=== PATIENT | female | born 1995 | race Caucasian/White ===

== ENCOUNTER 2023-09-02 20:44 | Outpatient (REF) | payer OTHER, SELFPAY | END 2023-09-02 20:45 | disposition home or self-care (01) | LOC: LAB 20:44 | PROVIDERS: Visit Provider Obstetrics & Gynecology | DX: N64.52 Nipple discharge (principal) | CPT/HCPCS: 87070; 87075; 87150 ==

== ENCOUNTER 2023-09-06 08:50 | Outpatient (OUT) | payer OTHER, SELFPAY ==
--- NOTE | 2023-09-06 08:58 | US_ITS ---
The [address] [address] Patient Name: VALERIE LAKHANI MRN: [id number] date: 1995 Sex: F Assigned Patient Location: US Current Patient Location: Accession/Order Number: [id number] Exam Date: 09/06/2023 09:03 Report Date: 09/06/2023 10:12 At the request of: RIAN WONG Procedure: US pelvis transvaginal EXAM: US pelvis transvaginal HISTORY: . Pelvic Pain R10.2 . COMPARISON: None. TECHNIQUE: Transvaginal scanning was performed FINDINGS: Scanning of the pelvis demonstrates uterus measuring 8.4 x 4.2 x 5.2 cm. Endometrial complex measures 6.6 mm. There is a nabothian cysts within the cervix. Neither ovary was identified. No fluid is noted in the cul-de-sac. US/US pelvis transvaginal IMPRESSION: 1. Normal-appearing uterus and endometrial complex. 2. Small nabothian cysts within the cervix. 3. Neither ovary was identified. Electronically authenticated by: PRAMOD SHERMAN Date: 09/06/2023 10:12
[2023-09-06 10:20] LABS: Basophils Percent Auto 0.4 % (0.2-2.0); Eosinophils Absolute Auto 0.2 10^3/uL (0.0-0.7); Eosinophils Percent Auto 2.1 % (0.9-7.0); Hematocrit 39.3 % (36.0-48.0); Hemoglobin 12.8 g/dL (12.0-16.0); Immature Granulocytes Abs Auto 0.02 10^3/uL (0.00-0.03); Immature Granulocytes Pct Auto 0.2 % (0.0-0.5); Lymphocytes Absolute Auto 2.1 10^3/uL (1.2-3.8); Lymphocytes Percent Auto 25.1 % (20.5-60.0); Mean Corpuscular HGB Conc 32.6 g/dL (29.9-35.2); Mean Corpuscular Hemoglobin 27.5 pg (26.7-34.0); Mean Corpuscular Volume 84.3 fL (81.0-99.0); Mean Platelet Volume 11.1 fL (9.5-13.5); Monocytes Absolute Auto 0.4 10^3/uL (0.3-0.8); Monocytes Percent Auto 4.7 % (1.7-12.0); Neutrophils Absolute Auto 5.6 10^3/uL (1.4-6.5); Neutrophils Percent Auto 67.5 % (43.0-75.0); Platelet Count 291 10^3/uL (150-450); Red Blood Count 4.66 10^6/uL (4.20-5.40); Red Cell Distribution Width 13.7 % (11.0-15.0); White Blood Count 8.3 10^3/uL (4.0-11.0)
[2023-09-06 10:47] LABS: Estimated Average Glucose 97 mg/dL
[2023-09-06 10:56] LABS: HCG Quantitative <1 mIU/mL; Thyroid Stimulating Hormone 5.942 uIU/mL (0.358-3.740)
[2023-09-07 05:10] LABS: DHEA-Sulfate 62.3 ug/dL (84.8-378.0); FSH <0.3 mIU/mL (.); Luteinizing Hormone(LH) 0.4 mIU/mL (.)
[2023-09-12 06:09] LABS: DHEA, Serum 138 ng/dL (31-701)
== END 2023-09-06 08:51 | disposition home or self-care (01) ==
PROVIDERS: Visit Provider Obstetrics & Gynecology
DX: R10.2 Pelvic and perineal pain (principal); N64.52 Nipple discharge
CPT/HCPCS: 36415; 76830; 82626; 82627; 83001; 83002; 83036; 84439; 84443; 84702; 85025

== ENCOUNTER 2024-05-19 19:43 | Outpatient (REF) | payer OTHER, SELFPAY ==
[2024-05-23 11:10] LABS: Age Gdln ACOG Testing Note (.); IGP, rfx Aptima HPV ASCU Note (.)
== END 2024-05-19 19:44 | disposition home or self-care (01) ==
LOC: LAB 19:43
PROVIDERS: Visit Provider Obstetrics & Gynecology
DX: Z01.419 Encounter for gynecological examination (general) (routine) without abnormal findings (principal)
CPT/HCPCS: 88175

== ENCOUNTER 2024-09-18 07:27 | Outpatient (OUT) | payer OTHER, SELFPAY ==
--- OUTSIDE RECORDS SUMMARY | 2024-09-18 07:30 | XMS_ITS | CCD ---
Author Organization [facility] Care Team Providers Care Tour Consultant Name Role Phone Mee Marsh Primary Care Provider PHU MCGEE Admitting Unavailable PHU MCGEE Attending Unavailable MISC, DR PRADO Primary Care Unavailable PHU MCGEE Consulting Unavailable PHU MCGEE Admitting Unavailable PHU MCGEE Attending Unavailable PHU MCGEE Primary Care Unavailable PHU MCGEE Consulting Unavailable JUDITH, DR MODI Admitting Unavailable JUDITH, DR MODI Attending Unavailable JUDITH, DR MODI Consulting Unavailable REQUEST, NONE LISTED Primary Care Unavaila ble JUDITH, DR MODI Admitting Unavailable JUDITH, DR MODI Attending Unavailable REQUEST, NONE LISTED Primary Care Unavaila ble JUDITH, DR MODI Consulting Unavailable ZIEBER, DR MICKEY Zepeda Consulting Unavailable JUDITH, DR MODI Admitting Unavailable JUDITH, DR MODI Attending Unavailable REQUEST, NONE LISTED Primary Care Unavaila ble JUDITH, DR MODI Consulting Unavailable PHU MCGEE Admitting Unavailable PHU MCGEE Attending Unavailable PHU MCGEE Primary Care Unavailable PHU MCGEE Admitting Unavailable PHU MCGEE Attending Unavailable ARELY, PHU Primary Care Unavailable JUDITH, DR MODI Consulting Unavailable PHU MCGEE Procedure Practitioner Unavailab PHU Carrillo Consulting Unavailable EFRAIN TRIANA Consulting Unavailable PAOLAC, DR PRADO Primary Care Unavailable PAY, DR NGUYỄN Admitting Unavailable PAY, DR NGUYỄN Attending Unavailable ROLANDO RALPH Consulting Unavailable ANNE-MARIE RUIZ Consulting Unavailable Mee Morse APRN, CNP Primary Care Provider Aniyah Waite Primary Care Physician JUAN JOSE Mays Attending Un available MARIE RUVALCABA Referring Unavailable MIGHT, MEE W Primary Care Unavailable MIGHT, MEE W Referring Unavailable MIGHT, MEE W Primary Care Unavailable SAVITA GARCIA Referring Unavailable MIGHT, MEE W Primary Care Unavailable MIGHT, MEE W Referring Unavailable MIGHT, MEE W Primary Care Unavailable MIGHT, MEE W Primary Care Unavailable MIGHT, MEE W Referring Unavailable MIGHT, MEE W Primary Care Unavailable MIGHT, MEE W Referring Unavailable MIGHT, MEE W Referring Unavailable MIGHT, MEE W Primary Care Unavailable MIGHT, MEE W Referring Unavailable MIGHT, MEE W Primary Care Unavailable MIGHT, MEE W Referring Unavailable MIGHT, MEE W Primary Care Unavailable MIGHT, MEE W Referring Unavailable MIGHT, MEE W Primary Care Unavailable BARBARA CARLTON Attending Unavailable MIGHT, MEE W Primary Care Unavailable DAVID HOFFMAN Attending Unavailable MIGHT, MEE W Primary Care Unavailable JUAN DAVID LEVY Attending Unavailable SAVITA GARCIA Attending Unavailable SAVITA GARCIA Attending Unavailable SAVITA GARCIA Attending Unavailable JUAN DAVID LEVY Attending Unavailable SAVITA GARCIA Attending Unavailable Unavailable Primary Care Provider Unavailabl e Allergies Allergy Classification Reported Allergen(s) Allergy Type Date of Onset Reaction(s) Facility Penicillins (antibiotic) (1 source) Penicillins Drug Allergy 6 [facility] (8 sources) Penicillins; Translations: [PENICILLINS] Propensity to adverse reactions to drug 6 [place] (1 source) Penicillins Drug allergy (disorder) 3 [facility] (5 sources) Ampicillin; Translations: [ampicillin] Drug Allergy 1 [facility] (3 sources) Penicillins Propensity to adverse reactions to drug 6 [facility] (1 source) Penicillin G Drug Allergy 3 [facility] (1 source) Penicillins Drug Intolerance 6 [facility] Work Phone: Medications Current Medications Medication Drug Class(es) Dates Sig (Normalized) Sig (Original) amitriptyline hydrochloride 150 mg oral tablet (3 sources) Tricyclic Antidepressant Start: 05-30-2023 End: 02-26-2024 take 1 tablet by mouth once daily amitriptyline (ELAVIL) 150 MG tablet Indications: Nonintractable chronic migraine Take 1 tablet by mouth nightly 90 tablet 1 05/30/2023 Active 24 hr buPROPion hydrochloride 150 mg extended release oral tablet (1 source) Aminoketone Start: 03-10-2021 take 1 tablet by mouth once daily in the morning buPROPion (WELLBUTRIN XL) 150 MG extended release tablet Indications: Dysthymia , Fatigue due to depression Take 1 tablet by mouth every morning 30 tablet 0 03/10/2021 Active ciprofloxacin 500 mg oral tablet (1 source) Quinolone Antimicrobial Start: 08-09-2019 End: 2019 take 1 tablet by mouth twice daily ciprofloxacin (CIPRO) 500 MG tablet Take 1 tablet by mouth 2 times daily for 10 days 20 tablet 0 08/09/2019 2019 Active cyclobenzaprine hydrochloride 10 mg oral tablet (4 sources) Muscle Relaxant Start: 01-28-2024 cyclobenzaprine (Flexeril) 10 MG tablet 01/28/2024 Active End: 02-26-2024 take 1 tablet by mouth three times daily cyclobenzaprine 10 mg tablet 02/26/2024 take 1 tablet (10 mg) by oral route 3 times per day desogestrel 0.15 mg / ethinyl estradiol 0.03 mg oral tablet (5 sources) Progestin, Estrogen Start: 08-28-2024 End: 08-28-2025 desogestrel-ethinyl estradiol (Apri) 0.15-30 MG-MCG tablet Indications: control counseling Take 1 tablet by mouth Daily 28 tablet 12 08/28/2024 08/28/2025 Active Start: 10-11-2023 take 1 tablet by brandon th once daily in the morning ENSKYCE 0.15-30 MG-MCG per tablet Take 1 tablet by mouth every morning 0 10/11/2023 Active take 1 tablet by brandon th once daily Enskyce 0.15 mg-0.03 mg tablet take 1 tablet by oral route once daily FLUoxetine 10 mg oral capsule (1 source) Serotonin Reuptake Inhibitor Start: 12-23-2020 take 1 capsule by mouth once daily FLUoxetine (PROZAC) 10 MG capsule Indications: Dysthymia Take 1 capsule by mouth daily 90 capsule 1 12/23/2020 Active fluticasone propionate 0.05 mg/actuat metered dose nasal spray (3 sources) Corticosteroid Start: 06-09-2020 take 1 spray(s) nasal route once daily fluticasone (FLONASE) 50 MCG/ACT nasal spray Indications: Seasonal allergic rhinitis due to pollen 1 spray by Each Nostril route daily 1 Bottle 1 06/09/2020 Active hydrOXYzine hydrochloride 25 mg oral tablet (4 sources) Antihistamine Start: 11-29-2022 take 1 tablet by mouth once daily as needed for anxiety hydrOXYzine HCl (ATARAX) 25 MG tablet Indications: Primary insomnia Take 1 tablet by mouth nightly as needed for Anxiety 90 tablet 1 11/29/2022 Active End: 02-26-2024 take 1 tablet by mouth three times daily hydroxyzine HCl 25 mg tablet 02/26/2024 take 1 tablet (25 mg) by oral route 3 times per day ibuprofen 400 mg oral tablet (5 sources) Nonsteroidal Anti-inflammatory Drug Start: 12-13-2023 take 1 tablet by mouth every six hours as needed ibuprofen 400 MG tablet Take 1 tablet by mouth every 6 (six) hours if needed 12/13/2023 Active ketorolac tromethamine 10 mg oral tablet (2 sources) Nonsteroidal Anti-inflammatory Drug, Cyclooxygenase Inhibitor Start: 06-17-2024 take 1 tablet by mouth every eight hours as needed for pain ketorolac (TORADOL) 10 MG tablet Take 1 tablet by mouth every 8 hours as needed for Pain 15 tablet 0 06/17/2024 Active Start: 06-17-2024 ketorolac (TOR ADOL) injection 15 mg levocetirizine dihydrochloride 5 mg oral tablet (2 sources) Histamine-1 Receptor Antagonist Start: 06-09-2020 take 1 tablet by mouth once daily levocetirizine (XYZAL) 5 MG tablet Indications: Seasonal allergic rhinitis due to pollen Take 1 tablet by mouth nightly 30 tablet 0 06/09/2020 Active levothyroxine sodium 0.15 mg oral tablet (11 sources) l-Thyroxine Start: 04-10-2024 take 1 tablet by mouth once daily levothyroxine (SYNTHROID) 150 MCG tablet Indications: Congenital hypothyroidism without goiter Take 1 tablet by mouth daily 30 tablet 0 04/10/2024 Active Start: 11-01-2023 take 1 tablet by brandon th once daily in the morning levothyroxine (SYNTHROID) 150 MCG tablet Take 1 tablet by mouth every morning Take on an empty stomach. 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 Take 1 tablet by mouth Daily 90 tablet 1 06/29/2020 Active take 1 tablet by brandon th once daily levothyroxine (SYNTHROID) 75 MCG tablet Take 75 mcg by mouth Daily 0 Active lidocaine hydrochloride 20 mg/ml mucous membrane topical solution (2 sources) Antiarrhythmic, Amide Local Anesthetic Start: 12-16-2023 lidocaine viscous hcl (XYLOCAINE) 2 % SOLN solution Indications: Strep pharyngitis Take 15 mLs by mouth as needed for Irritation 100 mL 0 12/16/2023 Active magnesium oxide 400 mg oral tablet (1 source) take 1 tablet by mouth in the morning magnesium oxide (Mag-Ox) 400 MG tablet Take 400 mg by mouth in the morning. Active 24 hr metFORMIN hydrochloride 500 mg extended release oral tablet (1 source) Biguanide Start: 03-18-2024 take 1 tablet by mouth every twenty-four hours at mealtime metFORMIN XR (Glucophage-XR) 500 MG 24 hr tablet Indications: Weight gain Take 1 tablet (500 mg) by mouth in the evening. Take with meals Do not crush, chew, or split. 90 tablet 03/18/2024 Active metroNIDAZOLE 500 mg oral tablet (1 source) Nitroimidazole Antimicrobial Start: 08-09-2019 End: 2019 take 1 tablet by mouth three times daily metroNIDAZOLE (FLAGYL) 500 MG tablet Take 1 tablet by mouth 3 times daily for 10 days 30 tablet 0 08/09/2019 2019 Active phentermine hydrochloride 37.5 mg oral tablet (5 sources) Sympathomimetic Amine Anorectic Start: 03-18-2024 take 1 tablet by mouth before mealtime phentermine (Adipex-P) 37.5 MG tablet Indications: Encounter for weight management Take 1 tablet (37.5 mg) by mouth in the morning. Take before meals. 90 tablet 04/15/2024 Active Start: 01-16-2024 End: 02-15-2024 take 1 tablet by mouth before mealtime phentermine (Adipex-P) 37.5 MG tablet Indications: Encounter for weight management Take 1 tablet (37.5 mg) by mouth in the morning. Take before meals. 30 tablet 01/16/2024 Active take 0.5 tablet by m outh once daily before breakfast Adipex-P 37.5 mg tablet take one-half tablet (18.75 mg) by oral route once daily before breakfast propranolol hydrochloride 40 mg oral tablet (5 sources) beta-Adrenergic Edith Start: 02-27-2023 End: 02-26-2024 take 1 tablet by mouth twice daily propranolol (INDERAL) 40 MG tablet Indications: Nonintractable chronic migraine Take 1 tablet by mouth 2 times daily 180 tablet 1 02/27/2023 Active Start: 12-23-2020 take 1 tablet by brandon th twice daily propranolol (INDERAL) 20 MG tablet Indications: Chronic migraine Take 1 tablet by mouth 2 times daily 180 tablet 1 12/23/2020 Active thyroid (fpc) 90 mg oral tablet (1 source) Start: 05-13-2024 take 1 tablet by mouth once daily thyroid ([place]) 90 MG tablet Take 1 tablet by mouth Daily 05/13/2024 Active topiramate 100 mg oral tablet (2 sources) Start: 09-09-2020 take 1 tablet by mouth once daily topiramate (TOPAMAX) 100 MG tablet Indications: Chronic migraine Take 1 tablet by mouth daily 30 tablet 1 09/09/2020 Active Start: 06-29-2020 take 1 tablet by brandon th once daily topiramate (TOPAMAX) 25 MG tablet Indications: Chronic migraine Take 1 tablet by mouth nightly 30 tablet 0 06/29/2020 Active Completed/Discontinued Medications Medication Drug Class(es) Dates Sig (Normalized) Sig (Original) dicyclomine hydrochloride 20 mg oral tablet (2 sources) Anticholinergic Start: 08-09-2019 End: 03-14-2020 take 1 tablet by mouth every four hours as needed for pain dicyclomine (BENTYL) 20 MG tablet Take 1 tablet by mouth every 4 hours as needed (Abdominal pain/cramping) 30 tablet 0 08/09/2019 03/14/2020 Discontinued (Therapy completed) 2 ml famotidine 10 mg/ml injection (1 source) Histamine-2 Receptor Antagonist Start: 08-09-2019 End: 08-09-2019 famotidine (PEPCID) injection 20 mg 2 ml fentaNYL 0.05 mg/ml injection (1 source) Opioid Agonist Start: 08-09-2019 End: 08-09-2019 fentaNYL (SUBLIMAZE) injection 50 mcg Iopamidol (1 source) Radiographic Contrast Agent Start: 08-09-2019 End: 08-09-2019 iopamidol (ISOVUE-370) 76 % injection 75 mL iopamidol (ISOVUE-370) 76 % injection 75 mL (1 source) Start: 06-17-2024 End: 06-17-2024 iopamidol (ISOVUE-370) 76 % injection 75 mL naproxen 500 mg oral tablet (5 sources) Nonsteroidal Anti-inflammatory Drug Start: 06-20-2019 End: 03-14-2020 take 1 tablet by mouth twice daily naproxen (NAPROSYN) 500 MG tablet Take 1 tablet by mouth 2 times daily 14 tablet 0 06/20/2019 03/14/2020 Discontinued (Therapy completed) take 1 tablet by brandon every four hours as needed for pain Naproxen Sodium (ALEVE) 220 MG CAPS Take 1 tablet by mouth every 4 hours as needed for Pain 0 Active 24 hr nicotine 0.875 mg/hr transdermal system (2 sources) Cholinergic Nicotinic Agonist Start: 06-01-2019 End: 03-14-2020 apply 1 dose transdermal route every twenty-four hours nicotine (NICODERM CQ) 21 MG/24HR Indications: Tobacco abuse Place 1 patch onto the skin every 24 hours 30 patch 2 06/01/2019 03/14/2020 Discontinued (Therapy completed) 2 ml ondansetron 2 mg/ml injection (1 source) Serotonin-3 Receptor Antagonist Start: 08-09-2019 End: 08-09-2019 ondansetron (ZOFRAN) injection 4 mg 50 ml sodium chloride 9 mg/ml injection (2 sources) Start: 06-17-2024 End: 06-17-2024 sodium chloride 0.9 % bolus 1,000 mL Start: 08-09-2019 End: 08-09-2019 0.9 % sodium chloride bolus Problems Active Problems Problem Classification Problem Date Documented Da te Episodic/Chronic Anxiety disorders (1 source) Anxiety disorder, unspecified Chronic Esophageal disorders (4 sources) Gastroesophageal reflux disease; Translations: [Gastro-esophageal reflux disease without esophagitis] 03-08-2023 Chronic Gastrointestinal hemorrhage (1 source) Hemorrhage of anus and rectum; Translations: [Hemorrhage of anus and rectum] Onset: 4 Episodic Headache; including migraine (3 sources) Migraine variants, not intractable; Translations: [Migraine, unspecified, not intractable, without status migrainosus] Onset: 2 05-31-2022 Chronic Immunizations and screening for infectious disease (1 source) Encounter for screening for human papillomavirus (HPV); Translations: [ENC SCREENING HUMAN PAPILLOMAVIRUS] Onset: 2 Episodic Mood disorders (13 sources) Fatigue; Translations: [Major depressive disorder, single episode, unspecified] Onset: 1 Chronic Nonspecific chest pain (2 sources) Chest wall pain; Translations: [Other chest pain] Onset: 4 06-17-2024 Episodic Open wounds of extremities (1 source) Laceration of lower limb; Translations: [Laceration of left lower extremity, initial encounter] Episodic Other complications of ; puerperium affecting management of mother (1 source) Obesity complicating childbirth; Translations: [OBESITY COMPLICATING CHILDBIRTH] Onset: 1 Chronic Other connective tissue disease (1 source) Pain in right arm Onset: 4 Episodic Other connective tissue disease (1 source) Pain in left arm Onset: 4 Episodic Other female genital disorders (4 sources) Abnormal uterine and vaginal bleeding, unspecified; Translations: [ABNORMAL UTERINE VAGINAL BLEED UNS] Onset: 2 Chronic Other female genital disorders (1 source) Vaginal bleeding; Translations: [Vaginal bleeding] Episodic Other gastrointestinal disorders (1 source) Mixed irritable bowel syndrome; Translations: [Mixed irritable bowel syndrome] Onset: 4 Chronic Other gastrointestinal disorders (1 source) Abdominal distension (gaseous); Translations: [Abdominal distension (gaseous)] Onset: 4 Episodic Other nervous system disorders (3 sources) Ulnar neuropathy of right arm; Translations: [Lesion of ulnar nerve, right upper limb] Onset: 3 03-01-2023 Chronic Other nervous system disorders (1 source) Other disturbances of skin sensation Onset: 4 Episodic Other nutritional; endocrine; and metabolic disorders (2 sources) Obesity, unspecified; Translations: [OBESITY UNSPECIFIED] Onset: 1 Chronic Other nutritional; endocrine; and metabolic disorders (3 sources) Morbid obesity; Translations: [Morbid (severe) obesity due to excess calories] Onset: 2 05-31-2022 Chronic Other screening for suspected conditions (not mental disorders or infectious disease) (1 source) Abnormal findings on diagnostic imaging of other specified body structures; Translations: [ABNORML FIND DX IMG OTH BODY STRUC] Onset: 2 Chronic Other screening for suspected conditions (not mental disorders or infectious disease) (4 sources) Encounter for screening for malignant neoplasm of cervix; Translations: [ENC SCREENING MALIG NEOPLASM CERV] Onset: 2 Episodic Residual codes; unclassified (3 sources) Unrefreshed by sleep; Translations: [Other sleep disorders] 02-06-2023 Chronic Residual codes; unclassified (3 sources) Daytime somnolence; Translations: [Other hypersomnia] 02-06-2023 Chronic Thyroid disorders (11 sources) 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; Translations: [Other specified hypothyroidism] Onset: 1 Chronic Unclassified (1 source) Patient encounter status; Translations: [Screen for STD (sexually transmitted disease)] Unclassified (1 source) CONTACT W/AND (SUSP) EXPOS COVID-19; Translations: [CONTACT W/AND (SUSP) EXPOS COVID-19] Onset: 1 Unclassified (1 source) PERSONAL HISTORY OF COVID-19; Translations: [PERSONAL HISTORY OF COVID-19] Onset: 1 Unclassified (1 source) Thyroid Problem Onset: 4 Unclassified (1 source) Ultrasound Onset: 4 Past or Other Problems Problem Classification Problem Date Documented Date Episodic/Chronic Abdominal pain (11 sources) Right lower quadrant pain; Translations: [Right lower quadrant pain] Onset: 08-09-2019 Resolved: 02-06-2023 08-09-2019 Episodic Acute bronchitis (1 source) Acute bronchitis; Translations: [Acute bronchitis, unspecified] Onset: 04-10-2024 Resolved: 04-10-2024 04-10-2024 Episodic Fluid and electrolyte disorders (1 source) Dehydration; Translations: [Dehydration] Onset: 12-13-2023 Episodic Lymphadenitis (11 sources) Mesenteric lymphadenitis; Translations: [Nonspecific mesenteric lymphadenitis] Onset: 08-09-2019 Resolved: 02-06-2023 08-09-2019 Episodic Nausea and vomiting (1 source) Nausea with vomiting, unspecified; Translations: [NAUSEA WITH VOMITING UNSPECIFIED] Onset: 10-05-2021 Episodic Other complications of ; puerperium affecting management of mother (1 source) Endocrine, nutritional and metabolic diseases complicating childbirth; Translations: [ENDOCRN NUTR MET DZ COMP CHILDBIRTH] Onset: 11-14-2021 Episodic Other complications of (4 sources) Other specified related conditions, third trimester; Translations: [OTH SPEC PREG RELATED COND 3RD TRI] Onset: 10-03-2021 Episodic Other lower respiratory disease (1 source) Shortness of breath; Translations: [SHORTNESS OF BREATH] Onset: 10-05-2021 Episodic Other nervous system disorders (3 sources) Anesthesia of skin; Translations: [Anesthesia of skin] Onset: 02-07-2024 Episodic Other and delivery including normal (5 sources) Single live ; Translations: [Encounter for supervision of normal , unspecified, third trimester] Onset: 10-24-2021 Episodic Other upper respiratory infections (1 source) Streptococcal pharyngitis; Translations: [Streptococcal pharyngitis] Onset: 12-13-2023 Episodic Previous (3 sources) Maternal care for low transverse scar from previous delivery; Translations: [MAT CARE LW TRANS SCAR PREV C/S DEL] Onset: 11-08-2021 Episodic Residual codes; unclassified (1 source) 39 weeks gestation of ; Translations: [39 WEEKS GESTATION OF ] Onset: 11-14-2021 Episodic Residual codes; unclassified (1 source) 37 weeks gestation of ; Translations: [37 WEEKS GESTATION OF ] Onset: 11-02-2021 Episodic Residual codes; unclassified (1 source) 34 weeks gestation of ; Translations: [34 WEEKS GESTATION OF ] Onset: 10-05-2021 Episodic Screening and history of mental health and substance abuse codes (1 source) Personal history of nicotine dependence; Translations: [PERSONAL HISTORY OF NICOTINE DEPEND] Onset: 11-04-2021 Episodic Spondylosis; intervertebral disc disorders; other back problems (3 sources) Radiculopathy, cervical region; Translations: [Radiculopathy, cervical region] Onset: 02-07-2024 Episodic Spontaneous (1 source) Miscarriage; Translations: [SAB (spontaneous )] Episodic Results Test Name Value Interpretation Reference Range [facility] Anion gap [Moles/Vol] 12 mmol/L 9 - 17 mmol/L [facility] Calcium [Mass/Vol] 8.9 mg/dL 8.6 - 10. 4 mg/dL [facility] Chloride [Moles/Vol] 106 mmol/L 98 - 10 7 mmol/L [facility] CO2 [Moles/Vol] 21 mmol/L 20 - 31 mmol/L [facility] Creatinine [Mass/Vol] 0.7 mg/dL 0.5 - 0.9 mg/dL [facility] Est, Glom Filt Rate - [facility] Comment on above: These results are not intended for use in patients <18 years of age. eGFR results are calculated without a race factor using the 2020 CKD-EPI equation. Careful clinical correlation is recommended, particularly when comparing to results calculated using previous equations. The CKD-EPI equation is less accurate in patients with extremes of muscle mass, extra-renal metabolism of creatine, excessive creatine ingestion, or following therapy that affects renal tubular secretion. Glucose [Mass/Vol] 96 mg/dL 70 - 99 mg/dL [facility] Potassium [Moles/Vol] 3.8 mmol/L 3.7 - 5.3 mmol/L [facility] Sodium [Moles/Vol] 139 mmol/L 135 - 144 mmol/L [facility] Urea nitrogen [Mass/Vol] 11 mg/dL 6 - 20 mg/dL [facility] Urea nitrogen/Creatinine [Mass ratio] 16 mg/mg 9 - 20 [facility] Basic Metabolic Profon 06-17 Anion gap [Moles/Vol] 12 mmol/L Normal -17 [facility] Comment on above: Performed By: #### T SIMON, PIEDAD, ADAM, KATHERINE ####[facility] [address] , [place] [id number] Lab Director: Matthew May MD BUN/CRE Ratio 16 Normal 9-20 [facility] Comment on above: Performed By: #### T PIEDAD MONTES, DIME, CDP ####[address] , [place] [id number] lab Director: Matthew May MD Calcium [Mass/Vol] 8.9 mg/dL Normal 8.6-10.[address] [facility] Comment on above: Performed By: #### T PIEDAD MONTES, DIME, CDP ####[address] , [place] [id number] lab Director: Matthew May MD Chloride [Moles/Vol] 106 mmol/L Normal 98-107 [facility] Comment on above: Performed By: #### T PIEDAD MONTES, DIME, CDP ####[address] , [place] [id number] Lab Director: Matthew May MD CO2 [Moles/Vol] 21 mmol/L Normal 20-31 [facility] Comment on above: Performed By: #### T PIEDAD MONTES, DIME, CDP ####[address] , [place] [id number] Lab Director: Matthew May MD Creatinine [Mass/Vol] 0.7 mg/dL Normal 0.5-0.9 [facility] Comment on above: Performed By: #### T PIEDAD MONTES, DIME, CDP ####[address] , [place] [id number] Lab Director: Matthew May MD GFR/1.73 sq M.predicted among non-blacks MDRD (S/P/Bld) [Vol rate/Area] mL/min/{1.73_m2} Normal >[address] [facility] Comment on above: Result Comment: These results are not intended for use in patients <18 years of age. eGFR results are calculated without a race factor using the 2020 CKD-EPI equation. Careful clinical correlation is recommended, particularly when comparing to results calculated using previous equations. The CKD-EPI equation is less accurate in patients with extremes of muscle mass, extra-renal metabolism of creatine, excessive creatine ingestion, or following therapy that affects renal tubular secretion. Performed By: #### T PIEDAD MONTES DIME, CDP ####[address] , [place] [phone] Director: Matthew May MD Glucose [Mass/Vol] 96 mg/dL Normal 70-[address] [facility] Comment on above: Performed By: #### T PIEDAD MONTES DIME, CDP ####[address] [place] [address] Lab Director: Matthew May MD Potassium [Moles/Vol] 3.8 mmol/L Normal 3.7-5.3 [facility] Comment on above: Performed By: #### PIEDAD SARAVIA DIME, CDP ####[address] [place] [address] Lab Director: Matthew May MD Sodium [Moles/Vol] 139 mmol/L Normal 135-[address] [facility] Comment on above: Performed By: #### T PIEDAD MONTES DIME, CDP ####[address] [place] [address] Lab Director: Matthew May MD Urea nitrogen [Mass/Vol] 11 mg/dL Normal 6-[address] [facility] Comment on above: Performed By: #### T PIEDAD MONTES DIME, CDP ####[address] , [place] [id number] Lab Director: Matthew May MD CBC with Auto Differentialon 06-17-2024 Basophils (Bld) [#/Vol] 0.07 10*3/uL [facility] Basophils/100 WBC (Bld) 1 % 0 - 2 % [facility] Eosinophils (Bld) [#/Vol] 0.18 10*3/uL [facility] Eosinophils/100 WBC (Bld) 1 % 1 - 4 % [facility] Erythrocyte distribution width (RBC) [Ratio] 13.2 % 11.8 - 14.4 % [facility] Hematocrit (Bld) [Volume fraction] 37.6 % 36.3 - 47.1 % [facility] Hemoglobin (Bld) [Mass/Vol] 12.5 g/dL 11.9 - 15.1 g/dL [facility] Immature granulocytes (Bld) [#/Vol] 0.03 10*3/uL [facility] Immature granulocytes/100 WBC (Bld) 0 % 0 [facility] Interpretation and review of laboratory results Abnormal [facility] Lymphocytes/100 WBC (Bld) 29 % 24 - 43 % [facility] Lymphocytes/100 WBC (Bld) 3.79 % High [facility] MCH (RBC) [Entitic mass] 27.9 pg 25. 2 - 33.5 pg [facility] MCHC (RBC) [Mass/Vol] 33.2 g/dL 28.4 - 34.8 g/dL [facility] MCV (RBC) [Entitic vol] 83.9 fL 82.6 - 102.9 fL [facility] Monocytes/100 WBC (Bld) 5 % 3 - 12 % [facility] Monocytes/100 WBC (Bld) 0.69 % [facility] Neutrophils/100 WBC (Bld) 64 % 36 - 65 % [facility] Nucleated RBC/100 WBC (Bld) [Ratio] 0.0 % 0.0 per 100 WBC [facility] Platelet mean volume (Bld) [Entitic vol] 11.0 fL 8.1 - 13.5 fL [facility] Platelets (Bld) [#/Vol] 298 10*3/uL [facility] RBC (Bld) [#/Vol] 4.48 10*6/uL 3.95 - 5.1 1 m/uL [facility] Segmented neutrophils/100 WBC (Bld) 8.24 % High [facility] WBC other (Bld) [#/Vol] 13.0 High [facility] CBC with Diffon 06-17-2024 Abs. Basophil 0.07 k/uL Normal 0.00-0.20 [facility] Comment on above: Performed By: #### T PIEDAD MONTES, DIME, CDP ####[address] , [place] [address] [facility] Director: Matthew May MD Abs.Imm.Granulocyte 0.03 k/uL Normal 0.00-0.[address] [facility] Comment on above: Performed By: #### T PIEDAD MONTES, DIME, CDP ####[address] [place] [address] Lab Director: Matthew May MD Abs.Neutrophil (Seg) 8.24 k/uL High 1.50-8.10 [facility] Comment on above: Performed By: #### T PIEDAD MONTES, DIME, CDP ####[address] [place] [address] Lab Director: Matthew May MD Basophils/100 WBC (Bld) 1 % Normal 0-2 [facility] Comment on above: Performed By: #### T PIEDAD MONTES, DIME, CDP ####[address] [place] [address] Lab Director: Matthew May MD Eosinophils (Bld) [#/Vol] 0.18 10*3/uL Normal 0.00-0.[address] [facility] Comment on above: Performed By: #### T PIEDAD MONTES, DIME, CDP ####[address] , [place] [id number] Lab Director: Matthew May MD Eosinophils/100 WBC (Bld) 1 % Normal 1-[address] [facility] Comment on above: Performed By: #### T ROPI, BMP, DIME, CDP ####[address] [place] [address] Lab Director: Matthew May MD Erythrocyte distribution width (RBC) [Ratio] 13.2 % Normal 11.8-14.[address] [facility] Comment on above: Performed By: #### T SIMON, BMP, DIME, CDP ####[address] [place] [address] Lab Director: Matthew May MD Hematocrit (Bld) [Volume fraction] 37.6 % Normal 36.3-47.[address] [facility] Comment on above: Performed By: #### T SIMON, BMP, DIME, CDP ####[address] , [facility] Lab Director: Matthew May MD Hemoglobin (Bld) [Mass/Vol] 12.5 g/dL Normal 11.9-15.[address] [facility] Comment on above: Performed By: #### T SIMON, BMP, DIME, CDP ####[address] , [facility] Lab Director: Matthew May MD Immature granulocytes/100 WBC (Bld) 0 % Normal [address] [facility] Comment on above: Performed By: #### T SIMON, BMP, DIME, CDP ####[address] , [facility] Lab Director: Matthew May MD Lymphocytes (Bld) [#/Vol] 3.79 10*3/uL High 1.10-3.[address] [facility] Comment on above: Performed By: #### T ROPI, BMP, DIME, CDP ####[address] [place] [address] Lab Director: Matthew May MD Lymphocytes/100 WBC (Bld) 29 % Normal 24-[address] [facility] Comment on above: Performed By: #### T ROPSharif, BMP, DIME, CDP ####[address] , [place] [address])[phone] Director: Matthew May MD MCH (RBC) [Entitic mass] 27.9 pg Normal 25.2-33.[address] [facility] Comment on above: Performed By: #### T SIMON, BMP, DIME, CDP ####[address] , [facility]83[facility])[phone] Director: Matthew May MD MCHC (RBC) [Mass/Vol] 33.2 g/dL Normal 28.4-34.8 [facility] Comment on above: Performed By: #### T ROPSharif, BMP, DIME, CDP ####[address] , [facility]83[facility])[phone] Director: Matthew May MD MCV (RBC) [Entitic vol] 83.9 fL Normal 82.6-102.9 [facility] Comment on above: Performed By: #### T SIMON, PIEDAD, DIME, CDP ####[address] , [facility]83[facility])[phone] Director: Matthew May MD Monocytes (Bld) [#/Vol] 0.69 10*3/uL Normal 0.10-1.[address] [facility] Comment on above: Performed By: #### T ROPSharif, BMP, DIME, CDP ####[address] , [place] [phone] Director: Matthew May MD Monocytes/100 WBC (Bld) 5 % Normal 3-12 M [facility] Comment on above: Performed By: #### T ROPSharif, BMP, DIME, CDP ####[address] , [place] [id number] Lab Director: Matthew May MD Neutrophil (Seg) 64 % Normal 36-65 [facility] Comment on above: Performed By: #### T ROPSharif, BMP, DIME, CDP ####[address] , [facility] Lab Director: Matthew May MD NRBC Automated 0.0 per [address] WBC Normal [address] [facility] Comment on above: Performed By: #### T ROPSharif, BMP, DIME, CDP ####[address] , [place] [address])[phone] Director: Matthew May MD Platelet mean volume (Bld) [Entitic vol] 11.0 fL Normal 8.1-13.[address] [facility] Comment on above: Performed By: #### T SIMON, BMP, DIME, CDP ####[address] , [place] [address])[phone] Director: Matthew May MD Platelets (Bld) [#/Vol] 298 10*3/uL Normal 138-[address] [facility] Comment on above: Performed By: #### T SIMON, PIEDAD, DIME, CDP ####[address] , [place] [address])[phone] Director: Matthew May MD RBC (Bld) [#/Vol] 4.48 10*6/uL Normal 3.95-5.[address] [facility] Comment on above: Performed By: #### T ROPI, BMP, DIME, CDP ####[address] , [place] [address])[phone] Director: Matthew May MD WBC (Bld) [#/Vol] 13.0 10*3/uL High 3.5-11.[address] [facility] Comment on above: Performed By: #### T ROPSharif, BMP, DIME, CDP ####[address] , [facility]83[facility])[phone] Director: Matthew May MD CT CHEST PULMONARY EMBOLISM W CONTRASTon 06-17-2024 CT CHEST PULMONARY EMBOLISM W CONTRAST EXAMINATION: CTA OF THE CHEST 06/17/2024 2:22 am TECHNIQUE: CTA of the chest was performed after the administration of intravenous contrast. Multiplanar reformatted images are provided for review. MIP images are provided for review. Automated exposure control, iterative reconstruction, and/or weight based adjustment of the mA/kV was utilized to reduce the radiation dose to as low as reasonably achievable. COMPARISON: None. HISTORY: ORDERING SYSTEM PROVIDED HISTORY: Pleuritic pain and elevated D-dimer rule out PE TECHNOLOGIST PROVIDED HISTORY: Pleuritic pain and elevated D-dimer rule out PE FINDINGS: Pulmonary Arteries: No pulmonary emboli are identified. No significant pulmonary arterial enlargement. Mediastinum: No thoracic aortic aneurysm. No aortic dissection is seen. Lungs/pleura: Minimal gravity dependent atelectasis. No consolidation. No lung mass. No pulmonary edema or bronchial thickening. Upper Abdomen: No acute inflammatory process or mass is seen in the upper abdomen. Soft Tissues/Bones: No axillary or supraclavicular lymphadenopathy is identified. No acute osseous abnormality is seen in the spine. No acute subcutaneous soft tissue abnormality is seen. IMPRESSION: 1. No pulmonary emboli. 2. Minimal gravity dependent atelectasis. Interpreted by: Matthew Gonzales MD Signed by: Matthew Gonzales MD 06/17/[address] [facility] 1. No pulmonary emboli. 2. Minimal gravity dependent atelectasis. [facility]IS CONSOLIDATED EXAMINATION: CTA OF THE CHEST 06/17/2024 2:22 am TECHNIQUE: CTA of the chest was performed after the administration of intravenous contrast. Multiplanar reformatted images are provided for review. MIP images are provided for review. Automated exposure control, iterative reconstruction, and/or weight based adjustment of the mA/kV was utilized to reduce the radiation dose to as low as reasonably achievable. COMPARISON: None. HISTORY: ORDERING SYSTEM PROVIDED HISTORY: Pleuritic pain and elevated D-dimer rule out PE TECHNOLOGIST PROVIDED HISTORY: Pleuritic pain and elevated D-dimer rule out PE FINDINGS: Pulmonary Arteries: No pulmonary emboli are identified. No significant pulmonary arterial enlargement. Mediastinum: No thoracic aortic aneurysm. No aortic dissection is seen. Lungs/pleura: Minimal gravity dependent atelectasis. No consolidation. No lung mass. No pulmonary edema or bronchial thickening. Upper Abdomen: No acute inflammatory process or mass is seen in the upper abdomen. Soft Tissues/Bones: No axillary or supraclavicular lymphadenopathy is identified. No acute osseous abnormality is seen in the spine. No acute subcutaneous soft tissue abnormality is seen. [facility] RIS CONSOLIDATED Matthew Gonzales MD - 06/17/2024 EXAMINATION: CTA OF THE CHEST 06/17/2024 2:22 am TECHNIQUE: CTA of the chest was performed after the administration of intravenous contrast. Multiplanar reformatted images are provided for review. MIP images are provided for review. Automated exposure control, iterative reconstruction, and/or weight based adjustment of the mA/kV was utilized to reduce the radiation dose to as low as reasonably achievable. COMPARISON: None. HISTORY: ORDERING SYSTEM PROVIDED HISTORY: Pleuritic pain and elevated D-dimer rule out PE TECHNOLOGIST PROVIDED HISTORY: Pleuritic pain and elevated D-dimer rule out PE FINDINGS: Pulmonary Arteries: No pulmonary emboli are identified. No significant pulmonary arterial enlargement. Mediastinum: No thoracic aortic aneurysm. No aortic dissection is seen. Lungs/pleura: Minimal gravity dependent atelectasis. No consolidation. No lung mass. No pulmonary edema or bronchial thickening. Upper Abdomen: No acute inflammatory process or mass is seen in the upper abdomen. Soft Tissues/Bones: No axillary or supraclavicular lymphadenopathy is identified. No acute osseous abnormality is seen in the spine. No acute subcutaneous soft tissue abnormality is seen. IMPRESSION: 1. No pulmonary emboli. 2. Minimal gravity dependent atelectasis. [facility] Radiology Study observation (narrative) [facility] D-Dimer Teston 06-17-2024 D-Dimer Test 0.76 ug/mL FEU High 0.00-0.59 [facility] Comment on above: Result Comment: When combined with a low clinical probability, a D dimer value of <0.50 ug/mL FEU is considered negative for DVT and PE (negative predictive value of 98%, sensitivity of 97%). If this test is not being used to help rule out DVT and PE, then the following reference range should be utilized: 0.00 - 0.59 ug/mL FEU. The D-Dimer assay is intended for use as an aid in the diagnosis of venous thromboembolism (DVT and PE) and the results should be interpreted in conjunction with the patient's medical history, clinical presentation, and other findings. Elevated levels of D-dimer activity can be seen in any state of coagulation activation and is not recommended in patients with therapeutic dose anticoagulant therapy for >24 hours, fibrinolytic therapy within the previous 7 days, trauma or surgery within the previous 4 weeks, disseminated malignancies, aortic aneurysm, sepsis, severe infections, pneumonia, severe skin infections, liver cirrhosis, advanced age, coronary disease, diabetes, and . A very low percentage of patients with DVT may yield D-dimer results below the cutoff of 0.5 ug/mL FEU. This is known to be more prevalent in patients with distal DVT. Performed By: #### T SIMON, PIEDAD, ADAM, CDP ####[facility] [place] [address] lab Director: Matthew May MD D-Dimer, Quantitativeon 06-01 Fibrin D-dimer FEU (PPP) [Mass/Vol] 0.76 [facility] Comment on above: When combined with a low clinical probability, a D dimer value of <0.50 ug/mL FEU is considered negative for DVT and PE (negative predictive value of 98%, sensitivity of 97%). If this test is not being used to help rule out DVT and PE, then the following reference range should be utilized: 0.00 - 0.59 ug/mL FEU. The D-Dimer assay is intended for use as an aid in the diagnosis of venous thromboembolism (DVT and PE) and the results should be interpreted in conjunction with the patient's medical history, clinical presentation, and other findings. Elevated levels of D-dimer activity can be seen in any state of coagulation activation and is not recommended in patients with therapeutic dose anticoagulant therapy for >24 hours, fibrinolytic therapy within the previous 7 days, trauma or surgery within the previous 4 weeks, disseminated malignancies, aortic aneurysm, sepsis, severe infections, pneumonia, severe skin infections, liver cirrhosis, advanced age, coronary disease, diabetes, and . A very low percentage of patients with DVT may yield D-dimer results below the cutoff of 0.5 ug/mL FEU. This is known to be more prevalent in patients with distal DVT. Interpretation and review of laboratory results Abnormal [facility] Portable XR Chest AP single viewon 06-17-2024 Clear chest without acute cardiopulmonary process. [facility] CONSOLIDATED EXAMINATION: ONE XRAY VIEW OF THE CHEST 06/17/2024 12:48 am COMPARISON: 12/16/2018 HISTORY: ORDERING SYSTEM PROVIDED HISTORY: sob TECHNOLOGIST PROVIDED HISTORY: sob FINDINGS: Cardiac and mediastinal silhouettes appear within normal limits for size. Pulmonary vascularity is normal. No consolidation or pleural effusion. No pneumothorax. No acute osseous abnormality is identified. [facility] CONSOLIDATED Matthew Gonzales MD - 06/17/2024 EXAMINATION: ONE XRAY VIEW OF THE CHEST 06/17/2024 12:48 am COMPARISON: 12/16/2018 HISTORY: ORDERING SYSTEM PROVIDED HISTORY: sob TECHNOLOGIST PROVIDED HISTORY: sob FINDINGS: Cardiac and mediastinal silhouettes appear within normal limits for size. Pulmonary vascularity is normal. No consolidation or pleural effusion. No pneumothorax. No acute osseous abnormality is identified. IMPRESSION: Clear chest without acute cardiopulmonary process. [facility] Radiology Study observation (narrative) [facility] Portable XR Chest AP single viewOrdered By: Matthew Gonzales on 06-17-2024 [facility] Work Phone: Troponinon 06-17-2024 Troponin I.cardiac High sensitivity method [Mass/Vol] ng/L 0 - 14 ng/L [facility] Comment on above: High Sensitivity Tro ponin values cannot be compared with other Troponin methodologies. [facility] Troponin, High Sens <6 Normal 0-[address] [facility] Comment on above: Result Comment: High Sensitivity Troponin values cannot be compared with other Troponin methodologies. Performed By: #### T PIEDAD MONTES, ADAM, CDP ####[facility] [place] [address] lab Director: Matthew May MD XR CHEST PORTABLEon 06-17-20 24 XR CHEST PORTABLE EXAMINATION: ONE XRAY VIEW OF THE CHEST 06/17/2024 12:48 am COMPARISON: 12/16/2018 HISTORY: ORDERING SYSTEM PROVIDED HISTORY: sob TECHNOLOGIST PROVIDED HISTORY: sob FINDINGS: Cardiac and mediastinal silhouettes appear within normal limits for size. Pulmonary vascularity is normal. No consolidation or pleural effusion. No pneumothorax. No acute osseous abnormality is identified. IMPRESSION: Clear chest without acute cardiopulmonary process. Interpreted by: Matthew Gonzales MD Signed by: Matthew Gonzales MD 06/17/[address] [facility] Food,Common Adult Pron 04-07 Clam IgE <0.10 Normal 0.00-0.[address] [facility] Comment on above: Performed By: #### L IP, CP, SAVITA, CDP ####[address] [place] [id number] Lab Director: Matthew May MD#### CELP, ICADL ####[address] [id number] Lab Director: David Arzate MD Codfish IgE <0.10 Normal 0.00-0.[address] [facility] Comment on above: Performed By: #### L IP, CP, SAVITA, CDP ####[address] [place] [phone] Lab Director: Matthew May MD#### CELP, ICADL ####[address] [id number] Lab Director: David Arzate MD Bronx IgE <0.10 Normal 0.00-0.[address] [facility] Comment on above: Performed By: #### L IP, CP, SAVITA, CDP ####[address] [place] [phone] Lab Director: Matthew May MD#### CELP, ICADL ####[facility] [id number] [place], [place] [id number] Lab Director: David Arzate MD Egg, Whole IgE <0.10 Normal 0.00-0.34 [facility] Comment on above: Performed By: #### L IP, CP, SAVITA, CDP ####[address] , [place] 715[address]83 Lab Director: Matthew May MD#### CELP, ICADL ####[address] [phone] Lab Director: David Arzate MD Milk (Cow) IgE <0.10 Normal 0.00-0.34 [facility] Comment on above: Performed By: #### L IP, CP, SAVITA, CDP ####[address] [place], [place] [address]83 Lab Director: Matthew May MD#### CELP, ICADL ####[address] [phone] Lab Director: David Arzate MD Peanut IgE <0.10 Normal 0.00-0.[address] [facility] Comment on above: Performed By: #### L IP, CP, SAVITA, CDP ####[address] [place], [place] [id number] Lab Director: Matthew May MD#### CELP, ICADL ####[address] [id number] Lab Director: David Arzate MD Scallop IgE <0.10 Normal 0.00-0.[address] [facility] Comment on above: Performed By: #### L IP, CP, SAVITA, CDP ####[address] [place], [place] 8[address]83 Lab Director: Matthew May MD#### CELP, ICADL ####[address] [phone] Lab Director: David Arzate MD Shrimp IgE <0.10 Normal 0.00-0.[address] [facility] Comment on above: Performed By: #### L IP, CP, SAVITA, CDP ####[address] [place], [place] 3763783 Lab Director: Matthew May MD#### CELP, ICADL ####[place] [address] [place], [place] [id number] Lab Director: David Arzate MD Soybean IgE <0.10 Normal 0.00-0.[address] [facility] Comment on above: Performed By: #### L IP, CP, SAVITA, CDP ####[address] [place], [place] [address] Lab Director: Matthew May MD#### CELP, ICADL ####[place] [address] [place], [place] [id number] Lab Director: David Arzate MD Orlinda/Bl.Orlinda IgE <0.10 Normal 0.00-0.34 [facility] Comment on above: Result Comment: ALLERGEN, INTERP, IMMUNOCAP SCORE IGE <0.10 Class 0 No significant level detected 0.10-0.34 Class 0/1 Clinical relevance undertermined 0.35 to 0.70 Class 1 Low 0.71 to 3.50 Class 2 Moderate 3.51 to 17.50 Class 3 High 17.51 to 50.00 Class 4 Very High 50.01 to 100.00 Class 5 Very High >100.00 Class 6 Very High units: kU/L Increasing ranges are reflective of increasing concentrations of allergen specific IgE. These concentrations may not correlate with the degree of clinical response or skin testing results when challenged with a specific allergen. The correlation of allergy laboratory results with the clinical history and in vivo reactivity to specific allergens is essential. A negative test may not rule out clinical allergy or even anaphylaxis. Performed By: #### L IP, CP, SAVITA, CDP ####[address] [place], [place] [address] Lab Director: Matthew May MD#### CELP, ICADL ####[place] [address] [place], [place] [id number] Lab Director: David Arzate MD Wheat IgE <0.10 Normal 0.00-0.[address] [facility] Comment on above: Performed By: #### L IP, CP, SAVITA, CDP ####[address] [place] [address] [facility] Director: Matthew May MD#### CELP, ICADL ####[address] [id number] [facility] Director: David Arzate MD Celiac Disease Panelon 04-06 Gliadin Deam Pep IgA 1.2 U/mL Normal <7.0 [facility] Comment on above: Result Comment: CELIAC INTERPRETATION <7.0 Negative 7.0-10.0 Equivocal >10.0 Positive units: U/mL Performed By: #### L IP, CP, SAVITA, CDP #### [address] [place] [phone] Box Maker: Matthew May MD #### CELP, ICADL #### [facility] [address] [place], [place] [phone] Box Maker: David Arzate MD Gliadin Deam Pep IgG <0.4 Normal <7.0 [facility] Comment on above: Result Comment: CELIAC INTERPRETATION <7.0 Negative 7.0-10.0 Equivocal >10.0 Positive units: U/mL Performed By: #### L IP, CP, SAVITA, CDP #### [address] [place] [address] Box Maker: Matthew May MD #### CELP, ICADL #### [place] [address] [place], [place] [phone] Box Maker: David Arzate MD Tiss Transglutam IgA 0.4 U/mL Normal <7.0 [facility] Comment on above: Result Comment: CELIAC INTERPRETATION <7.0 Negative 7.0-10.0 Equivocal >10.0 Positive units: U/mL Performed By: #### L IP, CP, SAVITA, CDP #### [address] [place], [place] [phone] Box Maker: Matthew May MD #### CELP, ICADL #### [place] [address] [place], [place] [phone] Box Maker: David Arzate MD Celiac Disease Panelon 04-04 IgA [Mass/Vol] 160 mg/dL Normal 70-400 [facility] Comment on above: Performed By: #### L IP, CP, SAVITA, CDP #### [address] [place], [place] [phone] Box Maker: Matthew May MD #### CELP, ICADL #### [address] [phone] Box Maker: David Arzate MD Food,Common Adult Pron 04-04 Immunoglobulin E 40 IU/mL Normal 0-100 [facility] Comment on above: Performed By: #### L IP, CP, SAVITA, CDP ####[address] , [place] 868[address] Lab Director: Matthew May MD#### CELP, ICADL ####[address] [id number] Lab Director: David Arzate MD Lipid Profileon 04-04-2024 Cholesterol [Mass/Vol] 245 mg/dL High 0-199 [facility] Comment on above: Result Comment: Cholesterol Guidelines: <200 Desirable 200-240 Borderline >240 Undesirable Performed By: #### T SH ####[address] , [place] [id number] Lab Director: Matthew May MD#### GLYHGB, LIPR ####[place] [address] [place], [place] [id number] Lab Director: David Arzate MD Cholesterol in HDL [Mass/Vol] 47 mg/dL Normal >[address] [facility] Comment on above: Result Comment: HDL Guidelines: <40 Undesirable 40-59 Borderline >59 Desirable Performed By: #### T SH ####[address] [place] [address] Lab Director: Matthew May MD#### GLYHGB, LIPR ####[place] [address] [place] [address] Lab Director: David Arzate MD Cholesterol in LDL [Mass/Vol] 157 mg/dL High 0-[address] [facility] Comment on above: Result Comment: LDL Guidelines: <100 Desirable 100-129 Near to/above Desirable 130-159 Borderline >159 Undesirable Direct (measured) LDL and calculated LDL are not interchangeable tests. Performed By: #### T SH ####[address] [place] [address] Lab Director: Matthew May MD#### GLYHGB, LIPR ####[place] [address] [place] [address] Lab Director: David Arzate MD Cholesterol in VLDL [Mass/Vol] 41 mg/dL Normal [facility] Comment on above: Performed By: #### T SH ####[address] [place] [address] Lab Director: Matthew May MD#### GLYHGB, LIPR ####[place] [address] [place] [address] Lab Director: David Arzate MD Cholesterol.total/Cholest deni in HDL [Mass ratio] 5.0 {ratio} Normal [facility] Comment on above: Performed By: #### T SH ####[address] [place] [address] Lab Director: Matthew May MD#### GLYHGB, LIPR ####[id number] [place] [address] Lab Director: David Arzate MD Triglyceride [Mass/Vol] 204 mg/dL High <150 M [facility] Comment on above: Result Comment: Triglyceride Guidelines: <150 Desirable 150-199 Borderline 200-499 High >499 Very high Based on AHA Guidelines for fasting triglyceride, September 2012. Performed By: #### T SH ####[address] [place], [place] [id number] Lab Director: Matthew May MD#### GLYHGB, LIPR ####[address] [address] Lab Director: David Arzate MD Thyroxine, Freeon 04-04-2024 Thyroxine, Free 0.7 ng/dL Low 0.92-1.68 [facility] Comment on above: Performed By: #### F T4 ####[address] [address])[phone] Director: David Arzate MD Amylaseon 04-03-2024 Amylase [Catalytic activity/Vol] 28 U/L Normal 28-[address] [facility] Comment on above: Performed By: #### L IP, CP, SAVITA, CDP #### [address] [place], [place] [phone] Box Maker: Matthew May MD #### CELP, ICADL #### [address] [address] Box Maker: David Arzate MD CBC with Diffon 04-03-2024 Abs. Basophil 0.04 k/uL Normal 0.00-0.20 [facility] Comment on above: Performed By: #### L IP, CP, SAVITA, CDP #### [facility] [address] [place] [address] Dr. [place], [place] [phone] Box Maker: Matthew May MD #### CELP, ICADL #### [address] [phone] Box Maker: David Arzate MD Abs.Imm.Granulocyte 0.03 k/uL Normal 0.00-0.[address] [facility] Comment on above: Performed By: #### L IP, CP, SAVITA, CDP #### [address] [place] [phone] Box Maker: Matthew May MD #### CELP, ICADL #### [id number] Box Maker: David Arzate MD Abs.Neutrophil (Seg) 5.98 k/uL Normal 1.50-8.10 [facility] Comment on above: Performed By: #### L IP, CP, SAVITA, CDP #### [address] [place] [address] Box Maker: Matthew May MD #### CELP, ICADL #### [place] [address] Box Maker: David Arzate MD Basophils/100 WBC (Bld) 1 % Normal 0-2 [facility] Comment on above: Performed By: #### L IP, CP, SAVITA, CDP #### [address] [place] [phone] Box Maker: Matthew May MD #### CELP, ICADL #### [place] [address] Box Maker: David Arzate MD Eosinophils (Bld) [#/Vol] 0.16 10*3/uL Normal 0.00-0.[address] [facility] Comment on above: Performed By: #### L IP, CP, SAVITA, CDP #### [address] [place] [phone] Box Maker: Matthew May MD #### CELP, ICADL #### [address] [phone] Box Maker: David Arzate MD Eosinophils/100 WBC (Bld) 2 % Normal 1-[address] [facility] Comment on above: Performed By: #### L IP, CP, SAVITA, CDP #### [address] [place] [phone] Box Maker: Matthew May MD #### CELP, ICADL #### [address] [phone] Box Maker: David Arzate MD Erythrocyte distribution width (RBC) [Ratio] 14.1 % Normal 11.8-14.[address] [facility] Comment on above: Performed By: #### L IP, CP, SAVITA, CDP #### [address] [place] [phone] Box Maker: Matthew May MD #### CELP, ICADL #### [address] [phone] Box Maker: David Arzate MD Hematocrit (Bld) [Volume fraction] 40.4 % Normal 36.3-47.[address] [facility] Comment on above: Performed By: #### L IP, CP, SAVITA, CDP #### [address] [place] [phone] Box Maker: Matthew May MD #### CELP, ICADL #### [address] [phone] Box Maker: David Arzate MD Hemoglobin (Bld) [Mass/Vol] 13.4 g/dL Normal 11.9-15.[address] [facility] Comment on above: Performed By: #### L IP, CP, SAVITA, CDP #### [address] [place] [phone] Box Maker: Matthew May MD #### CELP, ICADL #### [place] [phone] Box Maker: David Arzate MD Immature granulocytes/100 WBC (Bld) 0 % Normal [address] [facility] Comment on above: Performed By: #### L IP, CP, SAVITA, CDP #### [address] [place] [phone] ( Box Maker: Matthew May MD #### CELP, ICADL #### [place] [address] Box Maker: David Arzate MD Lymphocytes (Bld) [#/Vol] 2.24 10*3/uL Normal 1.10-3.[address] [facility] Comment on above: Performed By: #### L IP, CP, SAVITA, CDP #### [address] [place] [phone] ( Box Maker: Matthew May MD #### CELP, ICADL #### [place] [address] Box Maker: David Arzate MD Lymphocytes/100 WBC (Bld) 25 % Normal 24-[address] [facility] Comment on above: Performed By: #### L IP, CP, SAVITA, CDP #### [address] [place] [phone] Box Maker: Matthew May MD #### CELP, ICADL #### [place] [address] Box Maker: David Arzate MD MCH (RBC) [Entitic mass] 27.6 pg Normal 25.2-33.[address] [facility] Comment on above: Performed By: #### L IP, CP, SAVITA, CDP #### [address] [place] [phone] Box Maker: Matthew May MD #### CELP, ICADL #### [place] [address] Box Maker: David Arzate MD MCHC (RBC) [Mass/Vol] 33.2 g/dL Normal 28.4-34.8 [facility] Comment on above: Performed By: #### L IP CP, SAVITA, CDP #### [address] [place] [phone] Box Maker: Matthew May MD #### CELP, ICADL #### [place] [address] Box Maker: David Arzate MD MCV (RBC) [Entitic vol] 83.3 fL Normal 82.6-102.9 [facility] Comment on above: Performed By: #### L XENA LEE, SAVITA, CDP #### [address] [place] [phone] Box Maker: Matthew May MD #### CELJeff, ICADL #### [place] [address] Box Maker: David Arzate MD Monocytes (Bld) [#/Vol] 0.40 10*3/uL Normal 0.10-1.[address] [facility] Comment on above: Performed By: #### L JESUS CP, SAVITA, CDP #### [address] [place] [phone] Box Maker: Matthew May MD #### CELP, ICADL #### [place] [address] Box Maker: David Arzate MD Monocytes/100 WBC (Bld) 5 % Normal 3-12 M [facility] Comment on above: Performed By: #### L IP CP, SAVITA, CDP #### [address] [place], [place] [phone] Box Maker: Matthew May MD #### CELP, ICADL #### [address] [phone] Box Maker: David Arzate MD Neutrophil (Seg) 67 % High 36-65 [facility] Comment on above: Performed By: #### L IP, CP, SAVITA, CDP #### [address] [place] [address] Box Maker: Matthew May MD #### CELP, ICADL #### [address] [phone] Box Maker: David Arzate MD NRBC Automated 0.0 per 100 WBC Normal 0.[address] [facility] Comment on above: Performed By: #### L IPXENA, SAVITA, CDP #### [address] [place] [phone] Box Maker: Matthew May MD #### CELP, ICADL #### [address] [phone] Box Maker: David Arzate MD Platelet mean volume (Bld) [Entitic vol] 10.8 fL Normal 8.1-13.[address] [facility] Comment on above: Performed By: #### L IP CP, SAVITA, CDP #### [address] [place] [address] Box Maker: Matthew May MD #### CELP, ICADL #### [address] [phone] Box Maker: David Arzate MD Platelets (Bld) [#/Vol] 271 10*3/uL Normal 138-[address] [facility] Comment on above: Performed By: #### L IP, CP, SAVITA, CDP #### [facility] [address] [place], [place] [phone] Box Maker: Matthew May MD #### CELP, ICADL #### [address] [place] [address] Box Maker: David Arzate MD RBC (Bld) [#/Vol] 4.85 10*6/uL Normal 3.95-5.[address] [facility] Comment on above: Performed By: #### L IP, CP, SAVITA, CDP #### [address] [place], [place] [phone] Box Maker: Matthew May MD #### CELP, ICADL #### [address] [address] Box Maker: David Arzate MD WBC (Bld) [#/Vol] 8.9 10*3/uL Normal 3.5-11.[address] [facility] Comment on above: Performed By: #### L IP, CP, SAVITA, CDP #### [address] [place], [place] [phone] Box Maker: Matthew May MD #### CELP, ICADL #### [address] [address] Box Maker: David Arzate MD Comp Metabolic Profon 2023 Albumin [Mass/Vol] 4.0 g/dL Normal 3.5-5.[address] [facility] Comment on above: Performed By: #### L IP, CP, SAVITA, CDP #### [address] [place] [address] Box Maker: Matthew May MD #### CELP, ICADL #### [address] [address] [place] [address] Box Maker: David Arzate MD Albumin/Glob Ratio 1.2 Normal 1.0-2.[address] [facility] Comment on above: Performed By: #### L IP, CP, SAVITA, CDP #### [facility] [address] [place] [phone] Box Maker: Matthew May MD #### CELP, ICADL #### [address] [phone] Box Maker: David Arzate MD Alkaline Phos 98 U/L Normal 35-104 [facility] Comment on above: Performed By: #### L IP, CP, SAVITA, CDP #### [facility] [address] [place] [phone] Box Maker: Mathtew May MD #### CELP, ICADL #### [address] [phone] Box Maker: David Arzate MD ALT [Catalytic activity/Vol] 11 U/L Normal 5-[address] [facility] Comment on above: Performed By: #### L IP, CP, SAVITA, CDP #### [facility] [address] [place] [address] Dr. [place] [phone] Box Maker: Matthew May MD #### CELP, ICADL #### [address] [address] Box Maker: David Arzate MD Anion gap [Moles/Vol] 11 mmol/L Normal 9-17 [facility] Comment on above: Performed By: #### L IP, CP, SAVITA, CDP #### [address] [place], [place] 3384483 Box Maker: Matthew May MD #### CELP, ICADL #### [address] [address] Box Maker: David Arzate MD AST [Catalytic activity/Vol] 14 U/L Normal <[address] [facility] Comment on above: Performed By: #### L IP, CP, SAVITA, CDP #### [facility] [address] [place] [address] Box Maker: Matthew May MD #### CELP, ICADL #### [address] [phone] Box Maker: David Arzate MD Bilirubin [Mass/Vol] 0.2 mg/dL Low 0.3-1.2 [facility] Comment on above: Performed By: #### L IP, CP, SAVITA, CDP #### [facility] [address] [place] [address] Box Maker: Matthew May MD #### CELP, ICADL #### [address] [phone] Box Maker: David Arzate MD BUN/CRE Ratio 10 Normal 9-20 [facility] Comment on above: Performed By: #### L IP, CP, SAVITA, CDP #### [facility] [address] [place] [address] Box Maker: Matthew May MD #### CELP, ICADL #### [address] [phone] Box Maker: David Arzate MD Calcium [Mass/Vol] 9.4 mg/dL Normal 8.6-10.[address] [facility] Comment on above: Performed By: #### L IP, CP, SAVITA, CDP #### [facility] [address] [place] [address] Box Maker: Matthew May MD #### CELP, ICADL #### [address] [phone] Box Maker: David Arzate MD Chloride [Moles/Vol] 103 mmol/L Normal 98-107 [facility] Comment on above: Performed By: #### L IP, CP, SAVITA, CDP #### [facility] [address] [place] [address] Box Maker: Matthew May MD #### CELP, ICADL #### [address] [phone] Box Maker: David Arzate MD CO2 [Moles/Vol] 23 mmol/L Normal 20-31 [facility] Comment on above: Performed By: #### L IP, CP, SAVITA, CDP #### [facility] [address] [place] [address] Box Maker: Matthew May MD #### CELJeff, ICADL #### [address] [place], [place] [phone] Box Maker: David Arzate MD Creatinine [Mass/Vol] 0.9 mg/dL Normal 0.5-0.9 [facility] Comment on above: Performed By: #### L IP, CP, SAVITA, CDP #### [facility] [address] [place], [place] [phone] Box Maker: Matthew May MD #### CELP, ICADL #### [address] [phone] Box Maker: David Arzate MD GFR/1.73 sq M.predicted among non-blacks MDRD (S/P/Bld) [Vol rate/Area] 89 mL/min/{1.73_m2} Normal >60 [facility] Comment on above: Result Comment: These results are not intended for use in patients <18 years of age. eGFR results are calculated without a race factor using the 2020 CKD-EPI equation. Careful clinical correlation is recommended, particularly when comparing to results calculated using previous equations. The CKD-EPI equation is less accurate in patients with extremes of muscle mass, extra-renal metabolism of creatine, excessive creatine ingestion, or following therapy that affects renal tubular secretion. Performed By: #### L IP, CP, SAVITA, CDP #### [address] [place], [place] [phone] Box Maker: Matthew May MD #### CELP, ICADL #### [address] [place], [place] 0175908 Box Maker: David Arzate MD Glucose [Mass/Vol] 88 mg/dL Normal 70-[address] [facility] Comment on above: Performed By: #### L IP, CP, SAVITA, CDP #### [facility] [address] [place] [address] [place], [place] [phone] Box Maker: Matthew May MD #### CELP, ICADL #### [address] [phone] Box Maker: David Arzate MD Potassium [Moles/Vol] 4.2 mmol/L Normal 3.7-5.3 [facility] Comment on above: Performed By: #### L IP, CP, ASVITA, CDP #### [address] [place], [place] [phone] Box Maker: Matthew May MD #### CELP, ICADL #### [address] [phone] Box Maker: David Arzate MD Protein [Mass/Vol] 7.3 g/dL Normal 6.4-8.[address] [facility] Comment on above: Performed By: #### L IP, CP, SAVITA, CDP #### [facility] [address] [place] [address] [place], [place] [phone] Box Maker: Matthew May MD #### CELP, ICADL #### [address] [phone] Box Maker: David Arzate MD Sodium [Moles/Vol] 137 mmol/L Normal 135-[address] [facility] Comment on above: Performed By: #### L IP, CP, SAVITA, CDP #### [facility] [address] [place] [address] Box Maker: Matthew May MD #### CELP, ICADL #### [facility] [address] [place] [address] Box Maker: David Arzate MD Urea nitrogen [Mass/Vol] 9 mg/dL Normal 6-[address] [facility] Comment on above: Performed By: #### L IP, CP, SAVITA, CDP #### [facility] [address] [place] [address] Box Maker: Matthew May MD #### CELP, ICADL #### [facility] [address] [place] [address] Box Maker: David Arzate MD Hemoglobin A1Con 04-03-2024 Glucose [Mass/Vol] 103 mg/dL Normal [facility] Comment on above: Result Comment: The ADA and AACC recommend providing the estimated average glucose result to permit better patient understanding of their HBA1c result. Performed By: #### T SH ####[facility] , [place] 5591983 Lab Director: Matthew May MD#### GLYHGB, LIPR ####[facility] [place], [place] [phone] Director: David Arzate MD HbA1c (Bld) [Mass fraction] 5.2 % Normal 4.0-6.[address] [facility] Comment on above: Performed By: #### T SH ####[facility] , [place] 9112883 Lab Director: Matthew May MD#### GLYHGB, LIPR ####[facility] [place], [place] [phone] Director: David Arzate MD Lipaseon 04-03-2024 Lipase [Catalytic activity/Vol] 37 U/L Normal 13-[address] [facility] Comment on above: Performed By: #### L IP, CP, SAVITA, CDP #### [facility] [address] [place] [address] Box Maker: Matthew May MD #### CELP, ICADL #### [address] [address] [place], [place] [phone] Box Maker: David Arzate MD Thyroid Stim. Horm.on 2023 Thyroid Stim. Horm. 32.92 uIU/mL High 0.30-5.00 [facility] Comment on above: Performed By: #### T SH ####[facility] [place] [address] Lab Director: Matthew May MD#### GLYHGB, LIPR ####[address] [place], [place] [id number] Lab Director: David Arzate MD No Panel Informationon 02-17 Tobacco smoking status Former Tobacco User Inval id Interpretation Code [id number] XR CERVICAL SPINE (2-3 VIEWS )on 02-08-2024 XR CERVICAL SPINE (2-3 VIEWS) EXAMINATION: 4 XRAY VIEWS OF THE CERVICAL SPINE 02/07/2024 10:34 am COMPARISON: None. HISTORY: ORDERING SYSTEM PROVIDED HISTORY: Bilateral hand numbness TECHNOLOGIST PROVIDED HISTORY: neck pain, numbness FINDINGS: There is reversal of the normal cervical lordosis.. There is no fracture or bone erosion. There is no significant prevertebral soft tissue swelling. Disc spaces are preserved. IMPRESSION: Reversal of the cervical lordosis which may be from muscular spasm but otherwise unremarkable study. Interpreted by: Aj Mullins MD Signed by: Aj Mullins MD 02/08/[address] Final result Normal [facility] Acetaminophenon 12-13-2023 Acetaminophen [Mass/Vol] 9 ug/mL Low 10-[address] [facility] Comment on above: Performed By: #### F T4 #### [address] [address] Box Maker: David Arzate MD #### TSH #### [facility] [address] [place] [address] [place] [address] ( Box Maker: Matthew May MD CBC with Diffon 12-13-2023 Abs. Basophil 0.06 k/uL Normal 0.00-0.20 [facility] Comment on above: Performed By: #### F T4 #### [address] [address] Box Maker: David Arzate MD #### TSH #### [address] [place] [phone] ( Box Maker: Matthew May MD Abs.Imm.Granulocyte 0.06 k/uL Normal 0.00-0.[address] [facility] Comment on above: Performed By: #### F T4 #### [address] [address] Box Maker: David Arzate MD #### TSH #### [address] [place] [phone] ( Box Maker: Matthew May MD Abs.Neutrophil (Seg) 12.10 k/uL High 1.50-8.10 [facility] Comment on above: Performed By: #### F T4 #### [address] [address] Box Maker: David Arzate MD #### TSH #### [facility] [address] [place] [address] Dr. [place] [phone] Box Maker: Matthew May MD Basophils/100 WBC (Bld) 0 % Normal 0-2 M [facility] Comment on above: Performed By: #### F T4 #### [address] [address] Box Maker: David Arzate MD #### TSH #### [address] [place], [place] 6233483 Box Maker: Matthew May MD Eosinophils (Bld) [#/Vol] 0.20 10*3/uL Normal 0.00-0.[address] [facility] Comment on above: Performed By: #### F T4 #### [address] [address] Box Maker: David Arzate MD #### TSH #### [address] [place], [place] 4991583 Box Maker: Matthew May MD Eosinophils/100 WBC (Bld) 1 % Normal 1-[address] [facility] Comment on above: Performed By: #### F T4 #### [address] [address] Box Maker: David Arzate MD #### TSH #### [address] [place] [phone] Box Maker: Matthew May MD Erythrocyte distribution width (RBC) [Ratio] 14.5 % High 11.8-14.[address] [facility] Comment on above: Performed By: #### F T4 #### [address] [address] Box Maker: David Arzate MD #### TSH #### [address] [place] [phone] Box Maker: Matthew May MD Hematocrit (Bld) [Volume fraction] 40.4 % Normal 36.3-47.[address] [facility] Comment on above: Performed By: #### F T4 #### [address] [address] Box Maker: David Arzate MD #### TSH #### [address] [place] [phone] Box Maker: Matthew May MD Hemoglobin (Bld) [Mass/Vol] 13.2 g/dL Normal 11.9-15.[address] [facility] Comment on above: Performed By: #### F T4 #### [address] [place] [address] Box Maker: David Arzate MD #### TSH #### [address] [place] [phone] Box Maker: Matthew May MD Immature granulocytes/100 WBC (Bld) 0 % Normal [address] [facility] Comment on above: Performed By: #### F T4 #### [address] [address] Box Maker: David Arzate MD #### TSH #### [address] [place] [address] Box Maker: Matthew May MD Lymphocytes (Bld) [#/Vol] 2.93 10*3/uL Normal 1.10-3.[address] [facility] Comment on above: Performed By: #### F T4 #### [address] [address] Box Maker: David Arzate MD #### TSH #### [address] [place] [address] Box Maker: Matthew May MD Lymphocytes/100 WBC (Bld) 18 % Low 24-[address] [facility] Comment on above: Performed By: #### F T4 #### [address] [address] Box Maker: David Arzate MD #### TSH #### [address] [place] [phone] Box Maker: Matthew May MD MCH (RBC) [Entitic mass] 27.2 pg Normal 25.2-33.[address] [facility] Comment on above: Performed By: #### F T4 #### [address] [address] Box Maker: David Arzate MD #### TSH #### [facility] [address] [place] [address] Dr. [place], [place] [phone] Box Maker: Matthew May MD MCHC (RBC) [Mass/Vol] 32.7 g/dL Normal 28.4-34.8 [facility] Comment on above: Performed By: #### F T4 #### [address] [address] Box Maker: David Arzate MD #### TSH #### [facility] [address] [place] [address] Dr. [place] [phone] Box Maker: Matthew May MD MCV (RBC) [Entitic vol] 83.1 fL Normal 82.6-102.9 [facility] Comment on above: Performed By: #### F T4 #### [address] [address] Box Maker: David Arzate MD #### TSH #### [facility] [address] [place] [address] Dr. [place] [phone] Box Maker: Matthew May MD Monocytes (Bld) [#/Vol] 1.00 10*3/uL Normal 0.10-1.[address] [facility] Comment on above: Performed By: #### F T4 #### [address] [address] Box Maker: David Arzate MD #### TSH #### [facility] [address] [place] [address] Dr. [place], [place] [phone] Box Maker: Matthew May MD Monocytes/100 WBC (Bld) 6 % Normal 3-12 M [facility] Comment on above: Performed By: #### F T4 #### [address] [address] Box Maker: David Arzate MD #### TSH #### [facility] [address] [place] [address] Dr. [place], [place] 1834183 Box Maker: Matthew May MD Neutrophil (Seg) 75 % High 36-65 [facility] Comment on above: Performed By: #### F T4 #### [address] [address] Box Maker: David Arzate MD #### TSH #### [address] [place] [phone] Box Maker: Matthew May MD NRBC Automated 0.0 per 100 WBC Normal 0.[address] [facility] Comment on above: Performed By: #### F T4 #### [address] [address] Box Maker: David Arzate MD #### TSH #### [facility] [address] [place] [address] Dr. [place] [facility]83 Box Maker: Matthew May MD Platelet mean volume (Bld) [Entitic vol] 10.8 fL Normal 8.1-13.[address] [facility] Comment on above: Performed By: #### F T4 #### [address] [address] Box Maker: David Arzate MD #### TSH #### [facility] [address] [place] [address] Dr. [place] [facility]83 Box Maker: Matthew May MD Platelets (Bld) [#/Vol] 295 10*3/uL Normal 138-[address] [facility] Comment on above: Performed By: #### F T4 #### [address] [address] Box Maker: David Arzate MD #### TSH #### [facility] [address] [place], [place] 4928583 Box Maker: Matthew May MD RBC (Bld) [#/Vol] 4.86 10*6/uL Normal 3.95-5.[address] [facility] Comment on above: Performed By: #### F T4 #### [address] [address] Box Maker: David Arzate MD #### TSH #### [facility] [address] [place], [place] 2998583 Box Maker: Matthew May MD WBC (Bld) [#/Vol] 16.4 10*3/uL High 3.5-11.[address] [facility] Comment on above: Performed By: #### F T4 #### [address] [address] Box Maker: David Arzate MD #### TSH #### [facility] [address] [place], [place] [phone] Box Maker: Matthew May MD Comp Metabolic Profon 2023 Albumin [Mass/Vol] 3.8 g/dL Normal 3.5-5.[address] [facility] Comment on above: Performed By: #### F T4 #### [address] [address] Box Maker: David Arzate MD #### TSH #### [facility] [address] [place], [place] 1464783 Box Maker: Matthew May MD Albumin/Glob Ratio 1.0 Normal 1.0-2.[address] [facility] Comment on above: Performed By: #### F T4 #### [address] [address] Box Maker: David Arzate MD #### TSH #### [facility] [address] [place] [address] Box Maker: Matthew May MD Alkaline Phos 101 U/L Normal 35-104 [facility] Comment on above: Performed By: #### F T4 #### [facility] [address] [place] [address] Box Maker: David Arzate MD #### TSH #### [address] [place], [place] 6561483 Box Maker: Matthew May MD ALT [Catalytic activity/Vol] 7 U/L Normal 5-[address] [facility] Comment on above: Performed By: #### F T4 #### [id number] [place] [address] Box Maker: David Arzate MD #### TSH #### [address] [place], [place] [id number] Box Maker: Matthew May MD Anion gap [Moles/Vol] 13 mmol/L Normal 9-17 [facility] Comment on above: Performed By: #### F T4 #### [address] [address] Box Maker: David Arzate MD #### TSH #### [address] [place], [place] [id number] Box Maker: Matthew May MD AST [Catalytic activity/Vol] 13 U/L Normal <[address] [facility] Comment on above: Performed By: #### F T4 #### [address] [address] Box Maker: David Arzate MD #### TSH #### [address] [place] [address] Box Maker: Matthew May MD Bilirubin [Mass/Vol] 0.2 mg/dL Low 0.3-1.2 [facility] Comment on above: Performed By: #### F T4 #### [address] [place] [address] Box Maker: David Arzate MD #### TSH #### [facility] [address] [place], [place] [id number] Box Maker: Matthew May MD BUN/CRE Ratio 10 Normal 9-20 [facility] Comment on above: Performed By: #### F T4 #### [address] [address] Box Maker: David Arzate MD #### TSH #### [facility] [address] [place], [place] [id number] Box Maker: Matthew May MD Calcium [Mass/Vol] 9.3 mg/dL Normal 8.6-10.[address] [facility] Comment on above: Performed By: #### F T4 #### [address] [address] Box Maker: David Arzate MD #### TSH #### [facility] [address] [place], [place] [phone] Box Maker: Matthew May MD Chloride [Moles/Vol] 100 mmol/L Normal 98-107 [facility] Comment on above: Performed By: #### F T4 #### [address] [address] Box Maker: David Arzate MD #### TSH #### [facility] [address] [place], [place] [phone] Box Maker: Matthew May MD CO2 [Moles/Vol] 21 mmol/L Normal 20-31 [facility] Comment on above: Performed By: #### F T4 #### [address] [address] Box Maker: David Arzate MD #### TSH #### [facility] [address] [place] [address] [place] [address] Box Maker: Matthew May MD Creatinine [Mass/Vol] 0.9 mg/dL Normal 0.5-0.9 [facility] Comment on above: Performed By: #### F T4 #### [address] [address] Box Maker: David Arzate MD #### TSH #### [facility] [address] [place] [address] [place] [address] Box Maker: Matthew May MD GFR/1.73 sq M.predicted among non-blacks MDRD (S/P/Bld) [Vol rate/Area] mL/min/{1.73_m2} Normal >[address] [facility] Comment on above: Result Comment: These results are not intended for use in patients <18 years of age. eGFR results are calculated without a race factor using the 2020 CKD-EPI equation. Careful clinical correlation is recommended, particularly when comparing to results calculated using previous equations. The CKD-EPI equation is less accurate in patients with extremes of muscle mass, extra-renal metabolism of creatine, excessive creatine ingestion, or following therapy that affects renal tubular secretion. Performed By: #### F T4 #### [address] [address] Box Maker: David Arzate MD #### TSH #### [facility] [address] [place] [address] [place] [address] Box Maker: Matthew May MD Glucose [Mass/Vol] 88 mg/dL Normal 70-[address] [facility] Comment on above: Performed By: #### F T4 #### [address] [address] Box Maker: David Arzate MD #### TSH #### [facility] [address] [place] [address] [place] [address] Box Maker: Matthew May MD Potassium [Moles/Vol] 3.5 mmol/L Low 3.7-5.3 [facility] Comment on above: Performed By: #### F T4 #### [facility] [address] [place] [address] Box Maker: David Arzate MD #### TSH #### [facility] [address] [place] [address] Dr. [place], [place] [phone] Box Maker: Matthew May MD Protein [Mass/Vol] 7.6 g/dL Normal 6.4-8.[address] [facility] Comment on above: Performed By: #### F T4 #### [address] [address] Box Maker: David Arzate MD #### TSH #### [facility] [address] [place] [address] Dr. [place], [place] [phone] Box Maker: Matthew May MD Sodium [Moles/Vol] 134 mmol/L Low 135-[address] [facility] Comment on above: Performed By: #### F T4 #### [address] [address] Box Maker: David Arzate MD #### TSH #### [address] [place] [phone] Box Maker: Matthew May MD Urea nitrogen [Mass/Vol] 9 mg/dL Normal 6-[address] [facility] Comment on above: Performed By: #### F T4 #### [address] [address] Box Maker: David Arzate MD #### TSH #### [facility] [address] [place] [address] [place] [address] Box Maker: Matthew May MD Basic Metabolic Profon 07-12 Anion gap [Moles/Vol] 13 mmol/L Normal 9-17 [facility] Comment on above: Performed By: #### B MP #### [facility] [address] [place], [place] [phone] Box Maker: Matthew May MD BUN/CRE Ratio 16 Normal 9-20 [facility] Comment on above: Performed By: #### B MP #### [facility] [address] [place], [place] [phone] Box Maker: Matthew May MD Calcium [Mass/Vol] 9.7 mg/dL Normal 8.6-10.[address] [facility] Comment on above: Performed By: #### B MP #### [facility] [address] [place], [place] [phone] Box Maker: Matthew May MD Chloride [Moles/Vol] 103 mmol/L Normal 98-107 [facility] Comment on above: Performed By: #### B MP #### [facility] [address] [place], [place] [phone] Box Maker: Matthew May MD CO2 [Moles/Vol] 23 mmol/L Normal 20-31 [facility] Comment on above: Performed By: #### B MP #### [facility] [address] [place], [place] [phone] Box Maker: Matthew May MD Creatinine [Mass/Vol] 1.0 mg/dL High 0.5-0.9 [facility] Comment on above: Performed By: #### B MP #### [facility] [address] [place], [place] [phone] Box Maker: Matthew May MD GFR/1.73 sq M.predicted among non-blacks MDRD (S/P/Bld) [Vol rate/Area] mL/min/{1.73_m2} Normal >[address] [facility] Comment on above: Result Comment: These results are not intended for use in patients <18 years of age. eGFR results are calculated without a race factor using the 2020 CKD-EPI equation. Careful clinical correlation is recommended, particularly when comparing to results calculated using previous equations. The CKD-EPI equation is less accurate in patients with extremes of muscle mass, extra-renal metabolism of creatine, excessive creatine ingestion, or following therapy that affects renal tubular secretion. Performed By: #### B MP #### [facility] [address] [place] [address] Dr. [place], [place] [phone] Box Maker: Matthew May MD Glucose [Mass/Vol] 96 mg/dL Normal 70-[address] [facility] Comment on above: Performed By: #### B MP #### [address] [place] [phone] Box Maker: Matthew May MD Potassium [Moles/Vol] 3.8 mmol/L Normal 3.7-5.3 [facility] Comment on above: Performed By: #### B MP #### [address] [place], [place] [phone] Box Maker: Matthew May MD Sodium [Moles/Vol] 139 mmol/L Normal 135-[address] [facility] Comment on above: Performed By: #### B MP #### [address] [place], [place] [phone] Box Maker: Matthew May MD Urea nitrogen [Mass/Vol] 16 mg/dL Normal 6-[address] [facility] Comment on above: Performed By: #### B MP #### [address] [place], [place] [phone] Box Maker: Matthew May MD Lipid Profileon 07-12-2023 Cholesterol [Mass/Vol] 206 mg/dL High <200 [facility] Comment on above: Result Comment: Cholesterol Guidelines: <200 Desirable 200-240 Borderline >240 Undesirable Performed By: #### L IPR ####[address] [id number] Lab Director: David Arzate MD Cholesterol in HDL [Mass/Vol] 44 mg/dL Normal >[address] [facility] Comment on above: Result Comment: HDL Guidelines: <40 Undesirable 40-59 Borderline >59 Desirable Performed By: #### L IPR ####[address] [address])[phone] Director: David Arzate MD Cholesterol in LDL [Mass/Vol] 119 mg/dL Normal 0-[address] [facility] Comment on above: Result Comment: LDL Guidelines: <100 Desirable 100-129 Near to/above Desirable 130-159 Borderline >159 Undesirable Direct (measured) LDL and calculated LDL are not interchangeable tests. Performed By: #### L IPR ####[place], [place] [address])[phone] Director: David Arzate MD Cholesterol.total/Cholest deni in HDL [Mass ratio] 4.7 {ratio} Normal <5 [facility] Comment on above: Performed By: #### L IPR ####[place], [place] [address])[phone] Director: David Arzate MD Triglyceride [Mass/Vol] 215 mg/dL High <150 M [facility] Comment on above: Result Comment: Triglyceride Guidelines: <150 Desirable 150-199 Borderline 200-499 High >499 Very high Based on AHA Guidelines for fasting triglyceride, September 2012. Performed By: #### L IPR ####[place], [place] [address])[phone] Director: David Arzate MD Thyroid Stim. Horm.on 2022 Thyroid Stim. Horm. 24.04 uIU/mL High 0.30-5.00 [facility] Comment on above: Performed By: #### F T4 #### [address] [place] [address] Box Maker: David Arzate MD #### TSH #### [facility] [address] [place] [address] Box Maker: Matthew May MD Thyroxine, Freeon 07-12-2023 Thyroxine, Free 1.0 ng/dL Normal 0.9-1.7 [facility] Comment on above: Performed By: #### F T4 #### [facility] [address] [place] [address] Box Maker: David Arzate MD #### TSH #### [facility] [address] [place], [place] [phone] Box Maker: Matthew May MD PAP ACOG PANEL 2: 21 to 29on 09-11-2022 . . [facility] Comment on above: Performed By: #### E RUR #### [facility] [address] [place] [address] Dr. Berenice Collins Age Gdln ACOG Testing - [facility] Comment on above: Performed By: #### E RUR #### [facility] [address] [place] [address] Dr. Berenice Collins DIAGNOSIS: Comment [facility] Comment on above: Result Comment: NEGA TIVE FOR INTRAEPITHELIAL LESION OR MALIGNANCY. Performed By: #### E RUR #### [facility] [address] [place] [address] Dr. Berenice Collins Methodology: Comment [facility] Comment on above: Result Comment: This liquid based ThinPrep(R) pap test was screened with the use of an image guided system. Performed By: #### E RUR #### [facility] [address] [place] [address] Dr. Berenice Collins Note: Comment [facility] Comment on above: Result Comment: The Pap smear is a screening test designed to aid in the detection of premalignant and malignant conditions of the uterine cervix. It is not a diagnostic procedure and should not be used as the sole means of detecting cervical cancer. Both false-positive and false-negative reports do occur. . Performed By: #### E RUR #### [facility] [address] [place] [address] Dr. Berenice Collins Performed by: Comment [facility] Comment on above: Result Comment: Janell Whipple, Machine Fitter (ASCP) Performed By: #### E RUR #### [facility] [address] [place] [address] [address] [address] Berenice Collins Reflex Criteria: Comment Normal [facility] Comment on above: Result Comment: The HPV DNA reflex criteria were not met with this specimen result therefore, no HPV testing was performed. . Performed By: #### E RUR #### [facility] [address] [place], [place] [phone] Dr. Berenice Collins Specimen adequacy: Comment Normal [facility] Comment on above: Result Comment: Sati sfactory for evaluation. No endocervical component is identified. Performed By: #### E RUR #### [facility] [address] [place], [place] [id number] Dr. Berenice Collins DHEA SERUMon 06-06-2022 Dehydroepiandrosterone (DHEA) 267 ng/dL Normal 31-701 [facility] Comment on above: Result Comment: Age 1 - 5 years 0 - 67 6 - 7 years 0 - 110 8 - 10 years 0 - 185 11 - 12 years 0 - 201 13 - 14 years 0 - 318 15 - 16 years 39 - 481 17 - 19 years 40 - 491 >19 years 31 - 701 Performed By: #### [facility] #### [facility] [address] [place] [address] Dr. Berenice Collins US PELVIS AND TRANSVAGon US PELVIS AND TRANSVAG EXAMINATION: US PELVIS AND TRANSVAG HISTORY: Abnormal uterine bleeding unrelated to menstrual cycle COMPARISON: Ultrasound pelvis 04/17/2017 TECHNIQUE: Transabdominal and transvaginal sonographic examination. FINDINGS: UTERUS: Normal size and appearance. Uterus size: 9.5 x 4.9 x 6.5 cm ENDOMETRIUM: Abnormal thickened, but homogeneous echotexture. Endometrial thickness: 17 mm RIGHT OVARY: Normal size and appearance. Duplex Doppler demonstrates normal waveform and flow; resistive index 0.6. Ovary size: 4.4 x 2.2 x 3.3 cm LEFT OVARY: Normal size and appearance. Duplex Doppler demonstrates normal waveform and flow; resistive index 0.7. Ovary size: 2.8 x 2.0 x 2.1 cm CUL-DE-SAC: Unremarkable. No significant free fluid. BLADDER: Unremarkable. OTHER: None. IMPRESSION: 1. Thickened endometrium of uncertain etiology; endometrial hyperplasia? Electronically authenticated by: MICKEY LARA Date: 2022-06-05 17:26 Normal [facility] DHEA-SULFATEon 06-01-2022 DHEA-Sulfate 74.2 ug/dL Critically low 84.8-378.0 [facility] Comment on above: Performed By: #### D ABBY #### [facility] [address] [place] [address] Dr. Berenice Collins FSHon 06-01-2022 FSH 6.1 mIU/mL Normal [facility] Comment on above: Result Comment: Adul t Female: Follicular phase 3.5 - 12.5 Ovulation phase 4.7 - 21.5 Luteal phase 1.7 - 7.7 Postmenopausal 25.8 - 134.8 Performed By: #### C VDTBH #### [facility] [address] [place] [address] Dr. Berenice Collins LUTEINIZING HORMONE (LH)on 0 06-01-2022 LH 58.6 mIU/mL Normal [facility] Comment on above: Result Comment: Adul t Female: Follicular phase 2.4 - 12.6 Ovulation phase 14.0 - 95.6 Luteal phase 1.0 - 11.4 Postmenopausal 7.7 - 58.5 Performed By: #### L BCLAlmaz #### [facility] [address] [place] [address] Dr. Berenice Collins CBC AUTO DIFFon 05-31-2022 BASO # 0.0 103/ul Normal 0.0-0.1 [facility] Comment on above: Performed By: #### C VDTBAlmaz #### [facility] [address] [place] [address] Dr. Berenice Collins Basophils/100 WBC (Bld) 0.4 % Normal 0.2-2.0 [facility] Comment on above: Performed By: #### C VDTBH #### [facility] [address] [place] [address] Dr. Berenice Colilns EO # 0.1 103/ul Normal 0.0-0.7 [facility] Comment on above: Performed By: #### C VDTBH #### [facility] [address] [place] [address] Dr. Berenice Collins Eosinophils/100 WBC (Bld) 1.0 % Normal 0.9-7.0 [facility] Comment on above: Performed By: #### C VDTBH #### [facility] [address] [place] [address] Dr. Berenice Collins Erythrocyte distribution width (RBC) [Ratio] 14.6 % Normal 11.0-15.0 [facility] Comment on above: Performed By: #### C VDTBH #### [facility] [address] [place] [address] Dr. Berenice Collins Hematocrit (Bld) [Volume fraction] 37.2 % Normal 36.0-48.0 [facility] Comment on above: Performed By: #### C VDTBH #### [facility] [address] [place] [address] Dr. Berenice Collins Hemoglobin (Bld) [Mass/Vol] 12.2 g/dL Normal 12.0-16.0 [facility] Comment on above: Performed By: #### C VDTBH #### [facility] [address] [place] [address] Dr. Berenice Collins IG # 0.03 10e3/ul Normal 0.00-0.03 [facility] Comment on above: Performed By: #### C VDTBH #### [facility] [address] [place] [address] Dr. Berenice Collins IG % 0.3 % Normal 0.0-0.5 [facility] Comment on above: Performed By: #### C VDTBH #### [facility] [address] [place] [address] Dr. Berenice Collins LYMPH # 1.6 103/ul Normal 1.2-3.8 [facility] Comment on above: Performed By: #### C VDTBH #### [facility] [address] [place] [address] Dr. Berenice Collins Lymphocytes/100 WBC (Bld) 15.5 % Critically low 20.5-6 0.0 [facility] Comment on above: Performed By: #### C VDTBH #### [facility] [address] [place] [address] Dr. Berencie Collins MANUAL DIFF REQ NO Normal [facility] Comment on above: Performed By: #### C VDTBH #### [facility] [address] [place] [address] Dr. Berenice Collins MCH (RBC) [Entitic mass] 27.2 pg Normal 26.7-34.0 [facility] Comment on above: Performed By: #### C VDTBH #### [facility] [address] [place] [address] Dr. Berenice Collins MCHC (RBC) [Mass/Vol] 32.8 g/dL Normal 29.9-35.2 [facility] Comment on above: Performed By: #### C VDTBH #### [facility] [address] [place] [address] Dr. Berenice Collins MCV (RBC) [Entitic vol] 83.0 fL Normal 81.0-99.0 [facility] Comment on above: Performed By: #### C VDTBH #### [facility] [address] [place] [address] Dr. Berenice Collins MONO # 0.6 103/ul Normal 0.3-0.8 [facility] Comment on above: Performed By: #### C VDTBH #### [facility] [address] [place] [address] Dr. Berenice Collins Monocytes/100 WBC (Bld) 6.2 % Normal 1.7-12.0 [facility] Comment on above: Performed By: #### C VDTBH #### [facility] [address] [place] [address] Dr. Berenice Collins NEUT # 7.9 103/ul Critically high 1.4-6.5 [facility] Comment on above: Performed By: #### C VDTBH #### [facility] [address] [place] [address] Dr. Berenice Collins Neutrophils/100 WBC (Bld) 76.6 % Critically high 43.0- 75.0 [facility] Comment on above: Performed By: #### C VDTBH #### [facility] [address] [place] [address] Dr. Berenice Collins Platelet mean volume (Bld) [Entitic vol] 11.2 fL Normal 9.5-13.5 [facility] Comment on above: Performed By: #### C VDTBH #### [facility] [address] [place] [address] Dr. Berenice Collins PLT 288 103/ul Normal 150-450 [facility] Comment on above: Performed By: #### C VDTBH #### [facility] [address] [place] [address] Dr. Berenice Collins RBC 4.48 106/ul Normal 4.20-5.40 [facility] Comment on above: Performed By: #### C VDTBH #### [facility] [address] [place] [address] Dr. Berenice Collins WBC 10.4 103/ul Normal 4.0-11.0 [facility] Comment on above: Performed By: #### C VDTBH #### [facility] [address] [place] [address] Dr. Berenice Collins FREE T4on 05-31-2022 Free T4 [Mass/Vol] 0.81 ng/dL Normal 0.76-1.46 [facility] Comment on above: Performed By: #### F T4 #### [facility] [address] [place] [address] Dr. Berenice Collins GLYCOHEMOGLOBIN A1Con 2021 ADA RECOMMENDATION SEE BELOW Normal [facility] Comment on above: Result Comment: ADA RECOMMENDED LIMIT 4.0 - 6.0 ADA THERAPEUTIC TARGET < 7.0 ACTION SUGGESTED > 7.0 Performed By: #### A 1C #### [facility] [address] [place] [address] Dr. Berenice Collins Glucose [Mass/Vol] 114 mg/dL Normal [facility] Comment on above: Performed By: #### A 1C #### [facility] [address] [place] [address] Dr. Berenice Collins HbA1c (Bld) [Mass fraction] 5.6 % Normal 4.5-6.2 [facility] Comment on above: Performed By: #### A 1C #### [facility] [address] [place] [address] Dr. Berenice Collins TSHon 05-31-2022 TSH 39.549 uIU/mL Critically high 0.358-3.740 [facility] Comment on above: Performed By: #### E RUR #### [facility] [address] [place] [address] Dr. Berenice Collins CBC AUTO DIFFon 11-09-2021 BASO # 0.0 103/ul Normal 0.0-0.1 [facility] Comment on above: Performed By: #### E RUR #### [facility] [address] [place] [address] Dr. Berenice Collins Basophils/100 WBC (Bld) 0.3 % Normal 0.2-2.0 [facility] Comment on above: Performed By: #### E RUR #### [facility] [address] [place] [address] Dr. Berenice Collins EO # 0.3 103/ul Normal 0.0-0.7 [facility] Comment on above: Performed By: #### E RUR #### [facility] [address] [place] [address] Dr. Berenice Collins Eosinophils/100 WBC (Bld) 2.7 % Normal 0.9-7.0 [facility] Comment on above: Performed By: #### E RUR #### [facility] [address] [place] [address] Dr. Berenice Collins Erythrocyte distribution width (RBC) [Ratio] 13.6 % Normal 11.0-15.0 [facility] Comment on above: Performed By: #### E RUR #### [facility] [address] [place] [address] Dr. Berenice Collins Hematocrit (Bld) [Volume fraction] 30.0 % Critically low 36.0-48.0 [facility] Comment on above: Performed By: #### E RUR #### [facility] [address] [place] [address] Dr. Berenice Collins Hemoglobin (Bld) [Mass/Vol] 9.8 g/dL Critically low 12.0-16.0 [facility] Comment on above: Performed By: #### E RUR #### [facility] [address] [place] [address] Dr. Berenice Collins IG # 0.03 10e3/ul Normal 0.00-0.03 [facility] Comment on above: Performed By: #### E RUR #### [facility] [address] [place] [address] Dr. Berenice Collins IG % 0.3 % Normal 0.0-0.5 [facility] Comment on above: Performed By: #### E RUR #### [facility] [address] [place] [address] Dr. Berenice Collins LYMPH # 2.1 103/ul Normal 1.2-3.8 [facility] Comment on above: Performed By: #### E RUR #### [facility] [address] [place] [address] Dr. Berenice Collins Lymphocytes/100 WBC (Bld) 21.2 % Normal 20.5-60.0 [facility] Comment on above: Performed By: #### E RUR #### [facility] [address] [place] [address] Dr. Berenice Collins MANUAL DIFF REQ NO Normal [facility] Comment on above: Performed By: #### E RUR #### [facility] [address] [place] [address] Dr. Berenice Collins MCH (RBC) [Entitic mass] 29.5 pg Normal 26.7-34.0 [facility] Comment on above: Performed By: #### E RUR #### [facility] [address] [place] [address] Dr. Berenice Collins MCHC (RBC) [Mass/Vol] 32.7 g/dL Normal 29.9-35.2 [facility] Comment on above: Performed By: #### E RUR #### [facility] [address] [place] [address] Dr. Berenice Collins MCV (RBC) [Entitic vol] 90.4 fL Normal 81.0-99.0 [facility] Comment on above: Performed By: #### E RUR #### [facility] [address] [place] [address] Dr. Berenice Collins MONO # 0.7 103/ul Normal 0.3-0.8 [facility] Comment on above: Performed By: #### E RUR #### [facility] [address] [place] [address] Dr. Berenice Collins Monocytes/100 WBC (Bld) 6.6 % Normal 1.7-12.0 [facility] Comment on above: Performed By: #### E RUR #### [facility] [address] [place] [address] Dr. Berenice Collins NEUT # 6.8 103/ul Critically high 1.4-6.5 [facility] Comment on above: Performed By: #### E RUR #### [facility] [address] [place] [address] Dr. Berenice Collins Neutrophils/100 WBC (Bld) 68.9 % Normal 43.0-75.0 [facility] Comment on above: Performed By: #### E RUR #### [facility] [address] [place] [address] Dr. Berenice Collins Platelet mean volume (Bld) [Entitic vol] 11.4 fL Normal 9.5-13.5 [facility] Comment on above: Performed By: #### E RUR #### [facility] [address] [place] [address] Dr. Berenice Collins PLT 203 103/ul Normal 150-450 [facility] Comment on above: Performed By: #### E RUR #### [facility] [address] [place] [address] Dr. Berenice Collins RBC 3.32 106/ul Critically low 4.20-5.40 [facility] Comment on above: Performed By: #### E RUR #### [facility] [address] [place] [address] Dr. Berenice Collins WBC 9.9 103/ul Normal 4.0-11.0 [facility] Comment on above: Performed By: #### E RUR #### [facility] [address] [place] [address] Dr. Berenice Collins CBC AUTO DIFFon 11-08-2021 BASO # 0.0 103/ul Normal 0.0-0.1 [facility] Comment on above: Performed By: #### C VDTBH #### [facility] [address] [place] [address] Dr. Berenice Collins Basophils/100 WBC (Bld) 0.4 % Normal 0.2-2.0 [facility] Comment on above: Performed By: #### C VDTBH #### [facility] [address] [place] [address] Dr. Berenice Collins EO # 0.1 103/ul Normal 0.0-0.7 [facility] Comment on above: Performed By: #### C VDTBH #### [facility] [address] [place] [address] Dr. Berenice Collins Eosinophils/100 WBC (Bld) 1.3 % Normal 0.9-7.0 [facility] Comment on above: Performed By: #### C VDTBH #### [facility] [address] [place] [address] Dr. Berenice Collins Erythrocyte distribution width (RBC) [Ratio] 13.3 % Normal 11.0-15.0 [facility] Comment on above: Performed By: #### C VDTBH #### [facility] [address] [place] [address] Dr. Berenice Collins Hematocrit (Bld) [Volume fraction] 32.6 % Critically low 36.0-48.0 [facility] Comment on above: Performed By: #### C VDTBH #### [facility] [address] [place] [address] Dr. Berenice Collins Hemoglobin (Bld) [Mass/Vol] 10.8 g/dL Critically low 12.0-16.0 [facility] Comment on above: Performed By: #### C VDTBH #### [facility] [address] [place] [address] Dr. Berenice Collins IG # 0.05 10e3/ul Critically high 0.00-0.03 [facility] Comment on above: Performed By: #### C VDTBH #### [facility] [address] [place] [address] Dr. Berenice Collins IG % 0.5 % Normal 0.0-0.5 [facility] Comment on above: Performed By: #### C VDTBH #### [facility] [address] [place] [address] Dr. Berenice Collins LYMPH # 2.0 103/ul Normal 1.2-3.8 [facility] Comment on above: Performed By: #### C VDTBH #### [facility] [address] [place] [address] Dr. Berenice Collins Lymphocytes/100 WBC (Bld) 19.5 % Critically low 20.5-6 0.0 [facility] Comment on above: Performed By: #### C VDTBH #### [facility] [address] [place] [address] Dr. Berenice Collins MANUAL DIFF REQ NO Normal [facility] Comment on above: Performed By: #### C VDTBH #### [facility] [address] [place] [address] Dr. Berenice Collins MCH (RBC) [Entitic mass] 29.3 pg Normal 26.7-34.0 [facility] Comment on above: Performed By: #### C VDTBH #### [facility] [address] [place] [address] Dr. Berenice Collins MCHC (RBC) [Mass/Vol] 33.1 g/dL Normal 29.9-35.2 [facility] Comment on above: Performed By: #### C VDTBH #### [facility] [address] [place] [address] Dr. Berenice Collins MCV (RBC) [Entitic vol] 88.6 fL Normal 81.0-99.0 [facility] Comment on above: Performed By: #### C VDTBH #### [facility] [address] [place] [address] Dr. Berenice Collins MONO # 0.7 103/ul Normal 0.3-0.8 [facility] Comment on above: Performed By: #### C VDTBH #### [facility] [address] [place] [address] Dr. Berenice Collins Monocytes/100 WBC (Bld) 6.9 % Normal 1.7-12.0 [facility] Comment on above: Performed By: #### C VDTBH #### [facility] [address] [place] [address] Dr. Berenice Collins NEUT # 7.3 103/ul Critically high 1.4-6.5 [facility] Comment on above: Performed By: #### C VDTBH #### [facility] [address] [place] [address] Dr. Berenice Collins Neutrophils/100 WBC (Bld) 71.4 % Normal 43.0-75.0 [facility] Comment on above: Performed By: #### C VDTBH #### [facility] [address] [place] [address] Dr. Berenice Collins Platelet mean volume (Bld) [Entitic vol] 12.2 fL Normal 9.5-13.5 [facility] Comment on above: Performed By: #### C VDTBH #### [facility] [address] [place] [address] Dr. Berenice Collins PLT 247 103/ul Normal 150-450 [facility] Comment on above: Performed By: #### C VDTBH #### [facility] [address] [place] [address] Dr. Berenice Collins RBC 3.68 106/ul Critically low 4.20-5.40 [facility] Comment on above: Performed By: #### C VDTBH #### [facility] [address] [place] [address] Dr. Berenice Collins WBC 10.3 103/ul Normal 4.0-11.0 [facility] Comment on above: Performed By: #### C VDTBH #### [facility] [address] [place] [address] Dr. Berenice Collins CULTURE URINEon 11-08-2021 CULTURE URINE Culture Observations: VERY LIGHT GROWTH OF MIXED GENITAL LEVON. NO POTENTIAL PATHOGENS SEEN. Normal [facility] Comment on above: Performed By: #### E RUR #### [facility] [address] [place] [address] Dr. Berenice Collins DRUG SCREEN RAPID (URINE)on 11-08-2021 AMP Negative Normal NEGATIVE [facility] Comment on above: Performed By: #### D RUGRPD #### [facility] [address] [place] [address] Dr. Berenice Collins BAR Negative Normal NEGATIVE [facility] Comment on above: Performed By: #### D RUGRPD #### [facility] [address] [place] [address] Dr. Berenice Collins BUP Negative Normal NEGATIVE [facility] Comment on above: Performed By: #### D RUGRPD #### [facility] [address] [place] [address] Dr. Berenice Collins BZO Negative Normal NEGATIVE [facility] Comment on above: Performed By: #### D RUGRPD #### [facility] [address] [place] [address] Dr. Berenice Collins JYOTI Negative Normal NEGATIVE [facility] Comment on above: Performed By: #### D RUGRPD #### [facility] [address] [place] [address] Dr. Berenice Collins CUT-OFFS SEE BELOW Normal [facility] Comment on above: Result Comment: AMP (Amphetamine): 500ng/mL, BAR (Barbituates): 200 ng/mL, BZO (Benzodiazepines): 150 ng/mL, BUP (Buprenorphine): 10 ng/mL, JYOTI (Cocaine): 150 ng/mL, mAMP (Methamphetamine): 500 ng/mL, MTD (Methadone): 200 ng/mL, OPI (Opiates): 100 ng/mL, OXY (Oxycodone): 100 ng/mL, PCP (Phencyclidine): 25 ng/mL, PPX (Propoxyphene): 300 ng/mL, THC (Cannabinoids): 50 ng/mL, TCA (Trycyclic Antidepressants): 300 ng/mL Performed By: #### D RUGRPD #### [facility] [address] [place] [address] Dr. Berenice Collins DRUG CUT HEADER DRUG CLASS TEST SYSTEM CUT-OFF CONCENTRATIONS ARE FOLLOWS: Normal [facility] Comment on above: Performed By: #### D RUGRPD #### [facility] [address] [place] [address] Dr. Berenice Collins mAMP Negative Normal NEGATIVE [facility] Comment on above: Performed By: #### D RUGRPD #### [facility] [address] [place] [address] Dr. Berenice Collins MTD Negative Normal NEGATIVE [facility] Comment on above: Performed By: #### D RUGRPD #### [facility] [address] [place] [address] Dr. Berenice Collins OPI Negative Normal NEGATIVE [facility] Comment on above: Performed By: #### D RUGRPD #### [facility] [address] [place] [address] Dr. Berenice Collins OXY Negative Normal NEGATIVE [facility] Comment on above: Performed By: #### D RUGRPD #### [facility] [address] [place] [address] Dr. Berenice Collins PCP Negative Normal NEGATIVE [facility] Comment on above: Performed By: #### D RUGRPD #### [facility] [address] [place] [address] Dr. Berenice Collins PPX Negative Normal NEGATIVE [facility] Comment on above: Performed By: #### D RUGRPD #### [facility] [address] [place] [address] Dr. Berenice Collins TCA Negative Normal NEGATIVE [facility] Comment on above: Performed By: #### D RUGRPD #### [facility] [address] [place] [address] Dr. Berenice Collins THC Negative Normal NEGATIVE [facility] Comment on above: Performed By: #### D RUGRPD #### [facility] [address] [place] [address] Dr. Berenice Collins TYPE AND SCREENon 11-08-2021 TYPE AND SCREEN Negative Normal [facility] Comment on above: Performed By: #### E RUR #### [facility] [address] [place] [address] Dr. Berenice Collins UA (CLEAN/CATCH) GLUE MILL OPERATOR/MICRO I F IND.on 11-08-2021 Bilirubin Ql (U) Negative Normal NEGATIVE [facility] Comment on above: Performed By: #### U ACSIND, UMICRO #### [facility] [address] [place] [address] Dr. Berenice Collins Clarity (U) SL CLOUDY Abnormal CLEAR [facility] Comment on above: Performed By: #### U ACSIND, UMICRO #### [facility] [address] [place] [address] Dr. Berenice Collins Color (U) YELLOW Normal YELLOW [facility] Comment on above: Performed By: #### U ACSIND, UMICRO #### [facility] [address] [place] [address] Dr. Berenice Collins Glucose Ql (U) Negative Normal NEGATIVE [facility] Comment on above: Performed By: #### U ACSIND, UMICRO #### [facility] [address] [place] [address] Dr. Berenice Collins Hemoglobin Ql (U) Negative Normal NEGATIVE [facility] Comment on above: Performed By: #### U ACSIND, UMICRO #### [facility] [address] [place] [address] Dr. Berenice Collins Ketones Ql (U) Negative Normal NEGATIVE [facility] Comment on above: Performed By: #### U ACSIND, UMICRO #### [facility] [address] [place] [address] Dr. Berenice Collins LEUKOCYTES TRACE Abnormal NEGATIVE [facility] Comment on above: Performed By: #### U ACSIND, UMICRO #### [facility] [address] [place] [address] Dr. Berenice Collins Nitrite Ql (U) Negative Normal NEGATIVE [facility] Comment on above: Performed By: #### U ACSIND, UMICRO #### [facility] [address] [place] [address] Dr. Berenice Collins pH (U) 5.0 [pH] Normal 5-9 [facility] Comment on above: Performed By: #### U ACSIND, UMICRO #### [facility] [address] [place] [address] Dr. Berenice Collins SPEC GRAVITY >=1.030 Abnormal 1.005-<=1.0 25 [facility] Comment on above: Performed By: #### U ACSLORENZO, UMICRO #### [facility] [address] [place] [address] Dr. Berenice Collins UA PROTEIN Negative Normal NEGATIVE/ TRACE [facility] Comment on above: Performed By: #### U ACSLORENZO, UMICRO #### [facility] [address] [place] [address] Dr. Berenice Collins UR MICRO IND INDICATED Normal [facility] Comment on above: Performed By: #### U ACSLORENZO, UMICRO #### [facility] [address] [place] [address] Dr. Berenice Collins Urobilinogen Qn (U) 0.2 {Ana'U}/dL Normal 0.2 - 1. 0 [facility] Comment on above: Performed By: #### U ACSLORENZO, UMICRO #### [facility] [address] [place] [address] Dr. Berenice Collins URINE MICROSCOPIC ONLYon BACTERIA MODERATE Abnormal NONE SEEN [facility] Comment on above: Performed By: #### U ACSIND, UMICRO #### [facility] [address] [place] [address] Dr. Berenice Collins Bacteria identified Cx Nom (U) INDICATED Normal [facility] Comment on above: Performed By: #### U ACSLORENZO, UMICRO #### [facility] [address] [place] [address] Dr. Berenice Collins CAST NONE SEEN Normal NONE SEEN [facility] Comment on above: Performed By: #### U ACSLORENZO, UMICRO #### [facility] [address] [place] [address] Dr. Berenice Collins Crystals LM Nom (Urine sed) NONE SEEN Normal NONE SEEN [facility] Comment on above: Performed By: #### U ACSLORENZO, UMICRO #### [facility] [address] [place] [address] Dr. Berenice Collins Epithelial cells LM Ql (Urine sed) MANY Abnormal NONE SEEN /RARE [facility] Comment on above: Performed By: #### U ACSLORENZO, UMICRO #### [facility] [address] [place] [address] Dr. Berenice Collins MUCOUS TRACE Abnormal NONE SEEN [facility] Comment on above: Performed By: #### U SOY, UMICRO #### [facility] [address] [place] [address] Dr. Berenice Collins RBC 0-2 Normal 0-2 [facility] Comment on above: Performed By: #### U SOY UMICRO #### [facility] [address] [place] [address] Dr. Berenice Collins WBC 10-20 Abnormal NONE SEEN [facility] Comment on above: Performed By: #### U SOY UMICRO #### [facility] [address] [place] [address] Dr. Berenice Collins Covid-19 PCR (CVDTB)on SARS-CoV-2 (COVID-19) RNA AGUSTIN+probe Ql (Unsp spec) Not detected Normal NOT DETECTED [facility] Comment on above: Result Comment: This test is not yet approved or cleared by the [place] FDA. When there are no FDA-approved or cleared tests available, and other criteria are met, FDA can make tests available under an emergency access mechanism called an Emergency Use Authorization (EUA). The EUA for this test is supported by the Office Clinician of Health and Human Service's (HHS's) declaration that circumstances exist to justify the emergency use of in vitro diagnostics for the detection and/or diagnosis of the virus that causes COVID-19. This EUA will remain in effect (meaning this test can be used) for the duration of the COVID-19 declaration justifying emergency of IVDs, unless it is terminated or revoked by FDA (after which the test may no longer be used). When diagnostic testing is negative, the possibility of a false negative should be considered in the context of a patient's recent exposures and the presence of clinical signs and symptoms consistent with SARS-CoV-2. Performed By: #### C VDTBH #### [facility] [address] [place] [address] Dr. Berenice Collins CHLAMYDIA/GONOCOCCUS AGUSTIN ( AB/URINE/PAPon 10-28-2021 Chlamydia trachomatis, AGUSTIN Negative Normal Negative [facility] Comment on above: Performed By: #### E RUR #### [facility] [address] [place] [address] Dr. Berenice Collins Neisseria gonorrhoeae, AGUSTIN Negative Normal Negative [facility] Comment on above: Performed By: #### E RUR #### [facility] [address] [place] [address] Dr. Berenice Collins DRUG SCREEN RAPID (URINE)on 10-24-2021 AMP Negative Normal NEGATIVE [facility] Comment on above: Performed By: #### C VDTBH #### [facility] [address] [place] [address] Dr. Berenice Collins BAR Negative Normal NEGATIVE [facility] Comment on above: Performed By: #### C VDTBH #### [facility] [address] [place] [address] Dr. Berenice Collins BUP Negative Normal NEGATIVE [facility] Comment on above: Performed By: #### C VDTBH #### [facility] [address] [place] [address] Dr. Berenice Collins BZO Negative Normal NEGATIVE [facility] Comment on above: Performed By: #### C VDTBH #### [facility] [address] [place] [address] Dr. Berenice Collins JYOTI Negative Normal NEGATIVE [facility] Comment on above: Performed By: #### C VDTBH #### [facility] [address] [place] [address] Dr. Berenice Collins CUT-OFFS SEE BELOW Normal [facility] Comment on above: Result Comment: AMP (Amphetamine): 500ng/mL, BAR (Barbituates): 200 ng/mL, BZO (Benzodiazepines): 150 ng/mL, BUP (Buprenorphine): 10 ng/mL, JYOTI (Cocaine): 150 ng/mL, mAMP (Methamphetamine): 500 ng/mL, MTD (Methadone): 200 ng/mL, OPI (Opiates): 100 ng/mL, OXY (Oxycodone): 100 ng/mL, PCP (Phencyclidine): 25 ng/mL, PPX (Propoxyphene): 300 ng/mL, THC (Cannabinoids): 50 ng/mL, TCA (Trycyclic Antidepressants): 300 ng/mL Performed By: #### C VDTBH #### [facility] [address] [place] [address] Dr. Berenice Collins DRUG CUT HEADER DRUG CLASS TEST SYSTEM CUT-OFF CONCENTRATIONS ARE FOLLOWS: Normal [facility] Comment on above: Performed By: #### C VDTBH #### [facility] [address] [place] [address] Dr. Berenice Collins mAMP Negative Normal NEGATIVE [facility] Comment on above: Performed By: #### C VDTBH #### [facility] [address] [place] [address] Dr. Berenice Collins MTD Negative Normal NEGATIVE [facility] Comment on above: Performed By: #### C VDTBH #### [facility] [address] [place] [address] Dr. Berenice Collins OPI Negative Normal NEGATIVE [facility] Comment on above: Performed By: #### C VDTBH #### [facility] [address] [place] [address] Dr. Berenice Collins OXY Negative Normal NEGATIVE [facility] Comment on above: Performed By: #### C VDTBH #### [facility] [address] [place] [address] Dr. Berenice Collins PCP Negative Normal NEGATIVE [facility] Comment on above: Performed By: #### C VDTBH #### [facility] [address] [place] [address] Dr. Berenice Collins PPX Negative Normal NEGATIVE [facility] Comment on above: Performed By: #### C VDTBH #### [facility] [address] [place] [address] Dr. Berenice Collins TCA Negative Normal NEGATIVE [facility] Comment on above: Performed By: #### C VDTBH #### [facility] [address] [place] [address] Dr. Berenice Collins THC Negative Normal NEGATIVE [facility] Comment on above: Performed By: #### C VDTBH #### [facility] [address] [place] [address] Dr. Berenice Collins GROUP B STREP CULTUREon 10-03 S. agalactiae Ag Ql (Unsp spec) Culture Observations: NEGATIVE FOR GROUP B STREPTOCOCCUS. Normal [facility] Comment on above: Performed By: #### E RUR #### [facility] [address] [place] [address] Dr. Berenice Collins CBC AUTO DIFFon 10-03-2021 BASO # 0.0 103/ul Normal 0.0-0.1 [facility] Comment on above: Performed By: #### C VDTBH #### [facility] [address] [place] [address] Dr. Berenice Collins Basophils/100 WBC (Bld) 0.0 % Critically low 0.2-2.0 [facility] Comment on above: Performed By: #### C VDTBH #### [facility] [address] [place] [address] Dr. Berenice Collins EO # 0.0 103/ul Normal 0.0-0.7 [facility] Comment on above: Performed By: #### C VDTBH #### [facility] [address] [place] [address] Dr. Berenice Collins Eosinophils/100 WBC (Bld) 0.2 % Critically low 0.9-7. 0 [facility] Comment on above: Performed By: #### C VDTBH #### [facility] [address] [place] [address] Dr. Berenice Collins Erythrocyte distribution width (RBC) [Ratio] 13.2 % Normal 11.0-15.0 [facility] Comment on above: Performed By: #### C VDTBH #### [facility] [address] [place] [address] Dr. Berenice Collins Hematocrit (Bld) [Volume fraction] 34.1 % Critically low 36.0-48.0 [facility] Comment on above: Performed By: #### C VDTBH #### [facility] [address] [place] [address] Dr. Berenice Collins Hemoglobin (Bld) [Mass/Vol] 11.5 g/dL Critically low 12.0-16.0 [facility] Comment on above: Performed By: #### C VDTBH #### [facility] [address] [place] [address] Dr. Berenice Collins IG # 0.02 10e3/ul Normal 0.00-0.03 [facility] Comment on above: Performed By: #### C VDTBH #### [facility] [address] [place] [address] Dr. Berenice Collins IG % 0.4 % Normal 0.0-0.5 [facility] Comment on above: Performed By: #### C VDTBH #### [facility] [address] [place] [address] Dr. Berenice Collins LYMPH # 1.1 103/ul Critically low 1.2-3.8 [facility] Comment on above: Performed By: #### C VDTBH #### [facility] [address] [place] [address] Dr. Berenice Collins Lymphocytes/100 WBC (Bld) 20.1 % Critically low 20.5-6 0.0 [facility] Comment on above: Performed By: #### C VDTBH #### [facility] [address] [place] [address] Dr. Berenice Collins MANUAL DIFF REQ NO Normal [facility] Comment on above: Performed By: #### C VDTBH #### [facility] [address] [place] [address] Dr. Berenice Collins MCH (RBC) [Entitic mass] 29.5 pg Normal 26.7-34.0 [facility] Comment on above: Performed By: #### C VDTBH #### [facility] [address] [place] [address] Dr. Berenice Collins MCHC (RBC) [Mass/Vol] 33.7 g/dL Normal 29.9-35.2 [facility] Comment on above: Performed By: #### C VDTBH #### [facility] [address] [place] [address] Dr. Berenice Collins MCV (RBC) [Entitic vol] 87.4 fL Normal 81.0-99.0 [facility] Comment on above: Performed By: #### C VDTBH #### [facility] [address] [place] [address] Dr. Berenice Collins MONO # 0.3 103/ul Normal 0.3-0.8 [facility] Comment on above: Performed By: #### C VDTBH #### [facility] [address] [place] [address] Dr. Berenice Collins Monocytes/100 WBC (Bld) 6.0 % Normal 1.7-12.0 [facility] Comment on above: Performed By: #### C VDTBH #### [facility] [address] [place] [address] Dr. Berenice Collins NEUT # 4.1 103/ul Normal 1.4-6.5 [facility] Comment on above: Performed By: #### C VDTBH #### [facility] [address] [place] [address] Dr. Berenice Collins Neutrophils/100 WBC (Bld) 73.3 % Normal 43.0-75.0 [facility] Comment on above: Performed By: #### C VDTBH #### [facility] [address] [place] [address] Dr. Berenice Collins Platelet mean volume (Bld) [Entitic vol] 11.8 fL Normal 9.5-13.5 [facility] Comment on above: Performed By: #### C VDTBH #### [facility] [address] [address] [address] Berenice Collins PLT 169 103/ul Normal 150-450 [facility] Comment on above: Performed By: #### C VDTBH #### [facility] [address] [address] [address] Berenice Collins RBC 3.90 106/ul Critically low 4.20-5.40 [facility] Comment on above: Performed By: #### C VDTBH #### [facility] [address] [address] [address] Berenice Collins WBC 5.5 103/ul Normal 4.0-11.0 [facility] Comment on above: Performed By: #### C VDTBH #### [facility] [address] [place] [address] Dr. Berenice Collins CTA CHEST WO W CONon 021 CTA CHEST WO W CON EXAMINATION: CTA CHEST WO W CON HISTORY: Shortness of breath . History of Covid infection. . COMPARISON: None. TECHNIQUE: CT angiography of the pulmonary arteries following the administration of intravenous contrast. Coronal and sagittal MIP (maximum intensity projection) images were performed. Dose reduction techniques were achieved by using automated exposure control and/or adjustment of mA and/or kV according to patient size and/or use of iterative reconstruction technique. FINDINGS: Overall suboptimal enhancement of the pulmonary arteries secondary to timing issues. Due to the patient's status, reinjection was not performed. No central pulmonary arterial emboli are present. There is suboptimal assessment of the segmental and subsegmental branches bilaterally secondary to a combination of suboptimal enhancement and respiratory motion artifact. Trace layering bilateral pleural effusions are present. There are extensive bilateral multilobar, multifocal pulmonary ground glass opacities consistent with Covid pneumonia. IMPRESSION: 1. Suboptimal assessment of the segmental and subsegmental pulmonary arteries secondary to a combination of motion artifact and suboptimal enhancement of the pulmonary arteries. No central pulmonary arterial emboli. 2. Bilateral multilobar, multifocal groundglass pulmonary opacities are present consistent with Covid infection. 3. Trace bilateral pleural effusions. Electronically authenticated by: ANNE-MARIE JOSEPH Date: 2021-10-03 20:02 Normal [facility] URINE PROFILEon 1 Bilirubin Ql (U) Negative Normal NEGATIVE [facility] Comment on above: Performed By: #### E RUR #### [facility] [address] [place] [address] Dr. Berenice Collins Clarity (U) CLEAR Normal CLEAR [facility] Comment on above: Performed By: #### E RUR #### [facility] [address] [place] [address] Dr. Berenice Collins Color (U) DK. YELLOW Normal YELLOW [facility] Comment on above: Performed By: #### E RUR #### [facility] [address] [place] [address] Dr. Berenice BERRIOS A micrscopic examination will be performed if indicated. Normal [facility] Comment on above: Performed By: #### E RUR #### [facility] [address] [place] [address] Dr. Berenice Collins Glucose Ql (U) Negative Normal NEGATIVE [facility] Comment on above: Performed By: #### E RUR #### [facility] [address] [place] [address] Dr. Berenice Collins Hemoglobin Ql (U) Negative Normal NEGATIVE [facility] Comment on above: Performed By: #### E RUR #### [facility] [address] [place] [address] Dr. Berenice Collins Ketones Ql (U) 15 mg/dl Abnormal NEGATIVE [facility] Comment on above: Performed By: #### E RUR #### [facility] [address] [place] [address] Dr. Berenice Collins LEUKOCYTES Negative Normal NEGATIVE [facility] Comment on above: Performed By: #### E RUR #### [facility] [address] [place] [address] Dr. Berenice Collins Nitrite Ql (U) Negative Normal NEGATIVE [facility] Comment on above: Performed By: #### E RUR #### [facility] [address] [place] [address] Dr. Berenice Collins pH (U) 6.0 [pH] Normal 5-9 [facility] Comment on above: Performed By: #### E RUR #### [facility] [address] [place] [address] Dr. Berenice Collins SPEC GRAVITY >=1.030 Abnormal 1.005-<=1.0 25 [facility] Comment on above: Performed By: #### E RUR #### [facility] [address] [place] [address] Dr. Berenice Collins UA PROTEIN Negative Normal NEGATIVE/ TRACE [facility] Comment on above: Performed By: #### E RUR #### [facility] [address] [place] [address] Dr. Berenice Collins UR MICRO IND NOT INDICATED Normal [facility] Comment on above: Performed By: #### E RUR #### [facility] [address] [place] [address] Dr. Berenice Collins Urobilinogen Qn (U) 0.2 {Ana'U}/dL Normal 0.2 - 1. 0 [facility] Comment on above: Performed By: #### E RUR #### [facility] [address] [place] [address] Dr. Berenice Collins PROF 14(COMP METB)on 021 Albumin [Mass/Vol] 2.3 g/dL Critically low 3.5-5.0 [facility] Comment on above: Performed By: #### E RUR #### [facility] [address] [place] [address] Dr. Berenice Collins Albumin/Globulin [Mass ratio] 0.5 {ratio} Normal [facility] Comment on above: Performed By: #### E RUR #### [facility] [address] [place] [address] Dr. Berenice Collins ALP [Catalytic activity/Vol] 133 U/L Critically high 38-126 [facility] Comment on above: Performed By: #### E RUR #### [facility] [address] [address] [address] Berenice Collins ALT [Catalytic activity/Vol] 24 U/L Normal 9-52 [facility] Comment on above: Performed By: #### E RUR #### [facility] [address] [place] [address] Dr. Berenice Collins Anion gap [Moles/Vol] 18.1 mmol/L Normal [facility] Comment on above: Performed By: #### E RUR #### [facility] [address] [address] [address] Berenice Collins AST [Catalytic activity/Vol] 39 U/L Critically high 14-36 [facility] Comment on above: Performed By: #### E RUR #### [facility] [address] [place] [address] Dr. Berenice Collins Bilirubin [Mass/Vol] 0.4 mg/dL Normal 0.2-1.3 [facility] Comment on above: Performed By: #### E RUR #### [facility] [address] [place] [address] Dr. Berenice Collins Calcium [Mass/Vol] 8.4 mg/dL Normal 8.4-10.2 [facility] Comment on above: Performed By: #### E RUR #### [facility] [address] [place] [address] Dr. Berenice Collins Chloride [Moles/Vol] 104 mmol/L Normal 98-107 [facility] Comment on above: Performed By: #### E RUR #### [facility] [address] [place] [address] Dr. Berenice Collins CO2 [Moles/Vol] 20.5 mmol/L Critically low 22.0-30.0 [facility] Comment on above: Performed By: #### E RUR #### [facility] [address] [place] [address] Dr. Berenice Collins Creatinine [Mass/Vol] 0.76 mg/dL Normal 0.52-1.04 [facility] Comment on above: Performed By: #### E RUR #### [facility] [address] [place] [address] Dr. Berenice Collins EGFR-AF GIBRALTARIAN >60 Normal >=60 [facility] Comment on above: Performed By: #### E RUR #### [facility] [address] [place] [address] Dr. Berenice Collins EGFR-NON AF GIBRALTARIAN >60 Normal >=60 [facility] Comment on above: Performed By: #### E RUR #### [facility] [address] [place] [address] Dr. Berenice Collins Globulin (S) [Mass/Vol] 4.2 g/dL Normal [facility] Comment on above: Performed By: #### E RUR #### [facility] [address] [place] [address] Dr. Berenice Collins Glucose [Mass/Vol] 94 mg/dL Normal 74-106 [facility] Comment on above: Performed By: #### E RUR #### [facility] [address] [place] [address] Dr. Berenice Collins Potassium [Moles/Vol] 3.6 mmol/L Normal 3.4-5.0 [facility] Comment on above: Performed By: #### E RUR #### [facility] [address] [place] [address] Dr. Berenice Collins Protein [Mass/Vol] 6.5 g/dL Normal 6.1-8.2 [facility] Comment on above: Performed By: #### E RUR #### [facility] [address] [place] [address] Dr. Berenice Collins Sodium [Moles/Vol] 139 mmol/L Normal 137-145 [facility] Comment on above: Performed By: #### E RUR #### [facility] [address] [place] [address] Dr. Berenice Collins Urea nitrogen [Mass/Vol] 7.0 mg/dL Normal 7.0-17.0 [facility] Comment on above: Performed By: #### E RUR #### [facility] [address] [place] [address] Dr. Berenice Collins Urea nitrogen/Creatinine [Mass ratio] 9.2 mg/mg Normal [facility] Comment on above: Performed By: #### E RUR #### [facility] [address] [id number] Berenice Collins TROPONIN, HIGH SENSITIVITYon 10-03-2021 HSTROP 5.1 pg/mL Normal 4.0-35.5 [facility] Comment on above: Result Comment: CUT- OFF POINTS HAVE BEEN ESTABLISHED BASED ON THE FOURTH UNIVERSAL DEFINITIONS OF MYOCARDIAL INFARCTION. THE UPPER REFERENCE LIMIT (URL) OF TROPONIN, DEFINED THE 99TH PERCENTILE OF cTnI DISTRIBUTION IN A REFERENCE POPULATION, HAS BEEN CONFIRMED THE DECISION THRESHOLD FOR MT DIAGNOSIS. Performed By: #### H STROPN #### [facility] [address] [address] [address] Berenice Collins T4, FreeOrdered By: Mee Tan ght on 03-24-2021 Thyroxine, Free 0.97 ng/dL 0.93 - 1.70 ng/dL [facility] TSH without ReflexOrdered By : Mee Marsh on 03-24-2021 TSH Qn 3.25 m[IU]/L [employer] Phone: T4, Freeon 10-24-2020 Thyroxine, Free 1.12 ng/dL 0.93 - 1.7 ng/dL [place] TSH without Reflexon 020 TSH Qn 3.72 m[IU]/L [place] Gerard 07-12-2020 ALT [Catalytic activity/Vol] 12 U/L 5 - 33 U/L [place] Jonatan 07-12-2020 AST [Catalytic activity/Vol] 13 U/L <32 [place] Basic Metabolic Panelon 07-02 Anion gap [Moles/Vol] 10 mmol/L 9 - 17 mmol/L [place] Bun/Cre Ratio 13 [place] Calcium [Mass/Vol] 9.6 mg/dL 8.6 - 10. 4 mg/dL [place] Chloride [Moles/Vol] 103 mmol/L 98 - 10 7 mmol/L [place] CO2 [Moles/Vol] 24 mmol/L 20 - 31 mmol/L [place] Creatinine [Mass/Vol] 0.76 mg/dL 0.5 - 0.9 mg/dL [place] GFR >60 >60 mL/min [place] GFR Non- >60 >60 mL/min [place] Glucose [Mass/Vol] 80 mg/dL 70 - 99 mg/dL [place] Potassium [Moles/Vol] 4.3 mmol/L 3.7 - 5.3 mmol/L [place] Sodium [Moles/Vol] 137 mmol/L 135 - 144 mmol/L [place] Urea nitrogen [Mass/Vol] 10 mg/dL 6 - 20 mg/dL [place] CBC Auto Differentialon 07-02 Basophils (Bld) [#/Vol] 0.04 10*3/uL [place] Basophils/100 WBC (Bld) 0 % 0 - 2 % [place] Differential Type NOT REPORTED [place] Eosinophils (Bld) [#/Vol] 0.14 10*3/uL [place] Eosinophils/100 WBC (Bld) 1 % 1 - 4 % [place] Erythrocyte distribution width (RBC) [Ratio] 13.4 % 11.8 - 14.4 % [place] Hematocrit (Bld) [Volume fraction] 40.4 % 36.3 - 47.1 % [place] Hemoglobin (Bld) [Mass/Vol] 13.1 g/dL 11.9 - 15.1 g/dL [place] Immature granulocytes (Bld) [#/Vol] 1 % High 0 [place] Immature granulocytes (Bld) [#/Vol] 0.05 10*3/uL [place] Interpretation and review of laboratory results Abnormal [place] Lymphocytes (Bld) [#/Vol] 2.59 10*3/uL [place] Lymphocytes/100 WBC (Bld) 24 % 24 - 43 % [place] MCH (RBC) [Entitic mass] 29.4 pg 25. 2 - 33.5 pg [place] MCHC (RBC) [Mass/Vol] 32.4 g/dL 28.4 - 34.8 g/dL [place] MCV (RBC) [Entitic vol] 90.6 fL 82.6 - 102.9 fL [place] Monocytes (Bld) [#/Vol] 0.74 10*3/uL [place] Monocytes/100 WBC (Bld) 7 % 3 - 12 % [place] Platelet mean volume (Bld) [Entitic vol] 11.0 fL 8.1 - 13.5 fL [place] Platelets (Bld) [#/Vol] 187 10*3/uL [place] Platelets (Bld) [#/Vol] NOT REPORTED [place] RBC (Bld) [#/Vol] 4.46 10*6/uL 3.95 - 5.1 1 m/uL [place] RBC morphology finding Nom (Bld) NOT REPORTED [place] Segmented neutrophils/100 WBC (Bld) 67 % High 36 - 65 % [place] Segs Absolute 7.37 [place] WBC (Bld) [#/Vol] 10.9 10*3/uL [place] WBC (Bld) [#/Vol] 0.0 10*3/uL 0.0 per 10 0 WBC [place] WBC Morphology NOT REPORTED [place] Lipid Panelon 07-12-2020 Cholesterol [Mass/Vol] 172 mg/dL <200 [place] Comment on above: Cholesterol Guidelines: <200 Desirable 200-240 Borderline >240 Undesirable Cholesterol in HDL [Mass/Vol] 39 mg/dL Low >40 [place] Comment on above: HDL Guidelines: <40 Undesirable 40-59 Borderline >59 Desirable Cholesterol in LDL [Mass/Vol] 110 mg/dL 0 - 130 mg/dL [place] Comment on above: LDL Guidelines: <100 Desirable 100-129 Near to/above Desirable 130-159 Borderline >159 Undesirable Direct (measured) LDL and calculated LDL are not interchangeable tests. Cholesterol in VLDL [Mass/Vol] NOT REPORTED 1 - 30 mg/dL [place] Cholesterol.total/Cholest deni in HDL [Mass ratio] 4.4 {ratio} <5 [place] Interpretation and review of laboratory results Abnormal [place] Triglyceride [Mass/Vol] 114 mg/dL <150 [place] Comment on above: Triglyceride Guidelines: <150 Desirable 150-199 Borderline 200-499 High >499 Very high Based on AHA Guidelines for fasting triglyceride, September 2012. Metabolic Panelon 07-12-2020 GFR/1.73 sq M predicted among non-blacks MDRD (S/P/Bld) [Vol rate/Area] [place] Comment on above: Stage 1: Some kidney damage normal GFR Stage 2: Mild kidney damage GFR 60-89 Stage 3: Moderate kidney damage GFR 30-59 Stage 4: Severe kidney damage GFR 15-29 Stage 5: Severe kidney damage GFR <15 ESRD - chronic treatment by dialysis or transplant Average GFR for 20-2 9 years old: 116 mL/min/1.73sq m Chronic Kidney Disease: <60 mL/min/1.73sq m Kidney failure: <15 mL/min/1.73sq m eGFR calculated using average adult body mass. Additional eGFR calculator available at: http://www.[employer]/multiple_crcl_2012.htm T4, Freeon 07-12-2020 Thyroxine, Free 1.07 ng/dL 0.93 - 1.7 ng/dL [place] TSH without Reflexon 020 TSH Qn 4.00 m[IU]/L [place] Estradiolon 03-22-2020 Estradiol 80 pg/mL 27 - 314 pg/mL [place] Comment on above: FEMALES: Normally menstruating Luteal phase 33-298 Follicular phase 27-156 Midcycle phase 48-314 Postmenopausal (untreated) 5-50 Fulvestrant treatment will show an increased estradiol concentration with this methodology. Alternate methodologies are available upon request. Follicle Stimulating Hormone on 03-22-2020 FSH 2.4 U/L 1.7 - 21.5 U/L [place] Comment on above: Reference Range: Male: 1.5-12.4 Ovulating Female: Follicular Phase 3.5-12.5 Ovulation Phase 4.7-21.5 Luteal Phase 1.7-7.7 Postmenopausal Female: 25.8-134.8 HCG, Quantitative, on 03-22-2020 hCG Quant <1 <5 IU/L [place] Comment on above: Non-preg premeno <=5 Postmeno <=8 Male <=3 If HCG results do not concur with clinical observations, additional testing to confirm results is recommended. Elevated results not associated with may be found in patients with other diseases such as tumors of the germ cells (testis, ovaries, etc.), bladder, pancreas, stomach, lungs, and liver. Luteinizing Hormoneon 2019 LH 6.0 U/L 1 - 95.6 U/L [place] Comment on above: Reference Range: Male: 1.7-8.6 Ovulating Female: Follicular Phase 2.4-12.6 Ovulation Phase 14.0-95.6 Luteal Phase 1.0-11.4 Postmenopausal Female: 7.7-58.5 Progesteroneon 03-22-2020 Progesterone 10.21 ng/mL [place] Comment on above: FEMALE (healthy): Follicular phase 0.06-0.89 Ovulation phase 0.12-12.00 Luteal phase 1.83-23.90 Postmenopausal <0.13 Prolactinon 03-22-2020 Prolactin 14.45 ug/L 4.79 - 23.3 ug/L [place] Comment on above: The presence of macr oprolactin may cause interference in female patients with various endocrinological diseases or during . TSH without Reflexon 020 TSH Qn 3.39 m[IU]/L [place] ABO/RHon 03-14-2020 ABO/Rh Positive [place] Basic Metabolic Panel w/ Ref jacob to MGon 03-14-2020 Anion gap [Moles/Vol] 13 mmol/L 9 - 17 mmol/L [place] Bun/Cre Ratio 17 [place] Calcium [Mass/Vol] 9.0 mg/dL 8.6 - 10. 4 mg/dL [place] Chloride [Moles/Vol] 101 mmol/L 98 - 10 7 mmol/L [place] CO2 [Moles/Vol] 24 mmol/L 20 - 31 mmol/L [place] Creatinine [Mass/Vol] 0.76 mg/dL 0.5 - 0.9 mg/dL [place] GFR >60 >60 mL/min [place], [place] GFR Non- >60 >60 mL/min [place] Glucose [Mass/Vol] 90 mg/dL 70 - 99 mg/dL [place] Interpretation and review of laboratory results Abnormal [place] Potassium [Moles/Vol] 3.6 mmol/L Low 3.7 - 5.3 mmol/L [place] Sodium [Moles/Vol] 138 mmol/L 135 - 144 mmol/L [place] Urea nitrogen [Mass/Vol] 13 mg/dL 6 - 20 mg/dL [place] CBC Auto Differentialon 03-02 Basophils (Bld) [#/Vol] 0.05 10*3/uL [place] Basophils/100 WBC (Bld) 0 % 0 - 2 % [place] Differential Type NOT REPORTED [place] Eosinophils (Bld) [#/Vol] 0.13 10*3/uL [place] Eosinophils/100 WBC (Bld) 1 % 1 - 4 % [place] Erythrocyte distribution width (RBC) [Ratio] 12.7 % 11.8 - 14.4 % [place] Hematocrit (Bld) [Volume fraction] 40.8 % 36.3 - 47.1 % [place] Hemoglobin (Bld) [Mass/Vol] 13.8 g/dL 11.9 - 15.1 g/dL [place] Immature granulocytes (Bld) [#/Vol] 0 % 0 [place] Immature granulocytes (Bld) [#/Vol] 0.03 10*3/uL [place] Interpretation and review of laboratory results Abnormal [place] Lymphocytes (Bld) [#/Vol] 2.65 10*3/uL [place] Lymphocytes/100 WBC (Bld) 23 % Low 24 - 43 % [place] MCH (RBC) [Entitic mass] 29.6 pg 25. 2 - 33.5 pg [place] MCHC (RBC) [Mass/Vol] 33.8 g/dL 28.4 - 34.8 g/dL [place] MCV (RBC) [Entitic vol] 87.4 fL 82.6 - 102.9 fL [place] Monocytes (Bld) [#/Vol] 0.72 10*3/uL [place] Monocytes/100 WBC (Bld) 6 % 3 - 12 % [place] Platelet mean volume (Bld) [Entitic vol] 11.1 fL 8.1 - 13.5 fL [place] Platelets (Bld) [#/Vol] NOT REPORTED [place] Platelets (Bld) [#/Vol] 217 10*3/uL [place] RBC (Bld) [#/Vol] 4.67 10*6/uL 3.95 - 5.1 1 m/uL [place] RBC morphology finding Nom (Bld) NOT REPORTED [place] Segmented neutrophils/100 WBC (Bld) 70 % High 36 - 65 % [place] Segs Absolute 7.86 [place] WBC (Bld) [#/Vol] 0.0 10*3/uL 0.0 per 10 0 WBC [place] WBC (Bld) [#/Vol] 11.4 10*3/uL [place] WBC Morphology NOT REPORTED [place] HCG, Quantitative, on 03-14-2020 hCG Quant <1 <5 IU/L [place] Comment on above: Non-preg premeno <=5 Postmeno <=8 Male <=3 If HCG results do not concur with clinical observations, additional testing to confirm results is recommended. Elevated results not associated with may be found in patients with other diseases such as tumors of the germ cells (testis, ovaries, etc.), bladder, pancreas, stomach, lungs, and liver. Metabolic Panelon 03-14-2020 GFR/1.73 sq M predicted among non-blacks MDRD (S/P/Bld) [Vol rate/Area] [place] Comment on above: Average GFR for 20-2 9 years old: 116 mL/min/1.73sq m Chronic Kidney Disease: <60 mL/min/1.73sq m Kidney failure: <15 mL/min/1.73sq m eGFR calculated using average adult body mass. Additional eGFR calculator available at: http://www.[employer]/multiple_crcl_2012.htm Stage 1: Some kidney damage normal GFR Stage 2: Mild kidney damage GFR 60-89 Stage 3: Moderate kidney damage GFR 30-59 Stage 4: Severe kidney damage GFR 15-29 Stage 5: Severe kidney damage GFR <15 ESRD - chronic treatment by dialysis or transplant Microscopic Urinalysison Amorphous, UA NOT REPORTED None [place] Bacteria, UA NOT REPORTED None [place] Casts UA NOT REPORTED /LPF [place] Crystals, UA NOT REPORTED None /HPF [place] Epithelial Cells UA 5 TO 10 [place] Interpretation and review of laboratory results Abnormal [place] Mucus, UA 2+ Abnormal None [place] Other Observations UA NOT REPORTED NOT REQ. [place] RBC (U) [#/Vol] [facility] [place] Renal Epithelial, UA NOT REPORTED 0 /HPF [place] Trichomonas, UA NOT REPORTED None [facility] [place] WBC, UA 2 TO 5 [place] Yeast, UA NOT REPORTED None [place] - [place] Urinalysis, reflex to micros copicon 03-14-2020 Bilirubin Urine Negative NEGATIVE [place] Color, UA YELLOW YELLOW [place] Glucose, Ur Negative NEGATIVE [place] Interpretation and review of laboratory results Abnormal [place] Ketones Ql (U) Negative NEGATIVE [place] Leukocyte esterase Test strip Ql (U) Negative NEGATIVE [place] Nitrite, Urine Negative NEGATIVE [place] pH, UA 6.0 [place] Protein (U) [Mass/Vol] Negative NEGATIVE [place], [place] Specific [place], UA >1.030 High [place], [place] Turbidity UA SLIGHTLY CLOUDY Abnormal CLEAR [place], [place] Urinalysis Comments NOT REPORTED [place] Urine Hgb Negative NEGATIVE [place] Urobilinogen, Urine Normal [place] CBC Auto Differentialon Basophils (Bld) [#/Vol] 0.04 10*3/uL [place] Basophils/100 WBC (Bld) 0 % 0 - 2 % [place], [place] Differential Type NOT REPORTED [place] Eosinophils (Bld) [#/Vol] 0.21 10*3/uL [place] Eosinophils/100 WBC (Bld) 2 % 1 - 4 % [place] Erythrocyte distribution width (RBC) [Ratio] 13.6 % 11.8 - 14.4 % [place] Hematocrit (Bld) [Volume fraction] 43.3 % 36.3 - 47.1 % [place] Hemoglobin (Bld) [Mass/Vol] 14.0 g/dL 11.9 - 15.1 g/dL [place] Immature granulocytes (Bld) [#/Vol] 0 % 0 [place] Immature granulocytes (Bld) [#/Vol] 0.03 10*3/uL [place] Interpretation and review of laboratory results Abnormal [place] Lymphocytes (Bld) [#/Vol] 2.15 10*3/uL [place] Lymphocytes/100 WBC (Bld) 24 % 24 - 43 % [place] MCH (RBC) [Entitic mass] 28.2 pg 25. 2 - 33.5 pg [place] MCHC (RBC) [Mass/Vol] 32.3 g/dL 28.4 - 34.8 g/dL [place] MCV (RBC) [Entitic vol] 87.1 fL 82.6 - 102.9 fL [place] Monocytes (Bld) [#/Vol] 0.68 10*3/uL [place] Monocytes/100 WBC (Bld) 7 % 3 - 12 % [place] Platelet mean volume (Bld) [Entitic vol] 11.2 fL 8.1 - 13.5 fL [place] Platelets (Bld) [#/Vol] NOT REPORTED [place] Platelets (Bld) [#/Vol] 215 10*3/uL [place] RBC (Bld) [#/Vol] 4.97 10*6/uL 3.95 - 5.1 1 m/uL [place] RBC morphology finding Nom (Bld) NOT REPORTED [place] Segmented neutrophils/100 WBC (Bld) 67 % [place] 36 - 65 % [place] Segs Absolute 6.04 [place], [place] WBC (Bld) [#/Vol] 9.2 10*3/uL [place] WBC (Bld) [#/Vol] 0.0 10*3/uL 0.0 per 10 0 WBC [place] WBC Morphology NOT REPORTED [place], [place] Comprehensive Metabolic Pane l w/ Reflex to MGon 08-09-2019 Albumin [Mass/Vol] 4 g/dL 3.5 - 5.2 g/dL [place] Albumin/Globulin [Mass ratio] 1.3 {ratio} [place] ALP [Catalytic activity/Vol] 83 U/L 35 - 104 U/L [place] ALT [Catalytic activity/Vol] 10 U/L 5 - 33 U/L [place] Anion gap [Moles/Vol] 13 mmol/L 9 - 17 mmol/L [place] AST [Catalytic activity/Vol] 12 U/L <32 [place] Bilirubin Ql (U) 0.23 mg/dL Low 0.3 - 1.2 mg/dL [place] Bun/Cre Ratio 21 [place], [place] Calcium [Mass/Vol] 9.4 mg/dL 8.6 - 10. 4 mg/dL [place] Chloride [Moles/Vol] 104 mmol/L 98 - 10 7 mmol/L [place] CO2 [Moles/Vol] 21 mmol/L 20 - 31 mmol/L [place] Creatinine [Mass/Vol] 0.81 mg/dL 0.5 - 0.9 mg/dL [place] GFR >60 >60 mL/min [place], [place] GFR Non- >60 >60 mL/min [place] Glucose [Mass/Vol] 121 mg/dL [place] 70 - 99 mg/dL [place] Interpretation and review of laboratory results Abnormal [place] Potassium [Moles/Vol] 4.1 mmol/L 3.7 - 5.3 mmol/L [place] Protein [Mass/Vol] 7.0 g/dL 6.4 - 8.3 g/dL [place] Sodium [Moles/Vol] 138 mmol/L 135 - 144 mmol/L [place] Urea nitrogen [Mass/Vol] 17 mg/dL 6 - 20 mg/dL [place] HCG Qualitative, Serumon hCG Qual Negative NEGATIVE [place] Comment on above: Specimens with hCG l evels near the threshold of the test (25 mIU/mL) may give a negative or indeterminate result. In such cases, another test should be performed with a new specimen in 48-72 hours. If early is suspected clinically in this setting, correlation with quantitative serum b-hCG level is suggested. [facility] [employer] has confirmed the use of plasma for this test. This has not been cleared or approved by the U.S. Food and Drug Administration. The FDA has determined that such clearance is not necessary. Lipaseon 08-09-2019 Lipase [Catalytic activity/Vol] 35 U/L 13 - 60 U/L [place] Metabolic Panelon 08-09-2019 GFR/1.73 sq M predicted among non-blacks MDRD (S/P/Bld) [Vol rate/Area] [place] Comment on above: Stage 1: Some kidney damage normal GFR Stage 2: Mild kidney damage GFR 60-89 Stage 3: Moderate kidney damage GFR 30-59 Stage 4: Severe kidney damage GFR 15-29 Stage 5: Severe kidney damage GFR <15 ESRD - chronic treatment by dialysis or transplant Average GFR for 20-2 9 years old: 116 mL/min/1.73sq m Chronic Kidney Disease: <60 mL/min/1.73sq m Kidney failure: <15 mL/min/1.73sq m eGFR calculated using average adult body mass. Additional eGFR calculator available at: http://www.[employer]/multiple_crcl_2012.htm Microscopic Urinalysison Amorphous, UA NOT REPORTED None [place], [place] Bacteria, UA 1+ Abnormal None [place], [place] Casts UA NOT REPORTED /LPF [place] Crystals UA NOT REPORTED None /HPF [place] Epithelial Cells UA 0 TO 2 [place] Interpretation and review of laboratory results Abnormal [place] Mucus, UA TRACE Abnormal None [place] Other Observations UA NOT REPORTED NOT REQ. M [place] RBC (U) [#/Vol] None [place], [place] Renal Epithelial, Urine NOT REPORTED 0 /HPF [place] Trichomonas, UA NOT REPORTED None [facility] [place] WBC, UA None [place] Yeast, UA NOT REPORTED None [place], [place] - [place] Urinalysis Reflex to Culture on 08-09-2019 Bilirubin Urine Negative NEGATIVE [place], [place] Color, UA YELLOW YELLOW [place] Glucose, Ur Negative NEGATIVE [place] Interpretation and review of laboratory results Abnormal [place], [place] Ketones Ql (U) Negative NEGATIVE [place] Leukocyte esterase Test strip Ql (U) Negative NEGATIVE [facility] [place], [place] Nitrite, Urine Negative NEGATIVE [facility]- [place], [place] pH, UA 5.5 [facility] Protein (U) [Mass/Vol] Negative NEGATIVE [facility] [place] Specific [place], UA >1.030 [facility] [place] Turbidity UA CLEAR CLEAR [facility] [place] Urinalysis Comments NOT REPORTED [facility] Urine Hgb Negative NEGATIVE [facility] Urobilinogen, Urine Normal Normal [facility] Vital Signs Date Time Vital Sign Value Performing Clinician Facility 06-17-2024 03:29-0400 Heart rate 93 /min Barbara Carlton MD [facility] 06-17-2024 03:29-0400 Respiratory rate 12 /min Barbara Carlton MD [facility] 06-17-2024 03:29-0400 SaO2% (BldA) [Mass fraction] 98 % Barbara Carlton MD Work Phone[facility] 06-17-2024 02:59-0400 Diastolic blood pressure 85 mm[Hg] Barbara Carlton MD Work Phone[facility] 06-17-2024 02:59-0400 Systolic blood pressure 111 mm[Hg] Barbara Carlton MD Work Phone[facility] 06-17-2024 00:41-0400 Body temperature 98.1 [degF] Barbara Carlton MD Work Phone: [facility] [employer] 06-17-2024 00:39-0400 Body height 167.6 cm Barbara Carlton MD Work Phone: [facility] [employer] 06-17-2024 00:39-0400 Body mass index (BMI) [Ratio] 43.58 kg/m2 Barbara Carlton MD Work Phone: [facility] [employer] 06-17-2024 00:39-0400 Body weight 122.47 kg Barbara Carlton MD Work Phone: [facility] [employer] 02-26-2024 17:51-0400 Body height 168.15 cm [employer] 02-26-2024 17:51-0400 Body mass index (BMI) [Ratio] 46.57 kg/m2 [employer] 02-26-2024 17:51-0400 Body surface area Derived from formula 2.48 m2 [employer] 02-26-2024 17:51-0400 Body weight 131.69 kg [employer] 02-26-2024 17:51-0400 Diastolic blood pressure 82 mm[Hg] [employer] 02-26-2024 17:51-0400 Heart rate 82 /min [employer] 02-26-2024 17:51-0400 Systolic blood pressure 126 mm[Hg] [employer] 03-26-2020 18:05-0400 BMI (Body Mass Index) 29.62 kg/m2 [facility] [place] 03-26-2020 18:05-0400 Body Temperature 97 [degF] [employer]- [facility], [place] 03-26-2020 18:05-0400 Body weight 80.74 kg [facility] , [place] 03-26-2020 18:05-0400 BP Diastolic 84 mm[Hg] [facility] [place] 03-26-2020 18:05-0400 BP Systolic 139 mm[Hg] [facility] [place] 03-26-2020 18:05-0400 Height 165.1 cm [facility] [place] 03-26-2020 18:05-0400 Pulse (Heart Rate) 104 /min [facility] [place] 03-26-2020 18:05-0400 Pulse Oximetry 98 % Quinton Cherelle [facility] [place] 03-26-2020 18:05-0400 Respiratory Rate 20 /min [facility] [place] 03-14-2020 15:54-0400 BMI (Body Mass Index) 31.47 kg/m2 Mee Marsh [facility], [place] 03-14-2020 15:54-0400 Body Temperature 97.39 [degF] Mee Marsh [facility] [place] , [place] 03-14-2020 15:54-0400 Body weight 88.45 kg Mee Marsh [facility] , [place] 03-14-2020 15:54-0400 BP Diastolic 110 mm[Hg] Meekia Marsh [facility] , [place] 03-14-2020 15:54-0400 BP Systolic 155 mm[Hg] Mee Marsh [facility] , [place] 03-14-2020 15:54-0400 Pulse (Heart Rate) 114 /min Mee Marsh [facility], [place] 03-14-2020 15:54-0400 Pulse Oximetry 97 % Mee Marsh [facility] , [place] 03-14-2020 15:54-0400 Respiratory Rate 14 /min Mee Marsh [facility], [place] 08-09-2019 08:34-0400 Pulse (Heart Rate) 99 /min Tomdoreen De Jesus [facility], [place] 08-09-2019 08:34-0400 Pulse Oximetry 98 % [facility] [place] 08-09-2019 08:34-0400 Respiratory Rate 22 /min [facility] [place] 08-09-2019 07:05-0400 BP Diastolic 83 mm[Hg] [facility]- [place] , [place] 08-09-2019 07:05-0400 BP Systolic 119 mm[Hg] [facility] [place] , [place] 08-09-2019 05:43-0400 BMI (Body Mass Index) 27.12 kg/m2 [facility] [place] 08-09-2019 05:43-0400 Body Temperature 98.1 [degF] [facility] [place] 08-09-2019 05:43-0400 Body weight 76.2 kg Tom [facility] , [place] 08-09-2019 05:43-0400 Height 167.6 [facility] [place] Encounters Encounter Date Encounter Type Care Provider Facility Start: 09-15-2024 End: 09-15-2024 ambulatory SAVITA GARCIA Not Available Start: 09-15-2024 End: 09-15-2024 Bamboo flowsheet Savita MARSHALL Work Phone: [facility] Start: 09-15-2024 End: 09-15-2024 Bamboo flowsheet Savita MARSHALL Work Phone: [facility] Start: 06-17-2024 End: 06-17-2024 Emergency department patient visit Barbara Carlton MD Work Phone: [facility] ED Comment on above: Chest wall pain (Monica duran Dx) Start: 05-19-2024 End: 05-19-2024 ambulatory JUAN DAVID JUDITH Not Available Start: 05-08-2024 End: 05-08-2024 ambulatory [facility] Start: 04-15-2024 End: 04-15-2024 ambulatory SAVITA GARCIA Not Available Start: 04-03-2024 End: 04-03-2024 ambulatory SAVITA L JOSE [facility] Start: 03-18-2024 End: 03-18-2024 ambulatory SAVITA JOSE Not Available Start: 03-06-2024 End: 03-06-2024 [facility] Start: 02-28-2024 End: 02-28-2024 ambulatory MEE W MIGHT [facility] Start: 02-28-2024 End: 02-28-2024 Subsequent hospital visit by physician Francis Maxwell [facility] Comment on above: Arrived Start: 02-26-2024 Procedure Aniyah Rosa rne Other [facility] Office Start: 02-21-2024 End: 02-21-2024 [facility] Start: 02-14-2024 End: 02-14-2024 ambulatory MEE Yusra Niño [facility] Start: 02-13-2024 End: 02-13-2024 ambulatory SAVITA GARCIA Not Available Start: 02-07-2024 End: 02-09-2024 [facility]ulatory [facility] Start: 02-07-2024 End: 02-07-2024 Subsequent hospital visit by physician Victor Manuel Rowe PT [facility] Physical Therapy Comment on above: Arrived Start: 01-16-2024 End: 01-16-2024 ambulatory JUAN DAVID LEVY Not Available Start: 12-13-2023 End: 12-13-2023 [facility] Start: 07-12-2023 End: 07-12-2023 ambulatory [facility] Start: 09-04-2022 End: 09-04-[address] JUAN DAVID LEVY Facility:H1 Start: 06-05-2022 End: 06-06-[address] JUAN DAVID LEVY Facility:H1 Start: 05-31-2022 End: 06-01-[address] JUAN DAVID LEVY Facility:H1 Start: 11-14-2021 Encounter for preprocedural laboratory examination PHU MCGEE [facility] Start: 11-11-2021 Encounter for preprocedural laboratory examination PHUJorge MCGEE [facility] Start: 11-08-2021 End: 11-09-2021 Evaluation and management of inpatient PHUJorge MCGEE Facility:H1 Start: 11-07-2021 End: 11-07-2021 Evaluation and management of inpatient PHU MCGEE Facility:H1 Start: 11-07-2021 End: 11-07-2021 ambulatory PHU MCGEE Facility:H1 Start: 11-07-2021 End: 11-07-2021 Encounter for preprocedural laboratory examination PHUJorge MCGEE Facility:H1 Start: 10-24-2021 End: 10-25-2021 ambulatory PHU MCGEE Facility:H1 Start: 10-03-2021 End: 10-03-[address] DOCTOR PARHAM Facility:H1 Start: 03-24-2021 End: 03-24-2021 Subsequent hospital visit by physician Mee Bright CNP Work Phone: [facility] Laboratory Comment on above: Fatigue due to depre ssion; 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 Start: 10-24-2020 End: 10-24-2020 Subsequent hospital visit by physician Cady Lab Drawing Room [facility] Laboratory Comment on above: Hypothyroidism due t o Clint's thyroiditis Start: 07-12-2020 End: 07-12-2020 Subsequent hospital visit by physician Mee Marsh [facility] Laboratory Comment on above: Hypothyroidism due t o Clint's thyroiditis Start: 03-26-2020 End: 03-26-2020 Emergency department patient visit Quinton Leonel Cherelle Work Phone: [facility] ED Comment on above: Laceration of left l ower extremity, initial encounter (Primary Dx) Start: 03-22-2020 End: 03-22-2020 Subsequent hospital visit by physician Mee Marsh [facility] Laboratory Comment on above: Screen for STD (sexu ally transmitted disease); SAB (spontaneous ) Start: 03-14-2020 End: 03-14-2020 Emergency department patient visit [facility] ED Comment on above: Vaginal bleeding (Pr imary Dx) Start: 08-09-2019 End: 08-09-2019 Emergency department patient visit Tom De Jesus Work Phone: [facility] ED Comment on above: Abdominal pain, righ t lower quadrant (Primary Dx); Mesenteric adenitis Procedures Date Procedure Procedure Detail Performing Clinician Start: 06-17-2024 Ct thorax w/contrast material Barbara Carlton MD Work Phone: Start: 06-17-2024 Radiologic exam ches t single view Barbara Carlotn MD Work Phone: Start: 06-17-2024 Basic metabolic pane l calcium total Barbara Carlton MD Work Phone: Start: 06-17-2024 Ecg routine ecg w/le ast 12 lds w/i&r Barbara Carlton MD Work Phone: Start: 02-26-2024 Nerve conduction nora dies 9-10 studies Aniyah Waite Start: 11-08-2021 Extraction of Produc ts of Conception, Low Cervical, Open Approach PHU MCGEE Start: 03-24-2021 Assay of free thyroxine Mee W Might ELECTRICAL LINE WORKER - DATA PROCESSING MECHANIC Work Phone: Start: 10-24-2020 Assay of free thyroxine Mee W Might Work Phone: Start: 10-24-2020 Assay of thyroid stimulating hormone tsh Mee W Might Work Phone: Start: 07-12-2020 Assay of free thyroxine Mee W Might Work Phone: Start: 07-12-2020 Assay of thyroid stimulating hormone tsh Mee W Might Work Phone: Start: 07-12-2020 Basic metabolic pane l calcium total Mee W Might Work Phone: Start: 07-12-2020 Blood count complete auto&auto difrntl wbc Mee W Might Work Phone: Start: 07-12-2020 Lipid panel Mee W Mi ght Work Phone: Start: 07-12-2020 Transferase alanine amino alt sgpt Mee W Might Work Phone: Start: 07-12-2020 Transferase aspartat e amino ast sgot Mee W Might Work Phone: Start: 03-22-2020 Gonadotropin chorion ic quantitative Aislinn E Pool Work Phone: Start: 03-22-2020 Assay of estradiol Jazmyn radha E Pool Work Phone: Start: 03-22-2020 Assay of progesterone K athleen E Pool Work Phone: Start: 03-22-2020 Assay of prolactin Jazmyn radha E Pool Work Phone: Start: 03-22-2020 Assay of thyroid stimulating hormone tsh Aislinn E Pool Work Phone: Start: 03-22-2020 Gonadotropin follicl e stimulating hormone Aislinn E Pool Work Phone: Start: 03-22-2020 Gonadotropin luteini zing hormone Aislinn E Pool Work Phone: Start: 03-14-2020 BASIC METABOLIC PANE L W/ REFLEX TO MG FOR LOW K Felton Hinds Work Phone: Start: 03-14-2020 Blood count complete auto&auto difrntl wbc Felton Hinds Work Phone: Start: 03-14-2020 Blood typing serologic abo Felton Hinds Work Phone: Start: 03-14-2020 Gonadotropin chorion ic quantitative Felton Hinds Work Phone: Start: 03-14-2020 Urinalysis microscop ic only Felton Hinds Work Phone: Start: 03-14-2020 Urnls dip stick/tabl et rgnt auto w/o microscopy Felton Hinds Work Phone: Start: 08-09-2019 Us transvaginal Tom A [employer] Work Phone: Start: 08-09-2019 Ct abdomen & pelvis w/contrast material Tom A [employer] Work Phone: Start: 08-09-2019 Urinalysis microscop ic only Tom A [employer] Work Phone: Start: 08-09-2019 Urnls dip stick/tabl et rgnt auto w/o microscopy Tom A Neal Work Phone: Start: 08-09-2019 Assay of lipase Tom A Neal Work Phone: Start: 08-09-2019 Blood count complete auto&auto difrntl wbc Tom A Neal Work Phone: Start: 08-09-2019 Gonadotropin chorion ic qualitative Tom A Neal Work Phone: Plan of Treatment Date Care Activity Detail Author Start: 05-24-2025 End: 05-24-2025 Patient encounter procedure 05/24/2025 4:00 PM EDT Office Visit [facility] [address] [place] [address] Juan David Levy DO [address] [place] [place] [address] [facility] Start: 04-16-2025 End: 04-16-2025 Patient encounter procedure 04/16/2025 7:00 AM EDT Office Visit [facility] [address] [place] [id number] Mee Marsh, ELECTRICAL LINE WORKER - DATA PROCESSING MECHANIC [address] [place] [facility] [place] [address] Yearly [facility] Comment on above: Yearly Start: 12-11-2024 Depression Monitoring Depression [facility] Start: 12-11-2024 DTaP/Tdap/Td vaccine (1 - Tdap) DTaP/Tdap/Td vaccine (1 - Tdap) [facility] Comment on above: Postponed from 08/19 (Patient Refused) Start: 12-11-2024 Screening for malign ant neoplasm of cervix Pap smear [facility] Comment on above: Postponed from 08/19 (Not Indicated) Start: 10-11-2024 Hepatitis B vaccine (1 of 3 - 3-dose series) Hepatitis B vaccine (1 of 3 - 3-dose series) [facility] Comment on above: Postponed from 08/19 (Patient Refused) Start: 10-11-2024 Influenza vaccination Flu vaccine (# 1) [facility] Comment on above: Postponed from 07/02 (Patient Refused) Start: 09-15-2024 End: 09-15-2024 Patient encounter procedure 09/15/2024 2:50 PM EDT Office Visit [facility] [address] [place] [address] Savita Garcia PA [address] [place] [address] Arrived [facility] Comment on above: Arrived Start: 07-02-2024 Influenza vaccination Flu vaccine (# 1) [facility] Start: 05-30-2024 COVID-19 Vaccine (#1) COVID-19 Vacci ne (#1) [facility] Comment on above: Postponed from 02/16 (Not Indicated) Start: 05-30-2024 Hepatitis C screening Hepatitis C sc rasheed [facility] Comment on above: Postponed from 08/19 (Patient Refused) Start: 04-10-2024 End: 04-10-2024 Patient encounter procedure 04/10/2024 9:00 AM EDT Office Visit [facility] [address] [place] [address] Mee Marsh, ELECTRICAL LINE WORKER - DATA PROCESSING MECHANIC [address] [place] [address] 6 month [facility] Comment on above: 6 month Start: 03-06-2024 End: 03-06-2024 Patient encounter procedure 03/06/2024 10:[address] [facility] [address] [place] [phone] Francis Maxwell, RN [facility] Start: 03-06-2024 Subsequent hospital visit by physician 03/06/2024 10:45 AM EDT Hospital Encounter [facility] [address] [place] [phone] Francis Maxwell, RN [facility] Start: 02-28-2024 End: 02-28-2024 Patient encounter procedure 02/28/2024 10:[address] [facility] [address] [place] [phone] Francis Maxwell, RN [facility] Start: 02-21-2024 End: 02-21-2024 Patient encounter procedure 02/21/2024 10:[address] [facility] [address] [place] [phone] Francis Maxwell, RN [facility] Start: 02-14-2024 End: 02-14-2024 Patient encounter procedure 02/14/2024 9:[address] [facility] [address] [place] [phone] Em Alonso, NITHYA [facility] Start: 03-10-2022 COVID-19 Vaccine (1) COVID-19 Vaccin e (1) [facility] [employer] Phone: Comment on above: Postponed from 08/19 (Patient Refused) Start: 03-10-2022 Hepatitis C screening Hepatitis C sc reen [facility] [employer] Phone: Comment on above: Postponed from 08/19 (Patient Refused) Start: 09-09-2021 Influenza vaccination [place] Comment on above: Postponed from 08/02 (Patient Refused) Postponed from 08/02 (Patient Refused) Start: 06-29-2021 DTaP/Tdap/Td vaccine (1 - Tdap) DTaP/Tdap/Td vaccine (1 - Tdap) [place] Comment on above: Postponed from 08/19 (Patient Refused) Start: 06-29-2021 HPV vaccine (1 - 2-d ose series) HPV vaccine (1 - 2-dose series) [place] Comment on above: Postponed from 08/19 (Patient Refused) Start: 06-29-2021 Pneumococcal 0-64 ye ars Vaccine (1 of 1 - PPSV23) Pneumococcal 0-64 years Vaccine (1 of 1 - PPSV23) [place] Comment on above: Postponed from 08/19 (Patient Refused) Start: 06-29-2021 Screening for malign ant neoplasm of cervix Cervical cancer screen [place] Comment on above: Postponed from 08/19 (Patient Refused) Start: 06-29-2021 Varicella vaccine (1 of 2 - 2-dose childhood series) Varicella vaccine (1 of 2 - 2-dose childhood series) [place] Comment on above: Postponed from 08/19 (Patient Refused) Start: 06-26-2021 End: 06-26-2021 Patient encounter procedure 06/26/2021 Office Visit Primary Care Might, Mee Meng, ELECTRICAL LINE WORKER - DATA PROCESSING MECHANIC [address] [facility] [address] [facility] Start: 03-27-2021 End: 03-27-2021 Patient encounter procedure 03/27/2021 Office Visit Primary Care Mee Marsh, ELECTRICAL LINE WORKER - DATA PROCESSING MECHANIC [address] [facility] [address] [phone] [facility] Start: 03-22-2021 Screening for Chlamy rosalio trachomatis Chlamydia screen [place] Start: 10-26-2020 End: 10-26-2020 Office Visit 10/26/2020 Office Visit Primary Care Mee Marsh, ELECTRICAL LINE WORKER - DATA PROCESSING MECHANIC [address] [facility] [place] [id number] [facility] Start: 08-02-2020 Influenza vaccination [place] Start: 07-28-2020 End: 07-28-2020 Office Visit 07/28/2020 Office Visit Obstetrics and Gynecology Aislinn Proctor ELECTRICAL LINE WORKER - CNM [address] [facility] [place] [address] [phone] [facility] OBST[facility] & [facility]YNECOLOGY Start: 07-13-2020 End: 07-13-2020 Office Visit 07/13/2020 Office Visit Primary Care Mee Marsh ELECTRICAL LINE WORKER - DATA PROCESSING MECHANIC [address] [facility] [place] [phone] [facility] Start: 06-01-2020 Cervical cancer screen Cervical canc er screen [place], [place] Comment on above: Postponed from 08/19 (Patient Refused) Start: 06-01-2020 Chlamydia screen Chlamydia screen [place], [place] Comment on above: Postponed from 01/02 (Patient Refused) Start: 06-01-2020 DTaP/Tdap/Td vaccine (1 - Tdap) DTaP/Tdap/Td vaccine (1 - Tdap) [place] Comment on above: Postponed from 08/19 (Patient Refused) Start: 06-01-2020 HPV vaccine (1 - 2-d ose series) HPV vaccine (1 - 2-dose series) [place] Comment on above: Postponed from 08/19 (Patient Refused) Start: 06-01-2020 HPV vaccine (1 - Fem rimma 3-dose series) HPV vaccine (1 - Female 3-dose series) [place] Comment on above: Postponed from 08/19 (Patient Refused) Start: 06-01-2020 Pneumococcal 0-64 ye ars Vaccine (1 of 1 - PPSV23) Pneumococcal 0-64 years Vaccine (1 of 1 - PPSV23) [place] Comment on above: Postponed from 08/19 (Patient Refused) Start: 06-01-2020 Screening for Chlamy rosalio trachomatis Chlam[place] Comment on above: Postponed from 01/02 (Patient Refused) Start: 06-01-2020 Screening for malign ant neoplasm of cervix Cervical cancer [place] Comment on above: Postponed from 08/19 (Patient Refused) Start: 06-01-2020 Varicella Vaccine (1 of 2 - 13+ 2-dose series) Varicella Vaccine (1 of 2 - 13+ 2-dose series) [place] Comment on above: Postponed from 08/19 (Patient Refused) Start: 06-01-2020 Varicella vaccine (1 of 2 - 2-dose childhood series) Varicella vaccine (1 of 2 - 2-dose childhood series) [place] Comment on above: Postponed from 08/19 (Patient Refused) Start: 12-03-2019 End: 12-03-2019 Office Visit 12/03/2019 Office Visit Primary Care Mee Marsh, ELECTRICAL LINE WORKER - DATA PROCESSING MECHANIC [address] [place] [address] [phone] [facility] [place] Start: 08-02-2019 Influenza vaccination Flu vaccine (# 1) [place] Start: 2013 Hepatitis C screening Hepatitis C sc reen [facility] Start: 02-17-1996 COVID-19 Vaccine (#1) COVID-19 Vacci ne (#1) [facility] End: 03-22-2020 C.trachomatis N.gonorrhoeae DNA, Urine C.trachomatis N.gonorrhoeae DNA, Urine Microbiology Routine Screen for STD (sexually transmitted disease) 1 Occurrences starting 03/22/2020 until 03/22/2020 [facility]: [facility] Occurrences starti ng 03/22/2020 until 03/22/2020 C.trachomatis N.gonorrhoeae DNA, Urine C.trachomatis N.gonorrhoeae DNA, Urine Microbiology Routine Screen for STD (sexually transmitted disease) 03/22/2020 5:37 PM EDT [facility] PELVIS W IV CONTRAST CT ABDOMEN PELVIS W IV CONTRAST Imaging STAT 08/09/2019 7:20 AM EDT [facility] 12 Lead EKG 12 Lead ECG STAT 06/17/2024 12:48 AM EDT [facility] US NON OB TRANSVAGINAL US NON OB TRANSVAGINAL Imaging STAT 08/09/2019 7:46 AM EDT [facility] Payers Date Payer Category Payer Medicaid (Managed Care) [facility] MEDICAID [id number] 2020 Unknown [employer] [address] [id number] 2020-Present [phone] [address] [place] [address] [id number] .[id number] 2020 Unknown [facility] HE[facility]AN [facility] xxxxxxxxxxxx 2020-Present [phone] [address] [place] [address] xxxxxxxxxxxx [id number] .[id number] 2019 Private Health Insurance [facility] PLU xxxxxxxxx 2019-Present [phone] [facility] [address] [place] [address] xxxxxxxxx [id number] .7.3.366531.315 1995 Unknown [id number] 2.16.840.1.442080.3.579.2 .593 1995 Unknown [id number] 2.16.840.1.802205.3.579.2 .593 1995 Unknown [id number] 2.16.840.1.476105.3.579.2 .593 1995 Unknown [id number] 2.16.840.1.869985.3.579.2 .593 1995 Unknown [id number] 2.16.840.1.379032.3.579.2 .593 1995 Unknown [id number] 2.16.840.1.319739.3.579.2 .593 1995 Unknown [id number] 2.16.840.1.151989.3.579.2 .593 1995 Unknown [id number] 2.16.840.1.806730.3.579.2 .593 1995 Unknown [id number] 2.16.840.1.600639.3.579.2 .1286 1995 Unknown [id number] 2.16.840.1.090075.3.579.2 .173 1995 Unknown [id number] 2.16.840.1.570108.3.579.2 .173 1995 Unknown [id number] 2.16.840.1.585161.3.579.2 .173 1995 Unknown [id number] 2.16.840.1.317980.3.579.2 .173 1995 Unknown [id number] 2.16.840.1.815246.3.579.2 .173 1995 Unknown [id number] 2.16.840.1.267245.3.579.2 .173 1995 Unknown [id number] 2.16.840.1.167074.3.579.2 .173 1995 Unknown [id number] 2.16.840.1.683378.3.579.2 .173 1995 Unknown [id number] 2.16.840.1.800982.3.579.2 .173 1995 Unknown [id number] 2.16.840.1.065095.3.579.2 .173 1995 Unknown [id number] 2.16.840.1.662891.3.579.2 .173 1995 Unknown [id number] 2.16.840.1.778865.3.579.2 .9 1995 Unknown [id number] 2.16.840.1.045204.3.579.2 .1258 1995 Unknown [id number] 2.16.840.1.045650.3.579.2 .9 1995 Unknown [id number] 2.16.840.1.287498.3.579.2 .9 1995 Unknown [id number] 2.16.840.1.718974.3.579.2 .9 1995 Unknown [id number] 2.16.840.1.436699.3.579.2 .1259 1959 Unknown [id number] 1.2.840.680203.1.13.239.2 .7.3.910971.315 Social History Date Type Detail Facility Start: 03-22-2020 End: 03-26-2020 Tobacco smoking status NHIS Current every day smoker [place] Start: 05-16-2013 End: 01-02-2021 History of tobacco use Cigarette Sm[place] Start: 03-26-2020 End: 05-19-2024 Cigarettes smoked current (pack per day) - [facility] Start: 03-26-2020 End: 06-17-2024 Alcohol intake Lifetime non-drinker (finding) [facility] Start: 06-01-2019 History SDOH Alcohol Frequency 1 [facility] Start: 1995 Sex Assigned At Not on file M [place], [place] Exposure to SARS-CoV -2 (event) Unable to assess [facility] Start: 06-29-2020 End: 05-19-2024 Tobacco use and exposure Never used [facility] [place] , [place] Exposure to SARS-CoV -2 (event) Not sure [facility] Start: 08-09-2019 End: 05-19-2024 [facility] intake [facility] Start: 03-10-2021 End: 05-19-2024 Tobacco smoking status NHIS Former smoker [facility] Start: 05-16-2013 End: 01-02-2021 History of tobacco use [facility] Frequency of Alcohol Consumption Never [facility] Start: *Tobacco [facility] Start: 05-19-2024 Alcoholic beverage intake Ex-drinker (finding) [facility] Start: 08-29-2023 Tobacco Comment Current smoker , frequency unknown [facility] Start: 08-29-2023 Alcohol Comment caffeine: none [facility] History of Present illness Narrative 02-07-2024 Victor Manuel Rowe, PT - 02/07/2024 9:00 AM EST Note Date & Type Note Facility 02-07-2024 History of Present illness Narrative [facility] Outpatient Physical Therapy Evaluation Date: 02/07/2024 Patient: Valerie Lakhani : 1995 CSN #: [id number] Referring Physician: Mee Marsh APRN - * Medical Diagnosis: Cervical radiculopathy, M54.12; B hand numbness, R20.0 Treatment Diagnosis: L thoracic outlet syndrome; R cubital tunnel syndrome/golfer's elbow PT Insurance Information: Malaika Total # of Visits Approved: 12 Total # of Visits to Date: 1 No Show: 0 Canceled Appointment: 0 [x] This tech writer acknowledges review of patient history form Subjective Subjective: Patient reports she's been dealing with wrist pain for years but now she's got R elbow pain, numbness and tingling into the hand, and she's got numbness in the L wrist, neck pain, headaches and tailbone pain as well. Pt plans to get neck xray after this PT visit and EMG for arms at the end of this month. She's going to see a foot doctor for foot numbness as well. Pt reports R medial elbow and pinky numbness/tingling. Pt also notices R hand weakness. 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 B shoulder ROM is WNL's. Veronica test: (+) L side for possible thoracic outlet syndrome; Spurlings compression: (-) bilaterally. (+) ULTT for R ulnar nerve involvement with entrapment at the cubital tunnel. Pt sits with fwd head and shoulders. Objective Strength Strength LUE L Shoulder Flexion: 4/5 L Shoulder ABduction: 4/5 L Shoulder Internal Rotation: 4+/5 L Shoulder External Rotation: 4/5 L Elbow Flexion: 4/5 L Elbow Extension: 4/5 Cervical Assessment AROM Cervical Spine Cervical spine general AROM: flexion: 55*, ext: 52*, B SB: 45* with pulling pain with R SB, B rotation: 65* Exercises: Exercise 1: HEP: scalenes stretch, upper trap stretch, shoulder rolls/retracs, purple band rows/ext, orange band hab's/diag's, ulnar nerve glides, wrist extension stretch Manual: Soft Tissue Mobilizaton: >>trial cupping to R medial elbow; trial STM to L neck Functional Outcome Measures Open a tight or new jar: Moderate Difficulty Do heavy meat boner and slicer (e.g., wash valenzuela, floors): Moderate Difficulty Nelly a shopping bag or briefcase: Mild Difficulty Wash your back: No Difficulty Use a knife to cut food: Mild Difficulty Recreational activities in which you take some force or impact through your arm, shoulder, or hand (e.g., golf, hammering, tennis, etc.): Moderate Difficulty During the past week, to what extent has your arm, shoulder or hand problem interfered with your normal social activities with family, friends, neighbors or groups?: Moderately During the past week, were you limited in your work or other regular daily activities as a result of your arm, shoulder or hand problem?: Moderately Limited Arm, shoulder or hand pain: Severe Tingling (pins and needles) in your arm, shoulder or hand: Severe During the past week, how much difficulty have you had sleeping because of the pain in your arm, shoulder or hand?: Mild Difficulty QuickDASH Total Score: 30 QuickDASH Disability/Symptom Score : 43.18 % Assessment Assessment: Patient is 28 year old female with dx of B hand numbness and cervical radiculopathy who presents with neck pain and intermittent B hand numbness and pain up to 7/10 with certain activities.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 B shoulder ROM is WNL's. Veronica test: (+) L side for possible thoracic outlet syndrome; Spurlings compression: (-) bilaterally. (+) ULTT for R ulnar nerve involvement with entrapment at the cubital tunnel. Pt sits with fwd head and shoulders. Patient with CROM WFL's. R UE strength: 4-/5 grossly. L UE strength: 4/5 grossly. Patient to benefit from physical therapy to decrease tone and nerve tension and improve postural strength and control to return to PLOF. Therapy Prognosis: Good Decision Making: Low Complexity Patient Education PT eval, POC, HEP Pt verbalized/demonstrated good understanding: [X] Yes [] No, pt required further clarification. Goals Short Term Goals Time Frame for Short Term Goals: 3 weeks Short Term Goal 1: Patient to initiate HEP for improved postural control and mobility. Short Term Goal 2: Pt to be given updated and progressed HEP handouts at weekly appointments to progress B UE strength and endurance. Short Term Goal 3: Initiate manual techniques/modalities prn to decrease pain and improve mobility. Snf Goals Time Frame for Snf Goals : 6 weeks Snf Goal 1: Patient to be independent and compliant with HEP. Snf Goal 2: Patient to have (-) ULTT for R ulnar nerve and (-) Veronica test for L thoracic outlet syndrome to return to PLOF. Snf Goal 3: Patient to have improved B mid/lower trap strength >/=4+/5 for improved postural control. Snf Goal 4: Patient to report >/=75% improvement in symptoms to return to PLOF. 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 documented in this encounter [facility] Work Phone: Evaluation note Note Date & Type Note Facility Evaluation note Diagnosis Chest wall pain- Primary Painful respiration documented in this encounter [facility] Hospital Discharge instructions Attachments Note Date & Type Note Facility Hospital Discharge instructions The following attachments cannot be sent through Care Everywhere.Chest Pain: Musculoskeletal (Singaporean)documented in this encounter [facility] Discharge Instructions * Attachments The following attachments cannot be sent through Care Everywhere. * Lacerations: Stitches (Singaporean) documented in this encounter* Attachments The following attachments cannot be sent through Care Everywhere. * Vaginal Bleeding (Singaporean) documented in this encounter* Attachments The following attachments cannot be sent through Care Everywhere. 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 Diagnosis Abdominal pain, right lower quadrant- Primary Mesenteric adenitis Nonspecific mesenteric lymphadenitis Diagnosis Screen for STD (sexually transmitted disease) Screening examination for venereal disease SAB (spontaneous ) Unspecified spontaneous without mention of complication Advance Directives Documents on File Type Date Recorded Patient Toolroom Attendant Expl anation Advance Directives and Living Will Power of Business Services Coordinator Documents on File Type Date Recorded Patient Toolroom Attendant Expl anation ACP-Advance Directive ACP-Power of Business Services Coordinator Healthcare Agents on File Name Relationship Healthcare Agent Relationship Communication Antwan Compliment Boyfriend Primary Decision Maker Healthcare Agents on File Name Relationship Healthcare Agent Relationship Communication Antwan Mcdowell Boyfriend Primary Decision Maker Healthcare Agents on File Name Relationship Healthcare Agent Relationship Communication Antwan Mcdowell Boyfriend Primary Decision Maker Summary Purpose Family History No Family History Records FoundNo Family History Records FoundNo Family History Records FoundNo Family History Records Found Additional Source Comments Reason for Visit (unrecogniz ed section and content) Reason Comments Foot Injury Laceration to left f oot from screen door at home today at 1730 Reason Comments Vaginal Bleeding pt states she had a positive test 3 weeks ago and started to bleed A week ago Reason Comments Abdominal Pain onset at 0300 hours; feels like a giant cramp ; nausea without emesis Dizziness Reason Comments Chest Pain Starting at noon yes terday, reports getting worse, worse with movement and deep breathing accompanied with shortness of breath INFORMATION SOURCE (unrecogn ized section and content) DATE CREATED AUTHOR 09/11/2022 [facility] DATE CREATED AUTHOR AUTHOR'S ORGANIZ ATION 05/09/2024 [facility] DATE CREATED AUTHOR AUTHOR'S ORGANIZ ATION 06/20/2024 [facility] DATE CREATED AUTHOR AUTHOR'S ORGANIZ ATION 09/17/2024 [facility] Care Teams (unrecognized sec tion and content) Tour Consultant Relationship Specialty Start Date End Date Mee Marsh APRN - CNP PCP - General Family Nurse Practitioner 06/01/19 Tour Consultant Relationship Specialty Start Date End Date Mee Marsh APRN - CNP PCP - General Family Nurse Practitioner 06/01/19 Tour Consultant Relationship Specialty Start Date End Date Mee Marsh APRN - CNP PCP - General Family Nurse Practitioner 06/01/19 Ordered Prescriptions (unrec ognized section and content) Prescription Sig Dispensed Refills Start Date End Da te ketorolac (TORADOL) 10 MG tablet Take 1 tablet by mouth every 8 hours as needed for Pain 15 tablet 0 06/17/2024 Scheduled Active and Recently Administ ered Medications (unrecognized section and content) Medication Order 06/15/2024 06/16/2024 06/17/2024 ketorolac (TORADOL) injection 15 mg (COMPLETED) 15 mg, IntraVENous, ONCE, 1 dose, On Sat06/17/24 at 0100, Do not administer for more than 5 days. 0226 (Given - Provid er: Cici Grande RN) sodium chloride 0.9 % bolus 1,000 mL (COMPLETED) 1,000 mL (8.16 mL/kg), IntraVENous, at 1,935.5 mL/hr, Administer over 31 Minutes, ONCE, On Sat06/17/24 at 0100, For 1 dose 0057 (New Bag - Prov ider: Cici Grande RN)0226 (Stopped - Provider: Cici Grande RN) PRN Medication Order 06/15/2024 06/16/2024 06/17/2024 iopamidol (ISOVUE-370) 76 % injection 75 mL (COMPLETED) 75 mL, IntraVENous, IMG ONCE PRN, 1 dose, Starting on Sat06/17/24 at 0158, Until Sat06/17/24 at 0206, Other 0206 (Given - Provid er: [facility]) FOR RECORDS PERTAINING TO PATIENTS WHO ARE OR HAVE BEEN ENROLLED IN A CHEMICAL DEPENDENCY/SUBSTANCEABUSE PROGRAM, SOME INFORMATION MAY BE OMITTED. This clinical summary was aggregated from multiple sources. Caution should be exercised in using it in the provision of clinical care. This summary normalizes information from multiple sources, and as a consequence, information in this document may materially change the coding, format and clinical context of patient data. In addition, data may be omitted in some cases. CLINICAL DECISIONS SHOULD BE BASED ON THE PRIMARY CLINICAL RECORDS. [employer] provides no warranty or guarantee of the accuracy or completeness of information in this document.
--- NOTE | 2024-09-18 07:39 | US_ITS ---
The [address] [address] Patient Name: VALERIE LAKHANI MRN: [id number] date: 1995 Sex: F Assigned Patient Location: US Current Patient Location: Accession/Order Number: [id number] Exam Date: 09/18/2024 07:45 Report Date: 09/21/2024 08:16 At the request of: RIAN WONG Procedure: US right upper quadrant EXAM: US right upper quadrant HISTORY: Right Upper Quadrant PAin COMPARISON: None. TECHNIQUE: Grayscale, color and Doppler FINDINGS: The liver is normal in size, contour and echotexture measuring 17.8 cm in length. No focal hepatic mass. Hepatopedal flow in the main portal vein with velocity of 46 cm/s. The gallbladder is normal in size. The wall measures 2 mm. Echogenic focus measuring 1.3 cm with acoustic shadowing, cholelithiasis. The common bile duct measures 2.5 mm, normal. The visualized pancreas is normal The right kidney is normal measuring 10.0 x 4.5 x 4.7 cm US/US right upper quadrant IMPRESSION: Cholelithiasis without evidence of acute cholecystitis Electronically authenticated by: PRAMOD OLIVAREZ Date: 09/21/2024 08:16
== END 2024-09-18 07:28 | disposition home or self-care (01) ==
LOC: US 07:27
PROVIDERS: Visit Provider Obstetrics & Gynecology
DX: R10.11 Right upper quadrant pain (principal); K80.20 Calculus of gallbladder without cholecystitis without obstruction
CPT/HCPCS: 36415; 76705; 80053; 83036; 83690; 84443; 85025

== ENCOUNTER 2024-09-18 08:10 | Outpatient (OUT) | payer OTHER, SELFPAY ==
--- OUTSIDE RECORDS SUMMARY | 2024-09-18 08:13 | XMS_ITS | CCD ---
Author Organization [facility] [email or web address] Care Team Providers Care Truck Headlight Assembler Name Role Phone Mee Marsh Primary Care Provider [phone] PH[facility] MCGEE Admitting Unavailable PH[facility] MCGEE Attending [...] (antibiotic) (1 source) Penicillins Drug Allergy 6 [facility] (8 sources) Penicillins; Translations: [PENICILLINS] Propensity to adverse reactions to drug 6 [place] (1 source) Penicillins Drug allergy (disorder) 3 [facility] (5 sources) Ampicillin; Translations: [ampicillin] Drug Allergy 1 [facility] (3 sources) Penicillins Propensity to adverse reactions to drug 6 [facility] (1 source) Penicillin G Drug Allergy 3 [facility] (1 source) Penicillins Drug Intolerance 6 [facility] Work Phone: Medications Current Medications Medication Drug [...] daily 180 tablet 1 12/23/2020 Active thyroid (correction) 90 mg oral tablet (1 source) Start: 05-13-2024 take 1 tablet by mouth once daily thyroid ([place]) 90 MG tablet Take 1 tablet by [...] Test Name Value Interpretation Reference [facility] Anion gap [Moles/Vol] 12 mmol/L 9 - 17 mmol/L [facility] Calcium [Mass/Vol] 8.9 mg/dL 8.6 - 10. 4 mg/dL [facility] Chloride [Moles/Vol] 106 mmol/L 98 - 10 7 mmol/L [facility] CO2 [Moles/Vol] 21 mmol/L 20 - 31 mmol/L [facility] Creatinine [Mass/Vol] 0.7 mg/dL 0.5 - 0.9 mg/dL [facility] Est, Glom Filt Rate - [facility] Comment on above: These results are not [...] [Mass/Vol] 96 mg/dL 70 - 99 mg/dL [facility] Potassium [Moles/Vol] 3.8 mmol/L 3.7 - 5.3 mmol/L [facility] Sodium [Moles/Vol] 139 mmol/L 135 - 144 mmol/L [facility] Urea nitrogen [Mass/Vol] 11 mg/dL 6 - 20 mg/dL [facility] Urea nitrogen/Creatinine [Mass ratio] 16 mg/mg 9 - 20 [facility] Basic Metabolic Profon 06-17 Anion gap [Moles/Vol] 12 mmol/L Normal -17 [facility] Comment on above: Performed By: #### T SIMON, PIEDAD, ADAM, KATHERINE ####[facility] [address] , [place] [address] Lab Director: Matthew May MD BUN/CRE Ratio 16 Normal 9-20 [facility] Comment on above: Performed By: #### T PIEDAD MONTES, DIME, CDP ####[address] , [place] [phone] lab Director: Matthew May MD Calcium [Mass/Vol] 8.9 mg/dL Normal 8.6-10.4 [facility] Comment on above: Performed By: #### T PIEDAD MONTES, DIME, CDP ####[address] , [place] [phone] lab Director: Matthew May MD Chloride [Moles/Vol] 106 mmol/L Normal 98-107 [facility] Comment on above: Performed By: #### T PIEDAD MONTES, DIME, CDP ####[address] , [place] [phone] Lab Director: Matthew May MD CO2 [Moles/Vol] 21 mmol/L Normal 20-31 [facility] Comment on above: Performed By: #### T PIEDAD MONTES, DIME, CDP ####[address] , [place] [phone] Lab Director: Matthew May MD Creatinine [Mass/Vol] 0.7 mg/dL Normal 0.5-0.9 [facility] Comment on above: Performed By: #### T PIEDAD MONTES, DIME, CDP ####[address] , [place] 34[address]83 Lab Director: Matthew May MD GFR/1.73 sq M.predicted among non-blacks MDRD (S/P/Bld) [Vol rate/Area] mL/min/{1.73_m2} Normal >60 [facility] Comment on above: Result Comment: These [...] By: #### T PIEDAD MONTES DIME, CDP ####[address] , [place] [phone] Director: Matthew May MD Glucose [Mass/Vol] 96 mg/dL Normal 70-99 [facility] Comment on above: Performed By: #### T PIEDAD MONTES DIME, CDP ####[address] [place] [address] Lab Director: Matthew May MD Potassium [Moles/Vol] 3.8 mmol/L Normal 3.7-5.3 [facility] Comment on above: Performed By: #### PIEDAD SARAVIA DIME, CDP ####[address] [place] [address] Lab Director: Matthew May MD Sodium [Moles/Vol] 139 mmol/L Normal 135-144 [facility] Comment on above: Performed By: #### T PIEDAD MONTES DIME, CDP ####[address] [place] [address] Lab Director: Matthew May MD Urea nitrogen [Mass/Vol] 11 mg/dL Normal 6-20 [facility] Comment on above: Performed By: #### T PIEDAD MONTES DIME, CDP ####[address] , [place] [phone] Lab Director: Matthew May MD CBC with Auto Differentialon 06-17-2024 Basophils (Bld) [#/Vol] 0.07 10*3/uL [facility] Basophils/100 WBC (Bld) 1 % 0 - 2 % [facility] Eosinophils (Bld) [#/Vol] 0.18 10*3/uL [facility] Eosinophils/100 WBC (Bld) 1 % 1 - 4 % [facility] Erythrocyte distribution width (RBC) [Ratio] 13.2 % 11.8 - 14.4 % [facility] Hematocrit (Bld) [Volume fraction] 37.6 % 36.3 - 47.1 % [facility] Hemoglobin (Bld) [Mass/Vol] 12.5 g/dL 11.9 - 15.1 g/dL [facility] Immature granulocytes (Bld) [#/Vol] 0.03 10*3/uL [facility] Immature granulocytes/100 WBC (Bld) 0 % 0 [facility] Interpretation and review of laboratory results Abnormal [facility] Lymphocytes/100 WBC (Bld) 29 % 24 - 43 % [facility] Lymphocytes/100 WBC (Bld) 3.79 % High [facility] MCH (RBC) [Entitic mass] 27.9 pg 25. 2 - 33.5 pg [facility] MCHC (RBC) [Mass/Vol] 33.2 g/dL 28.4 - 34.8 g/dL [facility] MCV (RBC) [Entitic vol] 83.9 fL 82.6 - 102.9 fL [facility] Monocytes/100 WBC (Bld) 5 % 3 - 12 % [facility] Monocytes/100 WBC (Bld) 0.69 % [facility] Neutrophils/100 WBC (Bld) 64 % 36 - 65 % [facility] Nucleated RBC/100 WBC (Bld) [Ratio] 0.0 % 0.0 per 100 WBC [facility] Platelet mean volume (Bld) [Entitic vol] 11.0 fL 8.1 - 13.5 fL [facility] Platelets (Bld) [#/Vol] 298 10*3/uL [facility] RBC (Bld) [#/Vol] 4.48 10*6/uL 3.95 - 5.1 1 m/uL [facility] Segmented neutrophils/100 WBC (Bld) 8.24 % High [facility] WBC other (Bld) [#/Vol] 13.[address] [facility] CBC with Diffon 06-17-2024 Abs. Basophil 0.07 k/uL Normal 0.00-0.20 [facility] Comment on above: Performed By: #### T PIEDAD MONTES, DIME, CDP ####[address] , [place] [address] [facility] Director: Matthew May MD Abs.Imm.Granulocyte 0.03 k/uL Normal 0.00-0.30 [facility] Comment on above: Performed By: #### T PIEDAD MONTES, DIME, CDP ####[address] [place] [address] Lab Director: Matthew May MD Abs.Neutrophil (Seg) 8.24 k/uL High 1.50-8.10 [facility] Comment on above: Performed By: #### T PIEDAD MONTES, DIME, CDP ####[address] [place] [address] Lab Director: Matthew May MD Basophils/100 WBC (Bld) 1 % Normal 0-2 [facility] Comment on above: Performed By: #### T PIEDAD MONTES, DIME, CDP ####[address] [place] [address] Lab Director: Matthew May MD Eosinophils (Bld) [#/Vol] 0.18 10*3/uL Normal 0.00-0.4 4 [facility] Comment on above: Performed By: #### T PIEDAD MONTES, DIME, CDP ####[address] , [place] [phone] Lab Director: Matthew May MD Eosinophils/100 WBC (Bld) 1 % Normal 1-4 [facility] Comment on above: Performed By: #### T ROPI, BMP, DIME, CDP ####[address] [place] [address] Lab Director: Matthew May MD Erythrocyte distribution width (RBC) [Ratio] 13.2 % Normal 11.8-14.4 [facility] Comment on above: Performed By: #### T SIMON, BMP, DIME, CDP ####[address] [place] [address] Lab Director: Matthew May MD Hematocrit (Bld) [Volume fraction] 37.6 % Normal 36.3-47.1 [facility] Comment on above: Performed By: #### T SIMON, BMP, DIME, CDP ####[address] , [facility] Lab Director: Matthew May MD Hemoglobin (Bld) [Mass/Vol] 12.5 g/dL Normal 11.9-15.1 [facility] Comment on above: Performed By: #### T SIMON, BMP, DIME, CDP ####[address] , [facility] Lab Director: Matthew May MD Immature granulocytes/100 WBC (Bld) 0 % Normal 0 [facility] Comment on above: Performed By: #### T SIMON, BMP, DIME, CDP ####[address] , [facility] Lab Director: Matthew May MD Lymphocytes (Bld) [#/Vol] 3.79 10*3/uL High 1.10-3.7 0 [facility] Comment on above: Performed By: #### T ROPI, BMP, DIME, CDP ####[address] [place] [address] Lab Director: Matthew May MD Lymphocytes/100 WBC (Bld) 29 % Normal 24-43 [facility] Comment on above: Performed By: #### T ROPSharif, BMP, DIME, CDP ####[address] , [place] [address])[phone] Director: Matthew May MD MCH (RBC) [Entitic mass] 27.9 pg Normal 25.2-33.5 [facility] Comment on above: Performed By: #### T SIMON, BMP, DIME, CDP ####[address] , [facility]83[facility])[phone] Director: Matthew May MD MCHC (RBC) [Mass/Vol] 33.2 g/dL Normal 28.4-34.8 [facility] Comment on above: Performed By: #### T ROPSharif, BMP, DIME, CDP ####[address] , [facility]83[facility])[phone] Director: Matthew May MD MCV (RBC) [Entitic vol] 83.9 fL Normal 82.6-102.9 [facility] Comment on above: Performed By: #### T SIMON, PIEDAD, DIME, CDP ####[address] , [facility]83[facility])[phone] Director: Matthew May MD Monocytes (Bld) [#/Vol] 0.69 10*3/uL Normal 0.10-1.20 [facility] Comment on above: Performed By: #### T ROPSharif, BMP, DIME, CDP ####[address] , [place] [phone] Director: Matthew May MD Monocytes/100 WBC (Bld) 5 % Normal 3-12 [facility] Comment on above: Performed By: #### T ROPSharif, BMP, DIME, CDP ####[address] , [place] 96[address]683 Lab Director: Matthew May MD Neutrophil (Seg) 64 % Normal 36-65 [facility] Comment on above: Performed By: #### T ROPSharif, BMP, DIME, CDP ####[address] , [facility]83 Lab Director: Matthew May MD NRBC Automated 0.0 per 100 WBC Normal 0.0 [facility] Comment on above: Performed By: #### T ROPSharif, BMP, DIME, CDP ####[address] , [place] [address])[phone] Director: Matthew May MD Platelet mean volume (Bld) [Entitic vol] 11.0 fL Normal 8.1-13.5 [facility] Comment on above: Performed By: #### T SIMON, BMP, DIME, CDP ####[address] , [place] [address])[phone] Director: Matthew May MD Platelets (Bld) [#/Vol] 298 10*3/uL Normal 138-453 [facility] Comment on above: Performed By: #### T SIMON, PIEDAD, DIME, CDP ####[address] , [place] [address])[phone] Director: Matthew May MD RBC (Bld) [#/Vol] 4.48 10*6/uL Normal 3.95-5.11 [facility] Comment on above: Performed By: #### T ROPI, BMP, DIME, CDP ####[address] , [place] [address])[phone] Director: Matthew May MD WBC (Bld) [#/Vol] 13.0 10*3/uL High 3.5-11.3 [facility] Comment on above: Performed By: #### T ROPSharif, BMP, DIME, CDP ####[address] , [facility]83[facility])[phone] Director: Matthew May MD CT CHEST PULMONARY [...] Matthew Gonzales MD 06/17/24 Final result Normal [facility] 1. No pulmonary emboli. 2. Minimal [...] acute subcutaneous soft tissue abnormality is seen. [facility] CONSOLID[facility] Matthew Gonzales MD - 06/17/2024 [...] pulmonary emboli. 2. Minimal gravity dependent atelectasis. [facility] Radiology Study observation (narrative) [facility] D-Dimer Teston 06-17-2024 D-Dimer Test 0.76 ug/mL FEU High 0.00-0.59 [facility] Comment on above: Result Comment: When combined [...] By: #### T SIMON, PIEDAD, ADAM, CDP ####[facility] [place] [address] lab Director: Matthew May MD D-Dimer, Quantitativeon 06-01 Fibrin D-dimer FEU (PPP) [Mass/Vol] 0.76 [facility] Comment on above: When combined with a [...] of laboratory results Abnormal [facility] Portable XR Chest AP single viewon 06-17-2024 Clear chest without acute cardiopulmonary process. [facility] EXAMINATION: ONE XRAY VIEW OF THE CHEST 06/17/2024 12:48 am COMPARISON: 12/16/2018 HISTORY: ORDERING SYSTEM PROVIDED HISTORY: sob TECHNOLOGIST PROVIDED HISTORY: sob FINDINGS: Cardiac and mediastinal silhouettes appear within normal limits for size. Pulmonary vascularity is normal. No consolidation or pleural effusion. No pneumothorax. No acute osseous abnormality is identified. [facility] Matthew Gonzales MD - 06/17/2024 EXAMINATION: ONE XRAY VIEW OF THE CHEST 06/17/2024 12:48 am COMPARISON: 12/16/2018 HISTORY: ORDERING SYSTEM PROVIDED HISTORY: sob TECHNOLOGIST PROVIDED HISTORY: sob FINDINGS: Cardiac and mediastinal silhouettes appear within normal limits for size. Pulmonary vascularity is normal. No consolidation or pleural effusion. No pneumothorax. No acute osseous abnormality is identified. IMPRESSION: Clear chest without acute cardiopulmonary process. [facility] Radiology Study observation (narrative) [facility] Portable XR Chest AP single viewOrdered By: Matthew Gonzales on 06-17-2024 [facility] Work Phone: Troponinon 06-17-2024 Troponin I.cardiac High sensitivity method [Mass/Vol] ng/L 0 - 14 ng/L [facility] Comment on above: High Sensitivity Tro ponin values cannot be compared with other Troponin methodologies. [facility] Troponin, High Sens <6 Normal 0-14 [facility] Comment on above: Result Comment: High Sensitivity Troponin values cannot be compared with other Troponin methodologies. Performed By: #### T PIEDAD MONTES, ADAM, CDP ####[facility] [place] [address] lab Director: Matthew May MD XR [...] Matthew Gonzales MD 06/17/24 Final result Normal [facility] Food,Common Adult Pron 04-07 Clam IgE <0.10 Normal 0.00-0.34 [facility] Comment on above: Performed By: #### L IP, CP, SAVITA, CDP ####[address] [place] [phone] Lab Director: Matthew May MD#### CELP, ICADL ####[address] [phone] Lab Director: David Arzate MD Codfish IgE <0.10 Normal 0.00-0.34 [facility] Comment on above: Performed By: #### L IP, CP, SAVITA, CDP ####[address] [place] [phone] Lab Director: Matthew May MD#### CELP, ICADL ####[address] [phone] Lab Director: David Arzate MD Balsam IgE <0.10 Normal 0.00-0.34 [facility] Comment on above: Performed By: #### L IP, CP, SAVITA, CDP ####[address] [place] [phone] Lab Director: Matthew May MD#### CELP, ICADL ####[facility] [address] [place], [place] 546[address] Lab Director: David Arzate MD Egg, Whole IgE <0.10 Normal 0.00-0.34 [facility] Comment on above: Performed By: #### L IP, CP, SAVITA, CDP ####[address] , [place] 715[address]83 Lab Director: Matthew May MD#### CELP, ICADL ####[address] [phone] Lab Director: David Arzate MD Milk (Cow) IgE <0.10 Normal 0.00-0.34 [facility] Comment on above: Performed By: #### L IP, CP, SAVITA, CDP ####[address] [place], [place] [address]83 Lab Director: Matthew May MD#### CELP, ICADL ####[address] [phone] Lab Director: David Arzate MD Peanut IgE <0.10 Normal 0.00-0.34 [facility] Comment on above: Performed By: #### L IP, CP, SAVITA, CDP ####[address] [place], [place] 3799[address] Lab Director: Matthew May MD#### CELP, ICADL ####[address] [phone] Lab Director: David Arzate MD Scallop IgE <0.10 Normal 0.00-0.34 [facility] Comment on above: Performed By: #### L IP, CP, SAVITA, CDP ####[address] [place], [place] 2633583 Lab Director: Matthew May MD#### CELP, ICADL ####[address] [phone] Lab Director: David Arzate MD Shrimp IgE <0.10 Normal 0.00-0.34 [facility] Comment on above: Performed By: #### L IP, CP, SAVITA, CDP ####[address] [place], [place] [phone] Lab Director: Matthew May MD#### CELP, ICADL ####[place] [address] [place], [place] [phone] Lab Director: David Arzate MD Soybean IgE <0.10 Normal 0.00-0.34 [facility] Comment on above: Performed By: #### L IP, CP, SAVITA, CDP ####[address] [place], [place] 5[address]83 Lab Director: Matthew May MD#### CELP, ICADL ####[place] [address] [place], [place] 3767708 Lab Director: David Arzate MD [place]/Bl.[place] IgE <0.10 Normal 0.00-0.34 [facility] Comment on above: Result Comment: ALLERGEN, INTERP, [...] By: #### L IP, CP, SAVITA, CDP ####[address] [place], [place] 9597383 Lab Director: Matthew May MD#### CELP, ICADL ####[place] [address] [place], [place] 365[address]108 Lab Director: David Arzate MD Wheat IgE <0.10 Normal 0.00-0.34 [facility] Comment on above: Performed By: #### L IP, CP, SAVITA, CDP ####[address] [place] [address] [facility] Director: Matthew May MD#### CELP, ICADL ####[address] [phone] [facility] Director: David Arzate MD Celiac Disease Panelon 04-06 Gliadin Deam Pep IgA 1.2 U/mL Normal <7.0 [facility] Comment on above: Result Comment: CELIAC INTERPRETATION <7.0 Negative 7.0-10.0 Equivocal >10.0 Positive units: U/mL Performed By: #### L IP, CP, SAVITA, CDP #### [address] [place] [phone] Director Business Intelligence: Matthew May MD #### CELP, ICADL #### [facility] [address] [place], [place] [phone] Director Business Intelligence: David Arzate MD Gliadin Deam Pep IgG <0.4 Normal <7.0 [facility] Comment on above: Result Comment: CELIAC INTERPRETATION <7.0 Negative 7.0-10.0 Equivocal >10.0 Positive units: U/mL Performed By: #### L IP, CP, SAVITA, CDP #### [address] [place] [address] Director Business Intelligence: Matthew May MD #### CELP, ICADL #### [place] [address] [place], [place] [phone] Director Business Intelligence: David Arzate MD Tiss Transglutam IgA 0.4 U/mL Normal <7.0 [facility] Comment on above: Result Comment: CELIAC INTERPRETATION <7.0 Negative 7.0-10.0 Equivocal >10.0 Positive units: U/mL Performed By: #### L IP, CP, SAVITA, CDP #### [address] [place], [place] 0368883 Director Business Intelligence: Matthew May MD #### CELP, ICADL #### [place] [address] [place], [place] [phone] Director Business Intelligence: David Arzate MD Celiac Disease Panelon 04-04 IgA [Mass/Vol] 160 mg/dL Normal 70-400 [facility] Comment on above: Performed By: #### L IP, CP, SAVITA, CDP #### [address] [place], [place] [phone] Director Business Intelligence: Matthew May MD #### CELP, ICADL #### [address] [phone] Director Business Intelligence: David Arzate MD Food,Common Adult Pron 04-04 Immunoglobulin E 40 IU/mL Normal 0-100 [facility] Comment on above: Performed By: #### L IP, CP, SAVITA, CDP ####[address] , [place] 14[address] Lab Director: Matthew May MD#### CELP, ICADL ####[address] [phone] Lab Director: David Arzate MD Lipid Profileon 04-04-2024 Cholesterol [Mass/Vol] 245 mg/dL High 0-199 [facility] Comment on above: Result Comment: Cholesterol Guidelines: <200 Desirable 200-240 Borderline >240 Undesirable Performed By: #### T SH ####[address] , [place] 167[address]83 Lab Director: Matthew May MD#### GLYHGB, LIPR ####[place] [address] [place], [place] 4554908 Lab Director: David Arzate MD Cholesterol in HDL [Mass/Vol] 47 mg/dL Normal >40 [facility] Comment on above: Result Comment: HDL Guidelines: <40 Undesirable 40-59 Borderline >59 Desirable Performed By: #### T SH ####[address] [place] [address] Lab Director: Matthew May MD#### GLYHGB, LIPR ####[place] [address] [place] [address] Lab Director: David Arzate MD Cholesterol in LDL [Mass/Vol] 157 mg/dL High 0-100 [facility] Comment on above: Result Comment: LDL Guidelines: <100 Desirable 100-129 Near to/above Desirable 130-159 Borderline >159 Undesirable Direct (measured) LDL and calculated LDL are not interchangeable tests. Performed By: #### T SH ####[address] [place] [address] Lab Director: Matthew May MD#### GLYHGB, LIPR ####[place] [address] [place] [address] Lab Director: David Arzate MD Cholesterol in VLDL [Mass/Vol] 41 mg/dL Normal [facility] Comment on above: Performed By: #### T SH ####[address] [place] [address] Lab Director: Matthew May MD#### GLYHGB, LIPR ####[place] [address] [place] [address] Lab Director: David Arzate MD Cholesterol.total/Cholest deni in HDL [Mass ratio] 5.0 {ratio} Normal [facility] Comment on above: Performed By: #### T SH ####[address] [place] [address] Lab Director: Matthew May MD#### GLYHGB, LIPR ####[place] [address] [place] [address] Lab Director: David Arzate MD Triglyceride [Mass/Vol] 204 mg/dL High <150 M [facility] Comment on above: Result Comment: Triglyceride Guidelines: <150 Desirable 150-199 Borderline 200-499 High >499 Very high Based on AHA Guidelines for fasting triglyceride, September 2012. Performed By: #### T SH ####[address] [place], [place] 320[address]83 Lab Director: Matthew May MD#### GLYHGB, LIPR ####[address] [address] Lab Director: David Arzate MD Thyroxine, Freeon 04-04-2024 Thyroxine, Free 0.7 ng/dL Low 0.92-1.68 [facility] Comment on above: Performed By: #### F T4 ####[address] [address])[phone] Director: David Arzate MD Amylaseon 04-03-2024 Amylase [Catalytic activity/Vol] 28 U/L Normal 28-100 [facility] Comment on above: Performed By: #### L IP, CP, SAVITA, CDP #### [address] [place], [place] 999[address]83 Director Business Intelligence: Matthew May MD #### CELP, ICADL #### [address] [address] Director Business Intelligence: David Arzate MD CBC with Diffon 04-03-2024 Abs. Basophil 0.04 k/uL Normal 0.00-0.20 [facility] Comment on above: Performed By: #### L IP, CP, SAVITA, CDP #### [facility] [address] [place] [address] [address] [place], [place] [phone] Director Business Intelligence: Matthew May MD #### CELP, ICADL #### [address] [phone] Director Business Intelligence: David Arzate MD Abs.Imm.Granulocyte 0.03 k/uL Normal 0.00-0.30 [facility] Comment on above: Performed By: #### L IP, CP, SAVITA, CDP #### [address] [place] [phone] Director Business Intelligence: Matthew May MD #### CELP, ICADL #### [place] [phone] Director Business Intelligence: David Arzate MD Abs.Neutrophil (Seg) 5.98 k/uL Normal 1.50-8.10 [facility] Comment on above: Performed By: #### L IP, CP, SAVITA, CDP #### [address] [place] [address] Director Business Intelligence: Matthew May MD #### CELP, ICADL #### [place] [address] Director Business Intelligence: David Arzate MD Basophils/100 WBC (Bld) 1 % Normal 0-2 [facility] Comment on above: Performed By: #### L IP, CP, SAVITA, CDP #### [address] [place] [phone] Director Business Intelligence: Matthew May MD #### CELP, ICADL #### [place] [address] Director Business Intelligence: David Arzate MD Eosinophils (Bld) [#/Vol] 0.16 10*3/uL Normal 0.00-0.4 4 [facility] Comment on above: Performed By: #### L IP, CP, SAVITA, CDP #### [address] [place] [phone] Director Business Intelligence: Matthew May MD #### CELP, ICADL #### [address] [phone] Director Business Intelligence: David Arzate MD Eosinophils/100 WBC (Bld) 2 % Normal 1-4 [facility] Comment on above: Performed By: #### L IP, CP, SAVITA, CDP #### [address] [place] [phone] Director Business Intelligence: Matthew May MD #### CELP, ICADL #### [address] [phone] Director Business Intelligence: David Arzate MD Erythrocyte distribution width (RBC) [Ratio] 14.1 % Normal 11.8-14.4 [facility] Comment on above: Performed By: #### L IP, CP, SAVITA, CDP #### [address] [place] [phone] Director Business Intelligence: Matthew May MD #### CELP, ICADL #### [address] [phone] Director Business Intelligence: David Arzate MD Hematocrit (Bld) [Volume fraction] 40.4 % Normal 36.3-47.1 [facility] Comment on above: Performed By: #### L IP, CP, SAVITA, CDP #### [address] [place] [phone] Director Business Intelligence: Matthew May MD #### CELP, ICADL #### [address] [phone] Director Business Intelligence: David Arzate MD Hemoglobin (Bld) [Mass/Vol] 13.4 g/dL Normal 11.9-15.1 [facility] Comment on above: Performed By: #### L IP, CP, SAVITA, CDP #### [address] [place] [phone] Director Business Intelligence: Matthew May MD #### CELP, ICADL #### [place] [phone] Director Business Intelligence: David Arzate MD Immature granulocytes/100 WBC (Bld) 0 % Normal 0 [facility] Comment on above: Performed By: #### L IP, CP, SAVITA, CDP #### [address] [place] [phone] ( Director Business Intelligence: Matthew May MD #### CELP, ICADL #### [place] [address] Director Business Intelligence: David Arzate MD Lymphocytes (Bld) [#/Vol] 2.24 10*3/uL Normal 1.10-3.7 0 [facility] Comment on above: Performed By: #### L IP, CP, SAVITA, CDP #### [address] [place] [phone] ( Director Business Intelligence: Matthew May MD #### CELP, ICADL #### [place] [address] Director Business Intelligence: David Arzate MD Lymphocytes/100 WBC (Bld) 25 % Normal 24-43 [facility] Comment on above: Performed By: #### L IP, CP, SAVITA, CDP #### [address] [place] [phone] Director Business Intelligence: Matthew May MD #### CELP, ICADL #### [place] [address] Director Business Intelligence: David Arzate MD MCH (RBC) [Entitic mass] 27.6 pg Normal 25.2-33.5 [facility] Comment on above: Performed By: #### L IP, CP, SAVITA, CDP #### [address] [place] [phone] Director Business Intelligence: Matthew May MD #### CELP, ICADL #### [place] [address] Director Business Intelligence: David Arzate MD MCHC (RBC) [Mass/Vol] 33.2 g/dL Normal 28.4-34.8 [facility] Comment on above: Performed By: #### L IP CP, SAVITA, CDP #### [address] [place] [phone] Director Business Intelligence: Matthew May MD #### CELP, ICADL #### [place] [address] Director Business Intelligence: David Arzate MD MCV (RBC) [Entitic vol] 83.3 fL Normal 82.6-102.9 [facility] Comment on above: Performed By: #### L XENA LEE, SAVITA, CDP #### [address] [place] [phone] Director Business Intelligence: Matthew May MD #### CELJeff, ICADL #### [place] [address] Director Business Intelligence: David Arzate MD Monocytes (Bld) [#/Vol] 0.40 10*3/uL Normal 0.10-1.20 [facility] Comment on above: Performed By: #### L JESUS CP, SAVITA, CDP #### [address] [place] [phone] Director Business Intelligence: Matthew May MD #### CELP, ICADL #### [place] [address] Director Business Intelligence: David Arzate MD Monocytes/100 WBC (Bld) 5 % Normal 3-12 M [facility] Comment on above: Performed By: #### L IP CP, SAVITA, CDP #### [address] [place], [place] [phone] Director Business Intelligence: Matthew May MD #### CELP, ICADL #### [address] [phone] Director Business Intelligence: David Arzate MD Neutrophil (Seg) 67 % High 36-65 [facility] Comment on above: Performed By: #### L IP, CP, SAVITA, CDP #### [address] [place] [address] Director Business Intelligence: Matthew May MD #### CELP, ICADL #### [address] [phone] Director Business Intelligence: David Arzate MD NRBC Automated 0.0 per 100 WBC Normal 0.0 [facility] Comment on above: Performed By: #### L IPXENA, SAVITA, CDP #### [address] [place] [phone] Director Business Intelligence: Matthew May MD #### CELP, ICADL #### [address] [phone] Director Business Intelligence: David Arzate MD Platelet mean volume (Bld) [Entitic vol] 10.8 fL Normal 8.1-13.5 [facility] Comment on above: Performed By: #### L IP CP, SAVITA, CDP #### [address] [place] [address] Director Business Intelligence: Matthew May MD #### CELP, ICADL #### [address] [phone] Director Business Intelligence: David Arzate MD Platelets (Bld) [#/Vol] 271 10*3/uL Normal 138-453 [facility] Comment on above: Performed By: #### L IP, CP, SAVITA, CDP #### [facility] [address] [place], [place] [phone] Director Business Intelligence: Matthew May MD #### CELP, ICADL #### [place] 072432 [place] [address] Director Business Intelligence: David Arzate MD RBC (Bld) [#/Vol] 4.85 10*6/uL Normal 3.95-5.11 [facility] Comment on above: Performed By: #### L IP, CP, SAVITA, CDP #### [address] [place], [place] [phone] Director Business Intelligence: Matthew May MD #### CELP, ICADL #### [address] [address] Director Business Intelligence: David Arzate MD WBC (Bld) [#/Vol] 8.9 10*3/uL Normal 3.5-11.3 [facility] Comment on above: Performed By: #### L IP, CP, SAVITA, CDP #### [address] [place], [place] 1850883 Director Business Intelligence: Matthew May MD #### CELP, ICADL #### [address] [address] Director Business Intelligence: David Arzate MD Comp Metabolic Profon 2023 Albumin [Mass/Vol] 4.0 g/dL Normal 3.5-5.2 [facility] Comment on above: Performed By: #### L IP, CP, SAVITA, CDP #### [address] [place] [address] Director Business Intelligence: Matthew May MD #### CELP, ICADL #### [place] 072431 [place] [address] Director Business Intelligence: David Arzate MD Albumin/Glob Ratio 1.2 Normal 1.0-2.5 [facility] Comment on above: Performed By: #### L IP, CP, SAVITA, CDP #### [facility] [address] [place] [phone] Director Business Intelligence: Matthew May MD #### CELP, ICADL #### [address] [phone] Director Business Intelligence: David Arzate MD Alkaline Phos 98 U/L Normal 35-104 [facility] Comment on above: Performed By: #### L IP, CP, SAVITA, CDP #### [facility] [address] [place] [phone] Director Business Intelligence: Matthew May MD #### CELP, ICADL #### [address] [phone] Director Business Intelligence: David Arzate MD ALT [Catalytic activity/Vol] 11 U/L Normal 5-33 [facility] Comment on above: Performed By: #### L IP, CP, SAVITA, CDP #### [facility] [address] [place] [address] Dr. [place] [phone] Director Business Intelligence: Matthew May MD #### CELP, ICADL #### [address] [address] Director Business Intelligence: David Arzate MD Anion gap [Moles/Vol] 11 mmol/L Normal 9-17 [facility] Comment on above: Performed By: #### L IP, CP, SAVITA, CDP #### [address] [place], [place] [phone] Director Business Intelligence: Matthew May MD #### CELP, ICADL #### [address] [address] Director Business Intelligence: David Arzate MD AST [Catalytic activity/Vol] 14 U/L Normal <32 [facility] Comment on above: Performed By: #### L IP, CP, SAVITA, CDP #### [facility] [address] [place] [address] Director Business Intelligence: Matthew May MD #### CELP, ICADL #### [address] [phone] Director Business Intelligence: David Arzate MD Bilirubin [Mass/Vol] 0.2 mg/dL Low 0.3-1.2 [facility] Comment on above: Performed By: #### L IP, CP, SAVITA, CDP #### [facility] [address] [place] [address] Director Business Intelligence: Matthew May MD #### CELP, ICADL #### [address] [phone] Director Business Intelligence: David Arzate MD BUN/CRE Ratio 10 Normal 9-20 [facility] Comment on above: Performed By: #### L IP, CP, SAVITA, CDP #### [facility] [address] [place] [address] Director Business Intelligence: Matthew May MD #### CELP, ICADL #### [address] [phone] Director Business Intelligence: David Arzate MD Calcium [Mass/Vol] 9.4 mg/dL Normal 8.6-10.4 [facility] Comment on above: Performed By: #### L IP, CP, SAVITA, CDP #### [facility] [address] [place] [address] Director Business Intelligence: Matthew May MD #### CELP, ICADL #### [address] [phone] Director Business Intelligence: David Arzate MD Chloride [Moles/Vol] 103 mmol/L Normal 98-107 [facility] Comment on above: Performed By: #### L IP, CP, SAVITA, CDP #### [facility] [address] [place] [address] Director Business Intelligence: Matthew May MD #### CELP, ICADL #### [address] [phone] Director Business Intelligence: David Arzate MD CO2 [Moles/Vol] 23 mmol/L Normal 20-31 [facility] Comment on above: Performed By: #### L IP, CP, SAVITA, CDP #### [facility] [address] [place] [address] Director Business Intelligence: Matthew May MD #### CELJeff, ICADL #### [place] [address]2433 [place], [place] [phone] Director Business Intelligence: David Arzate MD Creatinine [Mass/Vol] 0.9 mg/dL Normal 0.5-0.9 [facility] Comment on above: Performed By: #### L IP, CP, SAVITA, CDP #### [facility] [address] [place], [place] [phone] Director Business Intelligence: Matthew May MD #### CELP, ICADL #### [address] [phone] Director Business Intelligence: David Arzate MD GFR/1.73 sq M.predicted among non-blacks MDRD (S/P/Bld) [Vol rate/Area] 89 mL/min/{1.73_m2} Normal >60 [facility] Comment on above: Result Comment: These [...] #### L IP, CP, SAVITA, CDP #### [address] [place], [place] [phone] Director Business Intelligence: Matthew May MD #### CELP, ICADL #### [place] [address]2434 [place], [place] [phone] Director Business Intelligence: David Arzate MD Glucose [Mass/Vol] 88 mg/dL Normal 70-99 [facility] Comment on above: Performed By: #### L IP, CP, SAVITA, CDP #### [facility] [address] [place] [address] [place], [place] [phone] Director Business Intelligence: Matthew May MD #### CELP, ICADL #### [address] [phone] Director Business Intelligence: David Arzate MD Potassium [Moles/Vol] 4.2 mmol/L Normal 3.7-5.3 [facility] Comment on above: Performed By: #### L IP, CP, SAVITA, CDP #### [address] [place], [place] [phone] Director Business Intelligence: Matthew May MD #### CELP, ICADL #### [address] [phone] Director Business Intelligence: David Arzate MD Protein [Mass/Vol] 7.3 g/dL Normal 6.4-8.3 [facility] Comment on above: Performed By: #### L IP, CP, SAVITA, CDP #### [facility] [address] [place] [address] [place], [place] [phone] Director Business Intelligence: Matthew May MD #### CELP, ICADL #### [address] [phone] Director Business Intelligence: David Arzate MD Sodium [Moles/Vol] 137 mmol/L Normal 135-144 [facility] Comment on above: Performed By: #### L IP, CP, SAVITA, CDP #### [facility] [address] [place] [address] Director Business Intelligence: Matthew May MD #### CELP, ICADL #### [facility] [address] [place] [address] Director Business Intelligence: David Arzate MD Urea nitrogen [Mass/Vol] 9 mg/dL Normal 6-20 [facility] Comment on above: Performed By: #### L IP, CP, SAVITA, CDP #### [facility] [address] [place] [address] Director Business Intelligence: Matthew May MD #### CELP, ICADL #### [facility] [address] [place] [address] Director Business Intelligence: David Arzate MD Hemoglobin A1Con 04-03-2024 Glucose [Mass/Vol] 103 mg/dL Normal [facility] Comment on above: Result Comment: The ADA and AACC recommend providing the estimated average glucose result to permit better patient understanding of their HBA1c result. Performed By: #### T SH ####[facility] , [place] [phone] Lab Director: Matthew May MD#### GLYHGB, LIPR ####[facility] [place], [place] [phone] Director: David Arzate MD HbA1c (Bld) [Mass fraction] 5.2 % Normal 4.0-6.0 [facility] Comment on above: Performed By: #### T SH ####[facility] , [place] [phone] Lab Director: Matthew May MD#### GLYHGB, LIPR ####[facility] [place], [place] [phone] Director: David Arzate MD Lipaseon 04-03-2024 Lipase [Catalytic activity/Vol] 37 U/L Normal 13-60 [facility] Comment on above: Performed By: #### L IP, CP, SAVITA, CDP #### [facility] [address] [place] [address] Director Business Intelligence: Matthew May MD #### CELP, ICADL #### [place] [address]24[address] [place], [place] [phone] Director Business Intelligence: David Arzate MD Thyroid Stim. Horm.on 2023 Thyroid Stim. Horm. 32.92 uIU/mL High 0.30-5.00 [facility] Comment on above: Performed By: #### T SH ####[facility] [place] [address] Lab Director: Matthew May MD#### GLYHGB, LIPR ####[place] [address] [place], [place] [id number] Lab Director: David Arzate MD No Panel Informationon 02-17 Tobacco smoking status Former Tobacco User Inval id Interpretation Code LopezSIGKAT XR CERVICAL SPINE (2-3 VIEWS )on 02-08-2024 [...] Aj Mullins MD 02/08/24 Final result Normal [facility] Acetaminophenon 12-13-2023 Acetaminophen [Mass/Vol] 9 ug/mL Low 10-30 [facility] Comment on above: Performed By: #### F T4 #### [address] [address] Director Business Intelligence: David Arzate MD #### TSH #### [facility] [address] [place] [address] [place] [address] ( Director Business Intelligence: Matthew May MD CBC with Diffon 12-13-2023 Abs. Basophil 0.06 k/uL Normal 0.00-0.20 [facility] Comment on above: Performed By: #### F T4 #### [address] [address] Director Business Intelligence: David Arzate MD #### TSH #### [address] [place] [phone] ( Director Business Intelligence: Matthew May MD Abs.Imm.Granulocyte 0.06 k/uL Normal 0.00-0.30 [facility] Comment on above: Performed By: #### F T4 #### [address] [address] Director Business Intelligence: David Arzate MD #### TSH #### [address] [place] [phone] ( Director Business Intelligence: Matthew May MD Abs.Neutrophil (Seg) 12.10 k/uL High 1.50-8.10 [facility] Comment on above: Performed By: #### F T4 #### [address] [address] Director Business Intelligence: David Arzate MD #### TSH #### [facility] [address] [place] [address] Dr. [place] [phone] Director Business Intelligence: Matthew May MD Basophils/100 WBC (Bld) 0 % Normal 0-2 M [facility] Comment on above: Performed By: #### F T4 #### [address] [address] Director Business Intelligence: David Arzate MD #### TSH #### [address] [place], [place] [phone] Director Business Intelligence: Matthew May MD Eosinophils (Bld) [#/Vol] 0.20 10*3/uL Normal 0.00-0.4 4 [facility] Comment on above: Performed By: #### F T4 #### [address] [address] Director Business Intelligence: David Arzate MD #### TSH #### [address] [place], [place] 2242583 Director Business Intelligence: Matthew May MD Eosinophils/100 WBC (Bld) 1 % Normal 1-4 [facility] Comment on above: Performed By: #### F T4 #### [address] [address] Director Business Intelligence: David Arzate MD #### TSH #### [address] [place] [phone] Director Business Intelligence: Matthew May MD Erythrocyte distribution width (RBC) [Ratio] 14.5 % High 11.8-14.4 [facility] Comment on above: Performed By: #### F T4 #### [address] [address] Director Business Intelligence: David Arzate MD #### TSH #### [address] [place] [phone] Director Business Intelligence: Matthew May MD Hematocrit (Bld) [Volume fraction] 40.4 % Normal 36.3-47.1 [facility] Comment on above: Performed By: #### F T4 #### [address] [address] Director Business Intelligence: David Arzate MD #### TSH #### [address] [place] [phone] Director Business Intelligence: Matthew May MD Hemoglobin (Bld) [Mass/Vol] 13.2 g/dL Normal 11.9-15.1 [facility] Comment on above: Performed By: #### F T4 #### [place] [address]24[address] [place] [address] Director Business Intelligence: David Arzate MD #### TSH #### [address] [place] [phone] Director Business Intelligence: Mattehw May MD Immature granulocytes/100 WBC (Bld) 0 % Normal 0 [facility] Comment on above: Performed By: #### F T4 #### [address] [address] Director Business Intelligence: David Arzate MD #### TSH #### [address] [place] [address] Director Business Intelligence: Matthew May MD Lymphocytes (Bld) [#/Vol] 2.93 10*3/uL Normal 1.10-3.7 0 [facility] Comment on above: Performed By: #### F T4 #### [address] [address] Director Business Intelligence: David Arzate MD #### TSH #### [address] [place] [address] Director Business Intelligence: Matthew May MD Lymphocytes/100 WBC (Bld) 18 % Low 24-43 [facility] Comment on above: Performed By: #### F T4 #### [address] [address] Director Business Intelligence: David Arzate MD #### TSH #### [address] [place] [phone] Director Business Intelligence: Matthew May MD MCH (RBC) [Entitic mass] 27.2 pg Normal 25.2-33.5 [facility] Comment on above: Performed By: #### F T4 #### [address] [address] Director Business Intelligence: David Arzate MD #### TSH #### [facility] [address] [place] [address] Dr. [place], [place] [phone] Director Business Intelligence: Matthew May MD MCHC (RBC) [Mass/Vol] 32.7 g/dL Normal 28.4-34.8 [facility] Comment on above: Performed By: #### F T4 #### [address] [address] Director Business Intelligence: David Arzate MD #### TSH #### [facility] [address] [place] [address] Dr. [place] [phone] Director Business Intelligence: Matthew May MD MCV (RBC) [Entitic vol] 83.1 fL Normal 82.6-102.9 [facility] Comment on above: Performed By: #### F T4 #### [address] [address] Director Business Intelligence: David Arzate MD #### TSH #### [facility] [address] [place] [address] Dr. [place] [phone] Director Business Intelligence: Matthew May MD Monocytes (Bld) [#/Vol] 1.00 10*3/uL Normal 0.10-1.20 [facility] Comment on above: Performed By: #### F T4 #### [address] [address] Director Business Intelligence: David Arzate MD #### TSH #### [facility] [address] [place] [address] Dr. [place], [place] [phone] Director Business Intelligence: Matthew May MD Monocytes/100 WBC (Bld) 6 % Normal 3-12 M [facility] Comment on above: Performed By: #### F T4 #### [address] [address] Director Business Intelligence: David Arzate MD #### TSH #### [facility] [address] [place] [address] Dr. [place], [place] [phone] Director Business Intelligence: Matthew May MD Neutrophil (Seg) 75 % High 36-65 [facility] Comment on above: Performed By: #### F T4 #### [address] [address] Director Business Intelligence: David Arzate MD #### TSH #### [address] [place] [phone] Director Business Intelligence: Matthew May MD NRBC Automated 0.0 per 100 WBC Normal 0.0 [facility] Comment on above: Performed By: #### F T4 #### [address] [address] Director Business Intelligence: David Arzate MD #### TSH #### [facility] [address] [place] [address] Dr. [place] [facility]83 Director Business Intelligence: Matthew May MD Platelet mean volume (Bld) [Entitic vol] 10.8 fL Normal 8.1-13.5 [facility] Comment on above: Performed By: #### F T4 #### [address] [address] Director Business Intelligence: David rAzate MD #### TSH #### [facility] [address] [place] [address] Dr. [place] [facility]83 Director Business Intelligence: Matthew May MD Platelets (Bld) [#/Vol] 295 10*3/uL Normal 138-453 [facility] Comment on above: Performed By: #### F T4 #### [address] [address] Director Business Intelligence: David Arzate MD #### TSH #### [facility] [address] [place], [place] [phone] Director Business Intelligence: Matthew May MD RBC (Bld) [#/Vol] 4.86 10*6/uL Normal 3.95-5.11 [facility] Comment on above: Performed By: #### F T4 #### [address] [address] Director Business Intelligence: David Arzate MD #### TSH #### [facility] [address] [place], [place] 8086183 Director Business Intelligence: Matthew May MD WBC (Bld) [#/Vol] 16.4 10*3/uL High 3.5-11.3 [facility] Comment on above: Performed By: #### F T4 #### [address] [address] Director Business Intelligence: David Arzate MD #### TSH #### [facility] [address] [place], [place] [phone] Director Business Intelligence: Matthew May MD Comp Metabolic Profon 2023 Albumin [Mass/Vol] 3.8 g/dL Normal 3.5-5.2 [facility] Comment on above: Performed By: #### F T4 #### [address] [address] Director Business Intelligence: David Arzate MD #### TSH #### [facility] [address] [place], [place] [phone] Director Business Intelligence: Matthew May MD Albumin/Glob Ratio 1.0 Normal 1.0-2.5 [facility] Comment on above: Performed By: #### F T4 #### [address] [address] Director Business Intelligence: David Arzate MD #### TSH #### [facility] Lab [address] [place] [address] Director Business Intelligence: Matthew May MD Alkaline Phos 101 U/L Normal 35-104 [facility] Comment on above: Performed By: #### F T4 #### [facility] [address] [place] [address] Director Business Intelligence: David Arzate MD #### TSH #### [address] [place], [place] [id number] Director Business Intelligence: Matthew May MD ALT [Catalytic activity/Vol] 7 U/L Normal 5-33 [facility] Comment on above: Performed By: #### F T4 #### [address] [place] [address] Director Business Intelligence: David Arzate MD #### TSH #### [address] [place], [place] [id number] Director Business Intelligence: Matthew May MD Anion gap [Moles/Vol] 13 mmol/L Normal 9-17 [facility] Comment on above: Performed By: #### F T4 #### [address] [address] Director Business Intelligence: David Arzate MD #### TSH #### [address] [place], [place] [id number] Director Business Intelligence: Matthew May MD AST [Catalytic activity/Vol] 13 U/L Normal <32 [facility] Comment on above: Performed By: #### F T4 #### [address] [address] Director Business Intelligence: David Arzate MD #### TSH #### [address] [place] [address] Director Business Intelligence: Matthew May MD Bilirubin [Mass/Vol] 0.2 mg/dL Low 0.3-1.2 [facility] Comment on above: Performed By: #### F T4 #### [address] [place] [address] Director Business Intelligence: David Arzate MD #### TSH #### [facility] Lab [address] [place], [place] [id number] Director Business Intelligence: Matthew May MD BUN/CRE Ratio 10 Normal 9-20 [facility] Comment on above: Performed By: #### F T4 #### [address] [address] Director Business Intelligence: David Arzaet MD #### TSH #### [facility] Lab [address] [place], [place] [id number] Director Business Intelligence: Matthew May MD Calcium [Mass/Vol] 9.3 mg/dL Normal 8.6-10.4 [facility] Comment on above: Performed By: #### F T4 #### [address] [address] Director Business Intelligence: David Arzate MD #### TSH #### [facility] Lab [address] [place], [place] [id number] Director Business Intelligence: Matthew May MD Chloride [Moles/Vol] 100 mmol/L Normal 98-107 [facility] Comment on above: Performed By: #### F T4 #### [address] [address] Director Business Intelligence: David Arzate MD #### TSH #### [facility] [address] [place], [place] [phone] Director Business Intelligence: Matthew May MD CO2 [Moles/Vol] 21 mmol/L Normal 20-31 [facility] Comment on above: Performed By: #### F T4 #### [address] [address] Director Business Intelligence: David Arzate MD #### TSH #### [facility] [address] [place] [address] [place] [address] Director Business Intelligence: Matthew May MD Creatinine [Mass/Vol] 0.9 mg/dL Normal 0.5-0.9 [facility] Comment on above: Performed By: #### F T4 #### [address] [address] Director Business Intelligence: David Arzate MD #### TSH #### [facility] [address] [place] [address] [place] [address] Director Business Intelligence: Matthew May MD GFR/1.73 sq M.predicted among non-blacks MDRD (S/P/Bld) [Vol rate/Area] mL/min/{1.73_m2} Normal >60 [facility] Comment on above: Result Comment: These [...] secretion. Performed By: #### F T4 #### [address] [address] Director Business Intelligence: David Arzate MD #### TSH #### [facility] [address] [place] [address] [place] [address] Director Business Intelligence: Matthew May MD Glucose [Mass/Vol] 88 mg/dL Normal 70-99 [facility] Comment on above: Performed By: #### F T4 #### [address] [address] Director Business Intelligence: David Arzate MD #### TSH #### [facility] [address] [place] [address] [place] [address] Director Business Intelligence: Matthew May MD Potassium [Moles/Vol] 3.5 mmol/L Low 3.7-5.3 [facility] Comment on above: Performed By: #### F T4 #### [facility] [address] [place] [address] Director Business Intelligence: David Arzate MD #### TSH #### [facility] [address] [place] [address] Dr. [place], [place] [id number] Director Business Intelligence: Matthew May MD Protein [Mass/Vol] 7.6 g/dL Normal 6.4-8.3 [facility] Comment on above: Performed By: #### F T4 #### [address] [address] Director Business Intelligence: David Arzate MD #### TSH #### [facility] [address] [place] [address] Dr. [place], [place] [phone] Director Business Intelligence: Matthew May MD Sodium [Moles/Vol] 134 mmol/L Low 135-144 [facility] Comment on above: Performed By: #### F T4 #### [address] [address] Director Business Intelligence: David Arzate MD #### TSH #### [address] [place] [id number] Director Business Intelligence: Matthew May MD Urea nitrogen [Mass/Vol] 9 mg/dL Normal 6-20 [facility] Comment on above: Performed By: #### F T4 #### [address] [address] Director Business Intelligence: David Arzate MD #### TSH #### [facility] [address] [place] [address] [place] [address] Director Business Intelligence: Matthew May MD Basic Metabolic Profon 07-12 Anion gap [Moles/Vol] 13 mmol/L Normal 9-17 [facility] Comment on above: Performed By: #### B MP #### [facility] [address] [place], [place] [id number] Director Business Intelligence: Matthew May MD BUN/CRE Ratio 16 Normal 9-20 [facility] Comment on above: Performed By: #### B MP #### [facility] [address] [place], [place] 5295983 Director Business Intelligence: Matthew May MD Calcium [Mass/Vol] 9.7 mg/dL Normal 8.6-10.4 [facility] Comment on above: Performed By: #### B MP #### [facility] [address] [place], [place] 6662783 Director Business Intelligence: Matthew May MD Chloride [Moles/Vol] 103 mmol/L Normal 98-107 [facility] Comment on above: Performed By: #### B MP #### [facility] [address] [place], [place] [phone] Director Business Intelligence: Matthew May MD CO2 [Moles/Vol] 23 mmol/L Normal 20-31 [facility] Comment on above: Performed By: #### B MP #### [facility] [address] [place], [place] [phone] Director Business Intelligence: Matthew May MD Creatinine [Mass/Vol] 1.0 mg/dL High 0.5-0.9 [facility] Comment on above: Performed By: #### B MP #### [facility] [address] [place], [place] 6754983 Director Business Intelligence: Matthew May MD GFR/1.73 sq M.predicted among non-blacks MDRD (S/P/Bld) [Vol rate/Area] mL/min/{1.73_m2} Normal >60 [facility] Comment on above: Result Comment: These [...] secretion. Performed By: #### B MP #### [facility] [address] [place] [address] Dr. [place], [place] [phone] Director Business Intelligence: Matthew May MD Glucose [Mass/Vol] 96 mg/dL Normal 70-99 [facility] Comment on above: Performed By: #### B MP #### [address] [place] [phone] Director Business Intelligence: Matthew May MD Potassium [Moles/Vol] 3.8 mmol/L Normal 3.7-5.3 [facility] Comment on above: Performed By: #### B MP #### [address] [place], [place] [phone] Director Business Intelligence: Matthew May MD Sodium [Moles/Vol] 139 mmol/L Normal 135-144 [facility] Comment on above: Performed By: #### B MP #### [address] [place], [place] [phone] Director Business Intelligence: Matthew May MD Urea nitrogen [Mass/Vol] 16 mg/dL Normal 6-20 [facility] Comment on above: Performed By: #### B MP #### [address] [place], [place] 6003883 Director Business Intelligence: Matthew aMy MD Lipid Profileon 07-12-2023 Cholesterol [Mass/Vol] 206 mg/dL High <200 [facility] Comment on above: Result Comment: Cholesterol Guidelines: <200 Desirable 200-240 Borderline >240 Undesirable Performed By: #### L IPR ####[address] [id number] Lab Director: David Arzate MD Cholesterol in HDL [Mass/Vol] 44 mg/dL Normal >40 [facility] Comment on above: Result Comment: HDL Guidelines: <40 Undesirable 40-59 Borderline >59 Desirable Performed By: #### L IPR ####[address] [address])[phone] Director: David Arzate MD Cholesterol in LDL [Mass/Vol] 119 mg/dL Normal 0-130 [facility] Comment on above: Result Comment: LDL Guidelines: <100 Desirable 100-129 Near to/above Desirable 130-159 Borderline >159 Undesirable Direct (measured) LDL and calculated LDL are not interchangeable tests. Performed By: #### L IPR ####[place], [place] [address])[phone] Director: David Arzate MD Cholesterol.total/Cholest deni in HDL [Mass ratio] 4.7 {ratio} Normal <5 [facility] Comment on above: Performed By: #### L IPR ####[place], [place] [address])[phone] Director: David Arzate MD Triglyceride [Mass/Vol] 215 mg/dL High <150 [facility] Comment on above: Result Comment: Triglyceride Guidelines: <150 Desirable 150-199 Borderline 200-499 High >499 Very high Based on AHA Guidelines for fasting triglyceride, September 2012. Performed By: #### L IPR ####[place], [place] [address])[phone] Director: David Arzate MD Thyroid Stim. Horm.on 2022 Thyroid Stim. Horm. 24.04 uIU/mL High 0.30-5.00 [facility] Comment on above: Performed By: #### F T4 #### [address] [place] [address] Director Business Intelligence: David Arzate MD #### TSH #### [facility] [address] [place] [address] Director Business Intelligence: Matthew May MD Thyroxine, Freeon 07-12-2023 Thyroxine, Free 1.0 ng/dL Normal 0.9-1.7 [facility] Comment on above: Performed By: #### F T4 #### [facility] [address] [place] [address] Director Business Intelligence: David Arzate MD #### TSH #### [facility] [address] [place], [place] [phone] Director Business Intelligence: Matthew May MD PAP ACOG PANEL 2: 21 to 29on 09-11-2022 . . [facility] Comment on above: Performed By: #### E RUR #### [facility] [address] [place] [address] Dr. Berenice Collins Age Gdln ACOG Testing - [facility] Comment on above: Performed By: #### E RUR #### [facility] [address] [place] [address] Dr. Berenice Collins DIAGNOSIS: Comment [facility] Comment on above: Result Comment: NEGA TIVE FOR INTRAEPITHELIAL LESION OR MALIGNANCY. Performed By: #### E RUR #### [facility] [address] [place] [address] Dr. Berenice Collins Methodology: Comment [facility] Comment on above: Result Comment: This liquid based ThinPrep(R) pap test was screened with the use of an image guided system. Performed By: #### E RUR #### [facility] [address] [place] [address] Dr. Berenice Collins Note: Comment [facility] Comment on above: Result Comment: The Pap smear is a screening test designed to aid in the detection of premalignant and malignant conditions of the uterine cervix. It is not a diagnostic procedure and should not be used as the sole means of detecting cervical cancer. Both false-positive and false-negative reports do occur. . Performed By: #### E RUR #### [facility] [address] [place] [address] Dr. Berenice Collins Performed by: Comment [facility] Comment on above: Result Comment: Janell Whipple, Import Export Agent (ASCP) Performed By: #### E RUR #### [facility] [address] [place] [address] [address] [address] Berenice Collins Reflex Criteria: Comment Normal [facility] Comment on above: Result Comment: The HPV DNA reflex criteria were not met with this specimen result therefore, no HPV testing was performed. . Performed By: #### E RUR #### [facility] [address] [place], [place] [phone] Dr. Berenice Collins Specimen adequacy: Comment Normal [facility] Comment on above: Result Comment: Sati sfactory for evaluation. No endocervical component is identified. Performed By: #### E RUR #### [facility] [address] [place], [place] [phone] Dr. Berenice Collins DHEA SERUMon 06-06-2022 Dehydroepiandrosterone (DHEA) 267 ng/dL Normal 31-701 [facility] Comment on above: Result Comment: Age 1 [...] 31 - 701 Performed By: #### C [facility] #### [facility] [address] [place] [address] Dr. Berenice Collins US PELVIS AND TRANSVAGon [...] MICKEY LARA Date: 2022-06-05 17:26 Normal [facility] DHEA-SULFATEon 06-01-2022 DHEA-Sulfate 74.2 ug/dL Critically low 84.8-378.0 [facility] Comment on above: Performed By: #### D ABBY #### [facility] [address] [place] [address] Dr. Berenice Collins FSHon 06-01-2022 FSH 6.1 mIU/mL Normal [facility] Comment on above: Result Comment: Adul t Female: Follicular phase 3.5 - 12.5 Ovulation phase 4.7 - 21.5 Luteal phase 1.7 - 7.7 Postmenopausal 25.8 - 134.8 Performed By: #### C VDTBH #### [facility] [address] [place] [address] Dr. Berenice Collins LUTEINIZING HORMONE (LH)on 0 06-01-2022 LH 58.6 mIU/mL Normal [facility] Comment on above: Result Comment: Adul t Female: Follicular phase 2.4 - 12.6 Ovulation phase 14.0 - 95.6 Luteal phase 1.0 - 11.4 Postmenopausal 7.7 - 58.5 Performed By: #### L BCLAlmaz #### [facility] [address] [place] [address] Dr. Berenice Collins CBC AUTO DIFFon 05-31-2022 BASO # 0.0 103/ul Normal 0.0-0.1 [facility] Comment on above: Performed By: #### C VDTBAlmaz #### [facility] [address] [place] [address] Dr. Berenice Collins Basophils/100 WBC (Bld) 0.4 % Normal 0.2-2.0 [facility] Comment on above: Performed By: #### C VDTBH #### [facility] [address] [place] [address] Dr. Berenice Collins EO # 0.1 103/ul Normal 0.0-0.7 [facility] Comment on above: Performed By: #### C VDTBH #### [facility] [address] [place] [address] Dr. Berenice Collins Eosinophils/100 WBC (Bld) 1.0 % Normal 0.9-7.0 [facility] Comment on above: Performed By: #### C VDTBH #### [facility] [address] [place] [address] Dr. Berenice Collins Erythrocyte distribution width (RBC) [Ratio] 14.6 % Normal 11.0-15.0 [facility] Comment on above: Performed By: #### C VDTBH #### [facility] [address] [place] [address] Dr. Berenice Collins Hematocrit (Bld) [Volume fraction] 37.2 % Normal 36.0-48.0 [facility] Comment on above: Performed By: #### C VDTBH #### [facility] [address] [place] [address] Dr. Berenice Collins Hemoglobin (Bld) [Mass/Vol] 12.2 g/dL Normal 12.0-16.0 [facility] Comment on above: Performed By: #### C VDTBH #### [facility] [address] [place] [address] Dr. Berenice Collins IG # 0.03 10e3/ul Normal 0.00-0.03 [facility] Comment on above: Performed By: #### C VDTBH #### [facility] [address] [place] [address] Dr. Berenice Collins IG % 0.3 % Normal 0.0-0.5 [facility] Comment on above: Performed By: #### C VDTBH #### [facility] [address] [place] [address] Dr. Berenice Collins LYMPH # 1.6 103/ul Normal 1.2-3.8 [facility] Comment on above: Performed By: #### C VDTBH #### [facility] [address] [place] [address] Dr. Berenice Collins Lymphocytes/100 WBC (Bld) 15.5 % Critically low 20.5-6 0.0 [facility] Comment on above: Performed By: #### C VDTBH #### [facility] [address] [place] [address] Dr. Berenice Collins MANUAL DIFF REQ NO Normal [facility] Comment on above: Performed By: #### C VDTBH #### [facility] [address] [place] [address] Dr. Berenice Collins MCH (RBC) [Entitic mass] 27.2 pg Normal 26.7-34.0 [facility] Comment on above: Performed By: #### C VDTBH #### [facility] [address] [place] [address] Dr. Berenice Collins MCHC (RBC) [Mass/Vol] 32.8 g/dL Normal 29.9-35.2 [facility] Comment on above: Performed By: #### C VDTBH #### [facility] [address] [place] [address] Dr. Berenice Collins MCV (RBC) [Entitic vol] 83.0 fL Normal 81.0-99.0 [facility] Comment on above: Performed By: #### C VDTBH #### [facility] [address] [place] [address] Dr. Berenice Collins MONO # 0.6 103/ul Normal 0.3-0.8 [facility] Comment on above: Performed By: #### C VDTBH #### [facility] [address] [place] [address] Dr. Berenice Collins Monocytes/100 WBC (Bld) 6.2 % Normal 1.7-12.0 [facility] Comment on above: Performed By: #### C VDTBH #### [facility] [address] [place] [address] Dr. Berenice Collins NEUT # 7.9 103/ul Critically high 1.4-6.5 [facility] Comment on above: Performed By: #### C VDTBH #### [facility] [address] [place] [address] Dr. Berenice Collins Neutrophils/100 WBC (Bld) 76.6 % Critically high 43.0- 75.0 [facility] Comment on above: Performed By: #### C VDTBH #### [facility] [address] [place] [address] Dr. Berenice Collins Platelet mean volume (Bld) [Entitic vol] 11.2 fL Normal 9.5-13.5 [facility] Comment on above: Performed By: #### C VDTBH #### [facility] [address] [place] [address] Dr. Berenice Collins PLT 288 103/ul Normal 150-450 [facility] Comment on above: Performed By: #### C VDTBH #### [facility] [address] [place] [address] Dr. Berenice Collins RBC 4.48 106/ul Normal 4.20-5.40 [facility] Comment on above: Performed By: #### C VDTBH #### [facility] [address] [place] [address] Dr. Berenice Collins WBC 10.4 103/ul Normal 4.0-11.0 [facility] Comment on above: Performed By: #### C VDTBH #### [facility] [address] [place] [address] Dr. Berenice Collins FREE T4on 05-31-2022 Free T4 [Mass/Vol] 0.81 ng/dL Normal 0.76-1.46 [facility] Comment on above: Performed By: #### F T4 #### [facility] [address] [place] [address] Dr. Berenice Collins GLYCOHEMOGLOBIN A1Con 2021 ADA RECOMMENDATION SEE BELOW Normal [facility] Comment on above: Result Comment: ADA RECOMMENDED LIMIT 4.0 - 6.0 ADA THERAPEUTIC TARGET < 7.0 ACTION SUGGESTED > 7.0 Performed By: #### A 1C #### [facility] [address] [place] [address] Dr. Berenice Collins Glucose [Mass/Vol] 114 mg/dL Normal [facility] Comment on above: Performed By: #### A 1C #### [facility] [address] [place] [address] Dr. Berenice Collins HbA1c (Bld) [Mass fraction] 5.6 % Normal 4.5-6.2 [facility] Comment on above: Performed By: #### A 1C #### [facility] [address] [place] [address] Dr. Berenice Collins TSHon 05-31-2022 TSH 39.549 uIU/mL Critically high 0.358-3.740 [facility] Comment on above: Performed By: #### E RUR #### [facility] [address] [place] [address] Dr. Berenice Collins CBC AUTO DIFFon 11-09-2021 BASO # 0.0 103/ul Normal 0.0-0.1 [facility] Comment on above: Performed By: #### E RUR #### [facility] [address] [place] [address] Dr. Berenice Collins Basophils/100 WBC (Bld) 0.3 % Normal 0.2-2.0 [facility] Comment on above: Performed By: #### E RUR #### [facility] [address] [place] [address] Dr. Berenice Collins EO # 0.3 103/ul Normal 0.0-0.7 [facility] Comment on above: Performed By: #### E RUR #### [facility] [address] [place] [address] Dr. Berenice Collins Eosinophils/100 WBC (Bld) 2.7 % Normal 0.9-7.0 [facility] Comment on above: Performed By: #### E RUR #### [facility] [address] [place] [address] Dr. Berenice Collins Erythrocyte distribution width (RBC) [Ratio] 13.6 % Normal 11.0-15.0 [facility] Comment on above: Performed By: #### E RUR #### [facility] [address] [place] [address] Dr. Berenice Collins Hematocrit (Bld) [Volume fraction] 30.0 % Critically low 36.0-48.0 [facility] Comment on above: Performed By: #### E RUR #### [facility] [address] [place] [address] Dr. Berenice Collins Hemoglobin (Bld) [Mass/Vol] 9.8 g/dL Critically low 12.0-16.0 [facility] Comment on above: Performed By: #### E RUR #### [facility] [address] [place] [address] Dr. Berenice Collins IG # 0.03 10e3/ul Normal 0.00-0.03 [facility] Comment on above: Performed By: #### E RUR #### [facility] [address] [place] [address] Dr. Berenice Collins IG % 0.3 % Normal 0.0-0.5 [facility] Comment on above: Performed By: #### E RUR #### [facility] [address] [place] [address] Dr. Berenice Collins LYMPH # 2.1 103/ul Normal 1.2-3.8 [facility] Comment on above: Performed By: #### E RUR #### [facility] [address] [place] [address] Dr. Berenice Collins Lymphocytes/100 WBC (Bld) 21.2 % Normal 20.5-60.0 [facility] Comment on above: Performed By: #### E RUR #### [facility] [address] [place] [address] Dr. Berenice Collins MANUAL DIFF REQ NO Normal [facility] Comment on above: Performed By: #### E RUR #### [facility] [address] [place] [address] Dr. Berenice Collins MCH (RBC) [Entitic mass] 29.5 pg Normal 26.7-34.0 [facility] Comment on above: Performed By: #### E RUR #### [facility] [address] [place] [address] Dr. Berenice Collins MCHC (RBC) [Mass/Vol] 32.7 g/dL Normal 29.9-35.2 [facility] Comment on above: Performed By: #### E RUR #### [facility] [address] [place] [address] Dr. Berenice Collins MCV (RBC) [Entitic vol] 90.4 fL Normal 81.0-99.0 [facility] Comment on above: Performed By: #### E RUR #### [facility] [address] [place] [address] Dr. Berenice Collins MONO # 0.7 103/ul Normal 0.3-0.8 [facility] Comment on above: Performed By: #### E RUR #### [facility] [address] [place] [address] Dr. Berenice Collins Monocytes/100 WBC (Bld) 6.6 % Normal 1.7-12.0 [facility] Comment on above: Performed By: #### E RUR #### [facility] [address] [place] [address] Dr. Berenice Collins NEUT # 6.8 103/ul Critically high 1.4-6.5 [facility] Comment on above: Performed By: #### E RUR #### [facility] [address] [place] [address] Dr. Berenice Collins Neutrophils/100 WBC (Bld) 68.9 % Normal 43.0-75.0 [facility] Comment on above: Performed By: #### E RUR #### [facility] [address] [place] [address] Dr. Berenice Collins Platelet mean volume (Bld) [Entitic vol] 11.4 fL Normal 9.5-13.5 [facility] Comment on above: Performed By: #### E RUR #### [facility] [address] [place] [address] Dr. Berenice Collins PLT 203 103/ul Normal 150-450 [facility] Comment on above: Performed By: #### E RUR #### [facility] [address] [place] [address] Dr. Berenice Collins RBC 3.32 106/ul Critically low 4.20-5.40 [facility] Comment on above: Performed By: #### E RUR #### [facility] [address] [place] [address] Dr. Berenice Collins WBC 9.9 103/ul Normal 4.0-11.0 [facility] Comment on above: Performed By: #### E RUR #### [facility] [address] [place] [address] Dr. Berenice Collins CBC AUTO DIFFon 11-08-2021 BASO # 0.0 103/ul Normal 0.0-0.1 [facility] Comment on above: Performed By: #### C VDTBH #### [facility] [address] [place] [address] Dr. Berenice Collins Basophils/100 WBC (Bld) 0.4 % Normal 0.2-2.0 [facility] Comment on above: Performed By: #### C VDTBH #### [facility] [address] [place] [address] Dr. Berenice Collins EO # 0.1 103/ul Normal 0.0-0.7 [facility] Comment on above: Performed By: #### C VDTBH #### [facility] [address] [place] [address] Dr. Berenice Collins Eosinophils/100 WBC (Bld) 1.3 % Normal 0.9-7.0 [facility] Comment on above: Performed By: #### C VDTBH #### [facility] [address] [place] [address] Dr. Berenice Collins Erythrocyte distribution width (RBC) [Ratio] 13.3 % Normal 11.0-15.0 [facility] Comment on above: Performed By: #### C VDTBH #### [facility] [address] [place] [address] Dr. Berenice Collins Hematocrit (Bld) [Volume fraction] 32.6 % Critically low 36.0-48.0 [facility] Comment on above: Performed By: #### C VDTBH #### [facility] [address] [place] [address] Dr. Berenice Collins Hemoglobin (Bld) [Mass/Vol] 10.8 g/dL Critically low 12.0-16.0 [facility] Comment on above: Performed By: #### C VDTBH #### [facility] [address] [place] [address] Dr. Berenice Collins IG # 0.05 10e3/ul Critically high 0.00-0.03 [facility] Comment on above: Performed By: #### C VDTBH #### [facility] [address] [place] [address] Dr. Berenice Collins IG % 0.5 % Normal 0.0-0.5 [facility] Comment on above: Performed By: #### C VDTBH #### [facility] [address] [place] [address] Dr. Berenice Collins LYMPH # 2.0 103/ul Normal 1.2-3.8 [facility] Comment on above: Performed By: #### C VDTBH #### [facility] [address] [place] [address] Dr. Berenice Collins Lymphocytes/100 WBC (Bld) 19.5 % Critically low 20.5-6 0.0 [facility] Comment on above: Performed By: #### C VDTBH #### [facility] [address] [place] [address] Dr. Berenice Collins MANUAL DIFF REQ NO Normal [facility] Comment on above: Performed By: #### C VDTBH #### [facility] [address] [place] [address] Dr. Berenice Collins MCH (RBC) [Entitic mass] 29.3 pg Normal 26.7-34.0 [facility] Comment on above: Performed By: #### C VDTBH #### [facility] [address] [place] [address] Dr. Berenice Collins MCHC (RBC) [Mass/Vol] 33.1 g/dL Normal 29.9-35.2 [facility] Comment on above: Performed By: #### C VDTBH #### [facility] [address] [place] [address] Dr. Berenice Collins MCV (RBC) [Entitic vol] 88.6 fL Normal 81.0-99.0 [facility] Comment on above: Performed By: #### C VDTBH #### [facility] [address] [place] [address] Dr. Berenice Collins MONO # 0.7 103/ul Normal 0.3-0.8 [facility] Comment on above: Performed By: #### C VDTBH #### [facility] [address] [place] [address] Dr. Berenice Collins Monocytes/100 WBC (Bld) 6.9 % Normal 1.7-12.0 [facility] Comment on above: Performed By: #### C VDTBH #### [facility] [address] [place] [address] Dr. Berenice Collins NEUT # 7.3 103/ul Critically high 1.4-6.5 [facility] Comment on above: Performed By: #### C VDTBH #### [facility] [address] [place] [address] Dr. Berenice Collins Neutrophils/100 WBC (Bld) 71.4 % Normal 43.0-75.0 [facility] Comment on above: Performed By: #### C VDTBH #### [facility] [address] [place] [address] Dr. Berenice Collins Platelet mean volume (Bld) [Entitic vol] 12.2 fL Normal 9.5-13.5 [facility] Comment on above: Performed By: #### C VDTBH #### [facility] [address] [place] [address] Dr. Berenice Collins PLT 247 103/ul Normal 150-450 [facility] Comment on above: Performed By: #### C VDTBH #### [facility] [address] [place] [address] Dr. Berenice Collins RBC 3.68 106/ul Critically low 4.20-5.40 [facility] Comment on above: Performed By: #### C VDTBH #### [facility] [address] [place] [address] Dr. Berencie Collins WBC 10.3 103/ul Normal 4.0-11.0 [facility] Comment on above: Performed By: #### C VDTBH #### [facility] [address] [place] [address] Dr. Berenice Collins CULTURE URINEon 11-08-2021 CULTURE URINE Culture Observations: VERY LIGHT GROWTH OF MIXED GENITAL LEVON. NO POTENTIAL PATHOGENS SEEN. Normal [facility] Comment on above: Performed By: #### E RUR #### [facility] [address] [place] [address] Dr. Berenice Collins DRUG SCREEN RAPID (URINE)on 11-08-2021 AMP Negative Normal NEGATIVE [facility] Comment on above: Performed By: #### D RUGRPD #### [facility] [address] [place] [address] Dr. Berenice Collins BAR Negative Normal NEGATIVE [facility] Comment on above: Performed By: #### D RUGRPD #### [facility] [address] [place] [address] Dr. Berenice Collins BUP Negative Normal NEGATIVE [facility] Comment on above: Performed By: #### D RUGRPD #### [facility] [address] [place] [address] Dr. Berenice Collins BZO Negative Normal NEGATIVE [facility] Comment on above: Performed By: #### D RUGRPD #### [facility] [address] [place] [address] Dr. Berenice Collins JYOTI Negative Normal NEGATIVE [facility] Comment on above: Performed By: #### D RUGRPD #### [facility] [address] [place] [address] Dr. Berenice Collins CUT-OFFS SEE BELOW Normal [facility] Comment on above: Result Comment: AMP [...] ng/mL Performed By: #### D RUGRPD #### [facility] [address] [place] [address] Dr. Berenice Collins DRUG CUT HEADER DRUG CLASS TEST SYSTEM CUT-OFF CONCENTRATIONS ARE FOLLOWS: Normal [facility] Comment on above: Performed By: #### D RUGRPD #### [facility] [address] [place] [address] Dr. Berenice Collins mAMP Negative Normal NEGATIVE [facility] Comment on above: Performed By: #### D RUGRPD #### [facility] [address] [place] [address] Dr. Berenice Collins MTD Negative Normal NEGATIVE [facility] Comment on above: Performed By: #### D RUGRPD #### [facility] [address] [place] [address] Dr. Berenice Collins OPI Negative Normal NEGATIVE [facility] Comment on above: Performed By: #### D RUGRPD #### [facility] [address] [place] [address] Dr. Berenice Collins OXY Negative Normal NEGATIVE [facility] Comment on above: Performed By: #### D RUGRPD #### [facility] [address] [place] [address] Dr. Berenice Collins PCP Negative Normal NEGATIVE [facility] Comment on above: Performed By: #### D RUGRPD #### [facility] [address] [place] [address] Dr. Berenice Collins PPX Negative Normal NEGATIVE [facility] Comment on above: Performed By: #### D RUGRPD #### [facility] [address] [place] [address] Dr. Berenice Collins TCA Negative Normal NEGATIVE [facility] Comment on above: Performed By: #### D RUGRPD #### [facility] [address] [place] [address] Dr. Berenice Collins THC Negative Normal NEGATIVE [facility] Comment on above: Performed By: #### D RUGRPD #### [facility] [address] [place] [address] Dr. Berenice Collins TYPE AND SCREENon 11-08-2021 TYPE AND SCREEN Negative Normal [facility] Comment on above: Performed By: #### E RUR #### [facility] [address] [place] [address] Dr. Beernice Collins UA (CLEAN/CATCH) PIANO INSTRUCTOR/MICRO I F IND.on 11-08-2021 Bilirubin Ql (U) Negative Normal NEGATIVE [facility] Comment on above: Performed By: #### U ACSIND, UMICRO #### [facility] [address] [place] [address] Dr. Berenice Collins Clarity (U) SL CLOUDY Abnormal CLEAR [facility] Comment on above: Performed By: #### U ACSIND, UMICRO #### [facility] [address] [place] [address] Dr. Berenice Collins Color (U) YELLOW Normal YELLOW [facility] Comment on above: Performed By: #### U ACSIND, UMICRO #### [facility] [address] [place] [address] Dr. Berenice Collins Glucose Ql (U) Negative Normal NEGATIVE [facility] Comment on above: Performed By: #### U ACSIND, UMICRO #### [facility] [address] [place] [address] Dr. Berenice Collins Hemoglobin Ql (U) Negative Normal NEGATIVE [facility] Comment on above: Performed By: #### U ACSIND, UMICRO #### [facility] [address] [place] [address] Dr. Berenice Collins Ketones Ql (U) Negative Normal NEGATIVE [facility] Comment on above: Performed By: #### U ACSIND, UMICRO #### [facility] [address] [place] [address] Dr. Berenice Collins LEUKOCYTES TRACE Abnormal NEGATIVE [facility] Comment on above: Performed By: #### U ACSIND, UMICRO #### [facility] [address] [place] [address] Dr. Berenice Collins Nitrite Ql (U) Negative Normal NEGATIVE [facility] Comment on above: Performed By: #### U ACSIND, UMICRO #### [facility] [address] [place] [address] Dr. Berenice Collins pH (U) 5.0 [pH] Normal 5-9 [facility] Comment on above: Performed By: #### U ACSIND, UMICRO #### [facility] [address] [place] [address] Dr. Berenice Collins SPEC GRAVITY >=1.030 Abnormal 1.005-<=1.0 25 [facility] Comment on above: Performed By: #### U ACSLORENZO, UMICRO #### [facility] [address] [place] [address] Dr. Berenice Collins UA PROTEIN Negative Normal NEGATIVE/ TRACE [facility] Comment on above: Performed By: #### U ACSLORENZO, UMICRO #### [facility] [address] [place] [address] Dr. Berenice Collins UR MICRO IND INDICATED Normal [facility] Comment on above: Performed By: #### U ACSLORENZO, UMICRO #### [facility] [address] [place] [address] Dr. Berenice Collins Urobilinogen Qn (U) 0.2 {Ana'U}/dL Normal 0.2 - 1. 0 [facility] Comment on above: Performed By: #### U ACSOLRENZO, UMICRO #### [facility] [address] [place] [address] Dr. Berenice Collins URINE MICROSCOPIC ONLYon BACTERIA MODERATE Abnormal NONE SEEN [facility] Comment on above: Performed By: #### U ACSIND, UMICRO #### [facility] [address] [place] [address] Dr. Berenice Collins Bacteria identified Cx Nom (U) INDICATED Normal [facility] Comment on above: Performed By: #### U ACSLORENZO, UMICRO #### [facility] [address] [place] [address] Dr. Berenice Collins CAST NONE SEEN Normal NONE SEEN [facility] Comment on above: Performed By: #### U ACSLORENZO, UMICRO #### [facility] [address] [place] [address] Dr. Berenice Collins Crystals LM Nom (Urine sed) NONE SEEN Normal NONE SEEN [facility] Comment on above: Performed By: #### U ACSLORENZO, UMICRO #### [facility] [address] [place] [address] Dr. Berenice Collins Epithelial cells LM Ql (Urine sed) MANY Abnormal NONE SEEN /RARE [facility] Comment on above: Performed By: #### U ACSLORENZO, UMICRO #### [facility] [address] [place] [address] Dr. Berenice Collins MUCOUS TRACE Abnormal NONE SEEN [facility] Comment on above: Performed By: #### U SOY, UMICRO #### [facility] [address] [place] [address] Dr. Berenice Collins RBC 0-2 Normal 0-2 [facility] Comment on above: Performed By: #### U SOY UMICRO #### [facility] [address] [place] [address] Dr. Berenice Collins WBC 10-20 Abnormal NONE SEEN [facility] Comment on above: Performed By: #### U SOY UMICRO #### [facility] [address] [place] [address] Dr. Berenice Collins Covid-19 PCR (CVDTB)on SARS-CoV-2 (COVID-19) RNA AGUSTIN+probe Ql (Unsp spec) Not detected Normal NOT DETECTED [facility] Comment on above: Result Comment: This test is not yet approved or cleared by the [place] FDA. When there are no FDA-approved or cleared tests available, and other criteria are met, FDA can make tests available under an emergency access mechanism called an Emergency Use Authorization (EUA). The EUA for this test is supported by the [employer] of Health and Human Service's (HHS's) declaration [...] SARS-CoV-2. Performed By: #### C VDTBH #### [facility] [address] [place] [address] Dr. Berenice Collins CHLAMYDIA/GONOCOCCUS AGUSTIN ( AB/URINE/PAPon 10-28-2021 Chlamydia trachomatis, AGUSTIN Negative Normal Negative [facility] Comment on above: Performed By: #### E RUR #### [facility] [address] [place] [address] Dr. Berenice Collins Neisseria gonorrhoeae, AGUSTIN Negative Normal Negative [facility] Comment on above: Performed By: #### E RUR #### [facility] [address] [place] [address] Dr. Berenice Collins DRUG SCREEN RAPID (URINE)on 10-24-2021 AMP Negative Normal NEGATIVE [facility] Comment on above: Performed By: #### C VDTBH #### [facility] [address] [place] [address] Dr. Berenice Collins BAR Negative Normal NEGATIVE [facility] Comment on above: Performed By: #### C VDTBH #### [facility] [address] [place] [address] Dr. Berenice Collins BUP Negative Normal NEGATIVE [facility] Comment on above: Performed By: #### C VDTBH #### [facility] [address] [place] [address] Dr. Berenice Collins BZO Negative Normal NEGATIVE [facility] Comment on above: Performed By: #### C VDTBH #### [facility] [address] [place] [address] Dr. Berenice Collins JYOTI Negative Normal NEGATIVE [facility] Comment on above: Performed By: #### C VDTBH #### [facility] [address] [place] [address] Dr. Berenice Collins CUT-OFFS SEE BELOW Normal [facility] Comment on above: Result Comment: AMP (Amphetamine): 500ng/mL, BAR (Barbituates): 200 ng/mL, BZO (Benzodiazepines): 150 ng/mL, BUP (Buprenorphine): 10 ng/mL, JYOTI (Cocaine): 150 ng/mL, mAMP (Methamphetamine): 500 ng/mL, MTD (Methadone): 200 ng/mL, OPI (Opiates): 100 ng/mL, OXY (Oxycodone): 100 ng/mL, PCP (Phencyclidine): 25 ng/mL, PPX (Propoxyphene): 300 ng/mL, THC (Cannabinoids): 50 ng/mL, TCA (Trycyclic Antidepressants): 300 ng/mL Performed By: #### C VDTBH #### [facility] [address] [place] [address] Dr. Berenice Collins DRUG CUT HEADER DRUG CLASS TEST SYSTEM CUT-OFF CONCENTRATIONS ARE FOLLOWS: Normal [facility] Comment on above: Performed By: #### C VDTBH #### [facility] [address] [place] [address] Dr. Berenice Collins mAMP Negative Normal NEGATIVE [facility] Comment on above: Performed By: #### C VDTBH #### [facility] [address] [place] [address] Dr. Berenice Collins MTD Negative Normal NEGATIVE [facility] Comment on above: Performed By: #### C VDTBH #### [facility] [address] [place] [address] Dr. Berenice Collins OPI Negative Normal NEGATIVE [facility] Comment on above: Performed By: #### C VDTBH #### [facility] [address] [place] [address] Dr. Berenice Collins OXY Negative Normal NEGATIVE [facility] Comment on above: Performed By: #### C VDTBH #### [facility] [address] [place] [address] Dr. Berenice Collins PCP Negative Normal NEGATIVE [facility] Comment on above: Performed By: #### C VDTBH #### [facility] [address] [place] [address] Dr. Berenice Collins PPX Negative Normal NEGATIVE [facility] Comment on above: Performed By: #### C VDTBH #### [facility] [address] [place] [address] Dr. Berenice Collins TCA Negative Normal NEGATIVE [facility] Comment on above: Performed By: #### C VDTBH #### [facility] [address] [place] [address] Dr. Berenice Collins THC Negative Normal NEGATIVE [facility] Comment on above: Performed By: #### C VDTBH #### [facility] [address] [place] [address] Dr. Berenice Collins GROUP B STREP CULTUREon 10-03 S. agalactiae Ag Ql (Unsp spec) Culture Observations: NEGATIVE FOR GROUP B STREPTOCOCCUS. Normal [facility] Comment on above: Performed By: #### E RUR #### [facility] [address] [place] [address] Dr. Berenice Collins CBC AUTO DIFFon 10-03-2021 BASO # 0.0 103/ul Normal 0.0-0.1 [facility] Comment on above: Performed By: #### C VDTBH #### [facility] [address] [place] [address] Dr. Berenice Collins Basophils/100 WBC (Bld) 0.0 % Critically low 0.2-2.0 [facility] Comment on above: Performed By: #### C VDTBH #### [facility] [address] [place] [address] Dr. Berenice Collins EO # 0.0 103/ul Normal 0.0-0.7 [facility] Comment on above: Performed By: #### C VDTBH #### [facility] [address] [place] [address] Dr. Berenice Collins Eosinophils/100 WBC (Bld) 0.2 % Critically low 0.9-7. 0 [facility] Comment on above: Performed By: #### C VDTBH #### [facility] [address] [place] [address] Dr. Berenice Collins Erythrocyte distribution width (RBC) [Ratio] 13.2 % Normal 11.0-15.0 [facility] Comment on above: Performed By: #### C VDTBH #### [facility] [address] [place] [address] Dr. Berenice Collins Hematocrit (Bld) [Volume fraction] 34.1 % Critically low 36.0-48.0 [facility] Comment on above: Performed By: #### C VDTBH #### [facility] [address] [place] [address] Dr. Berenice Collins Hemoglobin (Bld) [Mass/Vol] 11.5 g/dL Critically low 12.0-16.0 [facility] Comment on above: Performed By: #### C VDTBH #### [facility] [address] [place] [address] Dr. Berenice Collins IG # 0.02 10e3/ul Normal 0.00-0.03 [facility] Comment on above: Performed By: #### C VDTBH #### [facility] [address] [place] [address] Dr. Berenice Collins IG % 0.4 % Normal 0.0-0.5 [facility] Comment on above: Performed By: #### C VDTBH #### [facility] [address] [place] [address] Dr. Berenice Collins LYMPH # 1.1 103/ul Critically low 1.2-3.8 [facility] Comment on above: Performed By: #### C VDTBH #### [facility] [address] [place] [address] Dr. Berenice Collins Lymphocytes/100 WBC (Bld) 20.1 % Critically low 20.5-6 0.0 [facility] Comment on above: Performed By: #### C VDTBH #### [facility] [address] [place] [address] Dr. Berenice Collins MANUAL DIFF REQ NO Normal [facility] Comment on above: Performed By: #### C VDTBH #### [facility] [address] [place] [address] Dr. Berenice Collins MCH (RBC) [Entitic mass] 29.5 pg Normal 26.7-34.0 [facility] Comment on above: Performed By: #### C VDTBH #### [facility] [address] [place] [address] Dr. Berenice Collins MCHC (RBC) [Mass/Vol] 33.7 g/dL Normal 29.9-35.2 [facility] Comment on above: Performed By: #### C VDTBH #### [facility] [address] [place] [address] Dr. Berenice Collins MCV (RBC) [Entitic vol] 87.4 fL Normal 81.0-99.0 [facility] Comment on above: Performed By: #### C VDTBH #### [facility] [address] [place] [address] Dr. Berenice Collins MONO # 0.3 103/ul Normal 0.3-0.8 [facility] Comment on above: Performed By: #### C VDTBH #### [facility] Laboratory [address] [place] [address] Dr. Berenice Collins Monocytes/100 WBC (Bld) 6.0 % Normal 1.7-12.0 [facility] Comment on above: Performed By: #### C VDTBH #### [facility] [address] [place] [address] Dr. Berenice Collins NEUT # 4.1 103/ul Normal 1.4-6.5 [facility] Comment on above: Performed By: #### C VDTBH #### [facility] [address] [place] [address] Dr. Berenice Collins Neutrophils/100 WBC (Bld) 73.3 % Normal 43.0-75.0 [facility] Comment on above: Performed By: #### C VDTBH #### [facility] [address] [place] [address] Dr. Berenice Collins Platelet mean volume (Bld) [Entitic vol] 11.8 fL Normal 9.5-13.5 [facility] Comment on above: Performed By: #### C VDTBH #### [facility] [address] [address] [address] Berenice Collins PLT 169 103/ul Normal 150-450 [facility] Comment on above: Performed By: #### C VDTBH #### [facility] [address] [address] [address] Berenice Collins RBC 3.90 106/ul Critically low 4.20-5.40 [facility] Comment on above: Performed By: #### C VDTBH #### [facility] [address] [address] [address] Berenice Collins WBC 5.5 103/ul Normal 4.0-11.0 [facility] Comment on above: Performed By: #### C VDTBH #### [facility] [address] [place] [address] Dr. Berenice Collins CTA CHEST WO W [...] ANNE-MARIE JOSEPH Date: 2021-10-03 20:02 Normal [facility] ER URINE PROFILEon 1 Bilirubin Ql (U) Negative Normal NEGATIVE [facility] Comment on above: Performed By: #### E RUR #### [facility] [address] [place] [address] Dr. Berenice Collins Clarity (U) CLEAR Normal CLEAR [facility] Comment on above: Performed By: #### E RUR #### [facility] [address] [place] [address] Dr. Berenice Collins Color (U) DK. YELLOW Normal YELLOW [facility] Comment on above: Performed By: #### E RUR #### [facility] [address] [place] [address] Dr. Berenice BERRIOS A micrscopic examination will be performed if indicated. Normal [facility] Comment on above: Performed By: #### E RUR #### [facility] [address] [place] [address] Dr. Berenice Collins Glucose Ql (U) Negative Normal NEGATIVE [facility] Comment on above: Performed By: #### E RUR #### [facility] [address] [place] [address] Dr. Berenice Collins Hemoglobin Ql (U) Negative Normal NEGATIVE [facility] Comment on above: Performed By: #### E RUR #### [facility] [address] [place] [address] Dr. Berenice Collins Ketones Ql (U) 15 mg/dl Abnormal NEGATIVE [facility] Comment on above: Performed By: #### E RUR #### [facility] [address] [place] [address] Dr. Berenice Collins LEUKOCYTES Negative Normal NEGATIVE [facility] Comment on above: Performed By: #### E RUR #### [facility] [address] [place] [address] Dr. Berenice Collins Nitrite Ql (U) Negative Normal NEGATIVE [facility] Comment on above: Performed By: #### E RUR #### [facility] [address] [place] [address] Dr. Berenice Collins pH (U) 6.0 [pH] Normal 5-9 [facility] Comment on above: Performed By: #### E RUR #### [facility] [address] [place] [address] Dr. Berenice Collins SPEC GRAVITY >=1.030 Abnormal 1.005-<=1.0 25 [facility] Comment on above: Performed By: #### E RUR #### [facility] [address] [place] [address] Dr. Berenice Collins UA PROTEIN Negative Normal NEGATIVE/ TRACE [facility] Comment on above: Performed By: #### E RUR #### [facility] [address] [place] [address] Dr. Berenice Collins UR MICRO IND NOT INDICATED Normal [facility] Comment on above: Performed By: #### E RUR #### [facility] [address] [place] [address] Dr. Berenice Collins Urobilinogen Qn (U) 0.2 {Ana'U}/dL Normal 0.2 - 1. 0 [facility] Comment on above: Performed By: #### E RUR #### [facility] [address] [place] [address] Dr. Berenice Collins PROF 14(COMP METB)on 021 Albumin [Mass/Vol] 2.3 g/dL Critically low 3.5-5.0 [facility] Comment on above: Performed By: #### E RUR #### [facility] [address] [place] [address] Dr. Berenice Collins Albumin/Globulin [Mass ratio] 0.5 {ratio} Normal [facility] Comment on above: Performed By: #### E RUR #### [facility] [address] [place] [address] Dr. Berenice Collins ALP [Catalytic activity/Vol] 133 U/L Critically high 38-126 [facility] Comment on above: Performed By: #### E RUR #### [facility] [address] [address] [address] Berenice Collins ALT [Catalytic activity/Vol] 24 U/L Normal 9-52 [facility] Comment on above: Performed By: #### E RUR #### [facility] [address] [place] [address] Dr. Berenice Collins Anion gap [Moles/Vol] 18.1 mmol/L Normal [facility] Comment on above: Performed By: #### E RUR #### [facility] [address] [address] [address] Berenice Collins AST [Catalytic activity/Vol] 39 U/L Critically high 14-36 [facility] Comment on above: Performed By: #### E RUR #### [facility] [address] [place] [address] Dr. Berenice Collins Bilirubin [Mass/Vol] 0.4 mg/dL Normal 0.2-1.3 [facility] Comment on above: Performed By: #### E RUR #### [facility] [address] [place] [address] Dr. Berenice Collins Calcium [Mass/Vol] 8.4 mg/dL Normal 8.4-10.2 [facility] Comment on above: Performed By: #### E RUR #### [facility] [address] [place] [address] Dr. Berenice Collins Chloride [Moles/Vol] 104 mmol/L Normal 98-107 [facility] Comment on above: Performed By: #### E RUR #### [facility] [address] [place] [address] Dr. Berenice Collins CO2 [Moles/Vol] 20.5 mmol/L Critically low 22.0-30.0 [facility] Comment on above: Performed By: #### E RUR #### [facility] [address] [place] [address] Dr. Berenice Collins Creatinine [Mass/Vol] 0.76 mg/dL Normal 0.52-1.04 [facility] Comment on above: Performed By: #### E RUR #### [facility] [address] [place] [address] Dr. Berenice Collins EGFR-AF [place] >60 Normal >=60 [facility] Comment on above: Performed By: #### E RUR #### [facility] [address] [place] [address] Dr. Berenice Collins EGFR-NON AF [place] >60 Normal >=60 [facility] Comment on above: Performed By: #### E RUR #### [facility] [address] [place] [address] Dr. Berenice Collins Globulin (S) [Mass/Vol] 4.2 g/dL Normal T [facility] Comment on above: Performed By: #### E RUR #### [facility] [address] [place] [address] Dr. Berenice Collins Glucose [Mass/Vol] 94 mg/dL Normal 74-106 [facility] Comment on above: Performed By: #### E RUR #### [facility] [address] [place] [address] Dr. Berenice Collins Potassium [Moles/Vol] 3.6 mmol/L Normal 3.4-5.0 [facility] Comment on above: Performed By: #### E RUR #### [facility] [address] [place] [address] Dr. Berenice Collins Protein [Mass/Vol] 6.5 g/dL Normal 6.1-8.2 [facility] Comment on above: Performed By: #### E RUR #### [facility] [address] [place] [address] Dr. Berenice Collins Sodium [Moles/Vol] 139 mmol/L Normal 137-145 [facility] Comment on above: Performed By: #### E RUR #### [facility] [address] [place] [address] Dr. Berenice Collins Urea nitrogen [Mass/Vol] 7.0 mg/dL Normal 7.0-17.0 [facility] Comment on above: Performed By: #### E RUR #### [facility] [address] [place] [address] Dr. Berenice Collins Urea nitrogen/Creatinine [Mass ratio] 9.2 mg/mg Normal [facility] Comment on above: Performed By: #### E RUR #### [facility] [id number] Berenice Collins TROPONIN, HIGH SENSITIVITYon 10-03-2021 HSTROP 5.1 pg/mL Normal 4.0-35.5 [facility] Comment on above: Result Comment: CUT- OFF POINTS HAVE BEEN ESTABLISHED BASED ON THE FOURTH UNIVERSAL DEFINITIONS OF MYOCARDIAL INFARCTION. THE UPPER REFERENCE LIMIT (URL) OF TROPONIN, DEFINED THE 99TH PERCENTILE OF cTnI DISTRIBUTION IN A REFERENCE POPULATION, HAS BEEN CONFIRMED THE DECISION THRESHOLD FOR MT DIAGNOSIS. Performed By: #### H STROPN #### [facility] [address] [address] [address] Berenice Collins T4, FreeOrdered By: Mee Tan ght on 03-24-2021 Thyroxine, Free 0.97 ng/dL 0.93 - 1.70 ng/dL [facility] Phone: TSH without ReflexOrdered By : Mee Marsh on 03-24-2021 TSH Qn 3.25 m[IU]/L [employer] Phone: T4, Freeon 10-24-2020 Thyroxine, Free 1.12 ng/dL 0.93 - 1.7 ng/dL [place] TSH without Reflexon 020 TSH Qn 3.72 m[IU]/L [place] Gerard 07-12-2020 ALT [Catalytic activity/Vol] 12 U/L 5 - 33 U/L [place] Jonatan 07-12-2020 AST [Catalytic activity/Vol] 13 U/L <32 [place] Basic Metabolic Panelon 07-02 Anion gap [Moles/Vol] 10 mmol/L 9 - 17 mmol/L [place] Bun/Cre Ratio 13 [place] Calcium [Mass/Vol] 9.6 mg/dL 8.6 - 10. 4 mg/dL [place] Chloride [Moles/Vol] 103 mmol/L 98 - 10 7 mmol/L [place] CO2 [Moles/Vol] 24 mmol/L 20 - 31 mmol/L [place] Creatinine [Mass/Vol] 0.76 mg/dL 0.5 - 0.9 mg/dL [place] GFR >60 >60 mL/min [place] GFR Non- >60 >60 mL/min [place] Glucose [Mass/Vol] 80 mg/dL 70 - 99 mg/dL [place] Potassium [Moles/Vol] 4.3 mmol/L 3.7 - 5.3 mmol/L [place] Sodium [Moles/Vol] 137 mmol/L 135 - 144 mmol/L [place] Urea nitrogen [Mass/Vol] 10 mg/dL 6 - 20 mg/dL [place] CBC Auto Differentialon 07-02 Basophils (Bld) [#/Vol] 0.04 10*3/uL [place] Basophils/100 WBC (Bld) 0 % 0 - 2 % [place] Differential Type NOT REPORTED [place] Eosinophils (Bld) [#/Vol] 0.14 10*3/uL [place] Eosinophils/100 WBC (Bld) 1 % 1 - 4 % [place] Erythrocyte distribution width (RBC) [Ratio] 13.4 % 11.8 - 14.4 % [place] Hematocrit (Bld) [Volume fraction] 40.4 % 36.3 - 47.1 % [place] Hemoglobin (Bld) [Mass/Vol] 13.1 g/dL 11.9 - 15.1 g/dL [place] Immature granulocytes (Bld) [#/Vol] 1 % High 0 [place] Immature granulocytes (Bld) [#/Vol] 0.05 10*3/uL [place] Interpretation and review of laboratory results Abnormal [place] Lymphocytes (Bld) [#/Vol] 2.59 10*3/uL [place] Lymphocytes/100 WBC (Bld) 24 % 24 - 43 % [place] MCH (RBC) [Entitic mass] 29.4 pg 25. 2 - 33.5 pg [place] MCHC (RBC) [Mass/Vol] 32.4 g/dL 28.4 - 34.8 g/dL [place] MCV (RBC) [Entitic vol] 90.6 fL 82.6 - 102.9 fL [place] Monocytes (Bld) [#/Vol] 0.74 10*3/uL [place] Monocytes/100 WBC (Bld) 7 % 3 - 12 % [place] Platelet mean volume (Bld) [Entitic vol] 11.0 fL 8.1 - 13.5 fL [place] Platelets (Bld) [#/Vol] 187 10*3/uL [place] Platelets (Bld) [#/Vol] NOT REPORTED [place] RBC (Bld) [#/Vol] 4.46 10*6/uL 3.95 - 5.1 1 m/uL [place] RBC morphology finding Nom (Bld) NOT REPORTED [place] Segmented neutrophils/100 WBC (Bld) 67 % High 36 - 65 % [place] Segs Absolute 7.37 [place] WBC (Bld) [#/Vol] 10.9 10*3/uL [place] WBC (Bld) [#/Vol] 0.0 10*3/uL 0.0 per 10 0 WBC [place] WBC Morphology NOT REPORTED [place] Lipid Panelon 07-12-2020 Cholesterol [Mass/Vol] 172 mg/dL <200 [place] Comment on above: Cholesterol Guidelines: <200 Desirable 200-240 Borderline >240 Undesirable Cholesterol in HDL [Mass/Vol] 39 mg/dL Low >40 [place] Comment on above: HDL Guidelines: <40 Undesirable 40-59 Borderline >59 Desirable Cholesterol in LDL [Mass/Vol] 110 mg/dL 0 - 130 mg/dL [place] Comment on above: LDL Guidelines: <100 Desirable 100-129 Near to/above Desirable 130-159 Borderline >159 Undesirable Direct (measured) LDL and calculated LDL are not interchangeable tests. Cholesterol in VLDL [Mass/Vol] NOT REPORTED 1 - 30 mg/dL [place] Cholesterol.total/Cholest deni in HDL [Mass ratio] 4.4 {ratio} <5 [place] Interpretation and review of laboratory results Abnormal [place] Triglyceride [Mass/Vol] 114 mg/dL <150 [place] Comment on above: Triglyceride Guidelines: <150 Desirable 150-199 Borderline 200-499 High >499 Very high Based on AHA Guidelines for fasting triglyceride, September 2012. Metabolic Panelon 07-12-2020 GFR/1.73 sq M predicted among non-blacks MDRD (S/P/Bld) [Vol rate/Area] [place] Comment on above: Stage 1: Some [...] body mass. Additional eGFR calculator available at: http://www.BigRoad/multiple_crcl_2012.htm T4, Freeon 07-12-2020 Thyroxine, Free 1.07 ng/dL 0.93 - 1.7 ng/dL [place] TSH without Reflexon 020 TSH Qn 4.00 m[IU]/L [place] Estradiolon 03-22-2020 Estradiol 80 pg/mL 27 - 314 pg/mL [place] Comment on above: FEMALES: Normally menstruating Luteal phase 33-298 Follicular phase 27-156 Midcycle phase 48-314 Postmenopausal (untreated) 5-50 Fulvestrant treatment will show an increased estradiol concentration with this methodology. Alternate methodologies are available upon request. Follicle Stimulating Hormone on 03-22-2020 FSH 2.4 U/L 1.7 - 21.5 U/L [place] Comment on above: Reference Range: Male: 1.5-12.4 Ovulating Female: Follicular Phase 3.5-12.5 Ovulation Phase 4.7-21.5 Luteal Phase 1.7-7.7 Postmenopausal Female: 25.8-134.8 HCG, Quantitative, on 03-22-2020 hCG Quant <1 <5 IU/L [place] Comment on above: Non-preg premeno <=5 [...] LH 6.0 U/L 1 - 95.6 U/L [place] Comment on above: Reference Range: Male: 1.7-8.6 Ovulating Female: Follicular Phase 2.4-12.6 Ovulation Phase 14.0-95.6 Luteal Phase 1.0-11.4 Postmenopausal Female: 7.7-58.5 Progesteroneon 03-22-2020 Progesterone 10.21 ng/mL [place] Comment on above: FEMALE (healthy): Follicular phase 0.06-0.89 Ovulation phase 0.12-12.00 Luteal phase 1.83-23.90 Postmenopausal <0.13 Prolactinon 03-22-2020 Prolactin 14.45 ug/L 4.79 - 23.3 ug/L [place] Comment on above: The presence of macr oprolactin may cause interference in female patients with various endocrinological diseases or during . TSH without Reflexon 020 TSH Qn 3.39 m[IU]/L [place] ABO/RHon 03-14-2020 ABO/Rh Positive [place] Basic Metabolic Panel w/ Ref jacob to MGon 03-14-2020 Anion gap [Moles/Vol] 13 mmol/L 9 - 17 mmol/L [place] Bun/Cre Ratio 17 [place] Calcium [Mass/Vol] 9.0 mg/dL 8.6 - 10. 4 mg/dL [place] Chloride [Moles/Vol] 101 mmol/L 98 - 10 7 mmol/L [place] CO2 [Moles/Vol] 24 mmol/L 20 - 31 mmol/L [place] Creatinine [Mass/Vol] 0.76 mg/dL 0.5 - 0.9 mg/dL [place] GFR >60 >60 mL/min [place], [place] GFR Non- >60 >60 mL/min [place] Glucose [Mass/Vol] 90 mg/dL 70 - 99 mg/dL [place] Interpretation and review of laboratory results Abnormal [place] Potassium [Moles/Vol] 3.6 mmol/L Low 3.7 - 5.3 mmol/L [place] Sodium [Moles/Vol] 138 mmol/L 135 - 144 mmol/L [place] Urea nitrogen [Mass/Vol] 13 mg/dL 6 - 20 mg/dL [place] CBC Auto Differentialon 03-02 Basophils (Bld) [#/Vol] 0.05 10*3/uL [place] Basophils/100 WBC (Bld) 0 % 0 - 2 % [place] Differential Type NOT REPORTED [place] Eosinophils (Bld) [#/Vol] 0.13 10*3/uL [place] Eosinophils/100 WBC (Bld) 1 % 1 - 4 % [place] Erythrocyte distribution width (RBC) [Ratio] 12.7 % 11.8 - 14.4 % [place] Hematocrit (Bld) [Volume fraction] 40.8 % 36.3 - 47.1 % [place] Hemoglobin (Bld) [Mass/Vol] 13.8 g/dL 11.9 - 15.1 g/dL [place] Immature granulocytes (Bld) [#/Vol] 0 % 0 [place] Immature granulocytes (Bld) [#/Vol] 0.03 10*3/uL [place] Interpretation and review of laboratory results Abnormal [place] Lymphocytes (Bld) [#/Vol] 2.65 10*3/uL [place] Lymphocytes/100 WBC (Bld) 23 % Low 24 - 43 % [place] MCH (RBC) [Entitic mass] 29.6 pg 25. 2 - 33.5 pg [place] MCHC (RBC) [Mass/Vol] 33.8 g/dL 28.4 - 34.8 g/dL [place] MCV (RBC) [Entitic vol] 87.4 fL 82.6 - 102.9 fL [place] Monocytes (Bld) [#/Vol] 0.72 10*3/uL [place] Monocytes/100 WBC (Bld) 6 % 3 - 12 % [place] Platelet mean volume (Bld) [Entitic vol] 11.1 fL 8.1 - 13.5 fL [place] Platelets (Bld) [#/Vol] NOT REPORTED [place] Platelets (Bld) [#/Vol] 217 10*3/uL [place] RBC (Bld) [#/Vol] 4.67 10*6/uL 3.95 - 5.1 1 m/uL [place] RBC morphology finding Nom (Bld) NOT REPORTED [place] Segmented neutrophils/100 WBC (Bld) 70 % High 36 - 65 % [place] Segs Absolute 7.86 [place] WBC (Bld) [#/Vol] 0.0 10*3/uL 0.0 per 10 0 WBC [place] WBC (Bld) [#/Vol] 11.4 10*3/uL [place] WBC Morphology NOT REPORTED [place] HCG, Quantitative, on 03-14-2020 hCG Quant <1 <5 IU/L [place] Comment on above: Non-preg premeno <=5 [...] predicted among non-blacks MDRD (S/P/Bld) [Vol rate/Area] [place] Comment on above: Average GFR for 20-2 9 years old: 116 mL/min/1.73sq m Chronic Kidney Disease: <60 mL/min/1.73sq m Kidney failure: <15 mL/min/1.73sq m eGFR calculated using average adult body mass. Additional eGFR calculator available at: http://www.BigRoad/multiple_crcl_2012.htm Stage 1: Some kidney damage normal GFR Stage 2: Mild kidney damage GFR 60-89 Stage 3: Moderate kidney damage GFR 30-59 Stage 4: Severe kidney damage GFR 15-29 Stage 5: Severe kidney damage GFR <15 ESRD - chronic treatment by dialysis or transplant Microscopic Urinalysison Amorphous, UA NOT REPORTED None [place] Bacteria, UA NOT REPORTED None [place], [place] Casts UA NOT REPORTED /LPF [place] Crystals, UA NOT REPORTED None /HPF [place] Epithelial Cells UA 5 TO 10 [place] Interpretation and review of laboratory results Abnormal [place] Mucus, UA 2+ Abnormal None [place] Other Observations UA NOT REPORTED NOT REQ. [place] RBC (U) [#/Vol] [facility] [place] Renal Epithelial, UA NOT REPORTED 0 /HPF [place] Trichomonas, UA NOT REPORTED None [facility] [place] [place] WBC, UA 2 TO 5 [place] Yeast, UA NOT REPORTED None [place] - [place] Urinalysis, reflex to micros copicon 03-14-2020 Bilirubin Urine Negative NEGATIVE [place] Color, UA YELLOW YELLOW [place] Glucose, Ur Negative NEGATIVE [place] Interpretation and review of laboratory results Abnormal [place] Ketones Ql (U) Negative NEGATIVE [place] Leukocyte esterase Test strip Ql (U) Negative NEGATIVE [place] Nitrite, Urine Negative NEGATIVE [place] pH, UA 6.0 [place] Protein (U) [Mass/Vol] Negative NEGATIVE [place] Specific [place], UA >1.030 High [place], [place] Turbidity UA SLIGHTLY CLOUDY Abnormal CLEAR [place] Urinalysis Comments NOT REPORTED [place], [place] Urine Hgb Negative NEGATIVE [place] Urobilinogen, Urine Normal Normal [place] CBC Auto Differentialon Basophils (Bld) [#/Vol] 0.04 10*3/uL [place] Basophils/100 WBC (Bld) 0 % 0 - 2 % [place] Differential Type NOT REPORTED [place] Eosinophils (Bld) [#/Vol] 0.21 10*3/uL [place] Eosinophils/100 WBC (Bld) 2 % 1 - 4 % [place] Erythrocyte distribution width (RBC) [Ratio] 13.6 % 11.8 - 14.4 % [place] Hematocrit (Bld) [Volume fraction] 43.3 % 36.3 - 47.1 % [place] Hemoglobin (Bld) [Mass/Vol] 14.0 g/dL 11.9 - 15.1 g/dL [place] Immature granulocytes (Bld) [#/Vol] 0 % 0 [place] Immature granulocytes (Bld) [#/Vol] 0.03 10*3/uL [place] Interpretation and review of laboratory results Abnormal [place] Lymphocytes (Bld) [#/Vol] 2.15 10*3/uL [place] Lymphocytes/100 WBC (Bld) 24 % 24 - 43 % [place] MCH (RBC) [Entitic mass] 28.2 pg 25. 2 - 33.5 pg [place] MCHC (RBC) [Mass/Vol] 32.3 g/dL 28.4 - 34.8 g/dL [place] MCV (RBC) [Entitic vol] 87.1 fL 82.6 - 102.9 fL [place] Monocytes (Bld) [#/Vol] 0.68 10*3/uL [place] Monocytes/100 WBC (Bld) 7 % 3 - 12 % [place] Platelet mean volume (Bld) [Entitic vol] 11.2 fL 8.1 - 13.5 fL [place] Platelets (Bld) [#/Vol] NOT REPORTED [place] Platelets (Bld) [#/Vol] 215 10*3/uL [place] RBC (Bld) [#/Vol] 4.97 10*6/uL 3.95 - 5.1 1 m/uL [place] RBC morphology finding Nom (Bld) NOT REPORTED [place] Segmented neutrophils/100 WBC (Bld) 67 % High 36 - 65 % [place] Segs Absolute 6.04 [place] WBC (Bld) [#/Vol] 9.2 10*3/uL [place] WBC (Bld) [#/Vol] 0.0 10*3/uL 0.0 per 10 0 WBC [place] WBC Morphology NOT REPORTED [place] Comprehensive Metabolic Pane l w/ Reflex to MGon 08-09-2019 Albumin [Mass/Vol] 4 g/dL 3.5 - 5.2 g/dL [place] Albumin/Globulin [Mass ratio] 1.3 {ratio} [place] ALP [Catalytic activity/Vol] 83 U/L 35 - 104 U/L [place] ALT [Catalytic activity/Vol] 10 U/L 5 - 33 U/L [place] Anion gap [Moles/Vol] 13 mmol/L 9 - 17 mmol/L [place] AST [Catalytic activity/Vol] 12 U/L <32 [place] Bilirubin Ql (U) 0.23 mg/dL Low 0.3 - 1.2 mg/dL [place] Bun/Cre Ratio 21 [place] Calcium [Mass/Vol] 9.4 mg/dL 8.6 - 10. 4 mg/dL [place] Chloride [Moles/Vol] 104 mmol/L 98 - 10 7 mmol/L [place] CO2 [Moles/Vol] 21 mmol/L 20 - 31 mmol/L [place] Creatinine [Mass/Vol] 0.81 mg/dL 0.5 - 0.9 mg/dL [place] GFR >60 >60 mL/min [place] GFR Non- >60 >60 mL/min [place] Glucose [Mass/Vol] 121 mg/dL High 70 - 99 mg/dL [place] Interpretation and review of laboratory results Abnormal [place] Potassium [Moles/Vol] 4.1 mmol/L 3.7 - 5.3 mmol/L [place] Protein [Mass/Vol] 7.0 g/dL 6.4 - 8.3 g/dL [place] Sodium [Moles/Vol] 138 mmol/L 135 - 144 mmol/L [place] Urea nitrogen [Mass/Vol] 17 mg/dL 6 - 20 mg/dL [place] HCG Qualitative, Serumon hCG Qual Negative NEGATIVE [place] Comment on above: Specimens with hCG l evels near the threshold of the test (25 mIU/mL) may give a negative or indeterminate result. In such cases, another test should be performed with a new specimen in 48-72 hours. If early is suspected clinically in this setting, correlation with quantitative serum b-hCG level is suggested. [facility] has confirmed the use of plasma for this test. This has not been cleared or approved by the U.S. Food and Drug Administration. The FDA has determined that such clearance is not necessary. Lipaseon 08-09-2019 Lipase [Catalytic activity/Vol] 35 U/L 13 - 60 U/L [place] Metabolic Panelon 08-09-2019 GFR/1.73 sq M predicted among non-blacks MDRD (S/P/Bld) [Vol rate/Area] [place] Comment on above: Stage 1: Some [...] body mass. Additional eGFR calculator available at: http://www.BigRoad/multiple_crcl_2012.htm Microscopic Urinalysison Amorphous, UA NOT REPORTED None [place] Bacteria, UA 1+ Abnormal None [place] Casts UA NOT REPORTED /LPF [place] Crystals UA NOT REPORTED None /HPF [place], [place] Epithelial Cells UA 0 TO 2 [place] Interpretation and review of laboratory results Abnormal [place], [place] Mucus, UA TRACE Abnormal None [place] Other Observations UA NOT REPORTED NOT REQ. M [place], [place] RBC (U) [#/Vol] None [place], [place] Renal Epithelial, Urine NOT REPORTED 0 /HPF [place] Trichomonas, UA NOT REPORTED None [facility] [place] WBC, UA None [place] Yeast, UA NOT REPORTED None [place] Urinalysis Reflex to Culture on 08-09-2019 Bilirubin Urine Negative NEGATIVE [place] Color, UA YELLOW YELLOW [place] Glucose, Ur Negative NEGATIVE [place] Interpretation and review of laboratory results Abnormal [place], [place] Ketones Ql (U) Negative NEGATIVE [place] Leukocyte esterase Test strip Ql (U) Negative NEGATIVE [facility] Nitrite, Urine Negative NEGATIVE [facility] pH, UA 5.5 [facility] Protein (U) [Mass/Vol] Negative NEGATIVE [facility] [place] Specific [place], UA >1.030 [facility] [place] Turbidity UA CLEAR CLEAR [facility] [place] Urinalysis Comments NOT REPORTED [facility] Urine Hgb Negative NEGATIVE [facility] Urobilinogen, Urine Normal Normal [facility] Vital Signs Date Time Vital Sign Value Performing Clinician Facility 06-17-2024 03:29-0400 Heart rate 93 /min Barbara Carlton MD [facility] 06-17-2024 03:29-0400 Respiratory rate 12 /min Barbara Carlton MD Work Phone[facility] 06-17-2024 03:29-0400 SaO2% (BldA) [Mass fraction] 98 % Barbara Carlton MD Work Phone: [facility] 06-17-2024 02:59-0400 Diastolic blood pressure 85 mm[Hg] Barbara Carlton MD Work Phone: [facility] 06-17-2024 02:59-0400 Systolic blood pressure 111 mm[Hg] Barbara Carlton MD Work Phone: [facility] 06-17-2024 00:41-0400 Body temperature 98.1 [degF] Barbara Carlton MD Work Phone: [facility] [employer] 06-17-2024 00:39-0400 Body height 167.6 cm Barbara Carlton MD Work Phone: [facility] [employer] 06-17-2024 00:39-0400 Body mass index (BMI) [Ratio] 43.58 kg/m2 Barbara Carlton MD Work Phone: [facility] [employer] 06-17-2024 00:39-0400 Body weight 122.47 kg Barbara Carlton MD Work Phone[facility] [employer] 02-26-2024 17:51-0400 Body height 168.15 cm [employer] 02-26-2024 17:51-0400 Body mass index (BMI) [Ratio] 46.57 kg/m2 [employer] 02-26-2024 17:51-0400 Body surface area Derived from formula 2.48 m2 [employer] 02-26-2024 17:51-0400 Body weight 131.69 kg [employer] 02-26-2024 17:51-0400 Diastolic blood pressure 82 mm[Hg] [employer] 02-26-2024 17:51-0400 Heart rate 82 /min [employer] 02-26-2024 17:51-0400 Systolic blood pressure 126 mm[Hg] [employer] 03-26-2020 18:05-0400 BMI (Body Mass Index) 29.62 kg/m2 [facility] [place] 03-26-2020 18:05-0400 Body Temperature 97 [degF] Quinton [facility]- [facility], [place] 03-26-2020 18:05-0400 Body weight 80.74 kg [facility] [place] 03-26-2020 18:05-0400 BP Diastolic 84 mm[Hg] [facility] [place] 03-26-2020 18:05-0400 BP Systolic 139 mm[Hg] [facility] [place] 03-26-2020 18:05-0400 Height 165.1 cm [facility] [place] 03-26-2020 18:05-0400 Pulse (Heart Rate) 104 /min [facility] [place] 03-26-2020 18:05-0400 Pulse Oximetry 98 % Quinton [facility] [place] 03-26-2020 18:05-0400 Respiratory Rate 20 /min Qu[facility] [place] 03-14-2020 15:54-0400 BMI (Body Mass Index) 31.47 kg/m2 Mee Marsh [facility], [place] 03-14-2020 15:54-0400 Body Temperature 97.39 [degF] Mee Marsh [facility] 03-14-2020 15:54-0400 Body weight 88.45 kg Mee Marsh [facility] , [place] 03-14-2020 15:54-0400 BP Diastolic 110 mm[Hg] Meekia Marsh [facility] , [place] 03-14-2020 15:54-0400 BP Systolic 155 mm[Hg] Mee Marsh [facility] , [place] 03-14-2020 15:54-0400 Pulse (Heart Rate) 114 /min Mee Marsh [facility], [place] 03-14-2020 15:54-0400 Pulse Oximetry 97 % Mee Marsh [facility] , [place] 03-14-2020 15:54-0400 Respiratory Rate 14 /min Mee Marsh [facility], [place] 08-09-2019 08:34-0400 Pulse (Heart Rate) 99 /min Tomdoreen De Jesus [facility], [place] 08-09-2019 08:34-0400 Pulse Oximetry 98 % [facility] [place] 08-09-2019 08:34-0400 Respiratory Rate 22 /min [facility] [place] [place] 08-09-2019 07:05-0400 BP Diastolic 83 mm[Hg] [facility]- [place] , [place] 08-09-2019 07:05-0400 BP Systolic 119 mm[Hg] [facility] [place] , [place] 08-09-2019 05:43-0400 BMI (Body Mass Index) 27.12 kg/m2 [facility] [place] 08-09-2019 05:43-0400 Body Temperature 98.1 [degF] [facility] [place] 08-09-2019 05:43-0400 Body weight 76.2 kg Tom [facility] , [place] 08-09-2019 05:43-0400 Height 167.6 [facility] [place] Encounters Encounter Date Encounter Type Care Provider Facility Start: 09-15-2024 End: 09-15-2024 ambulatory SAVITA GARCIA Not Available Start: 09-15-2024 End: 09-15-2024 Bamboo flowsheet Savita MARSHALL Work Phone: [facility] Start: 09-15-2024 End: 09-15-2024 Bamboo flowsheet Savita MARSHALL Work Phone: [facility] Start: 06-17-2024 End: 06-17-2024 Emergency department patient visit Barbara Carlton MD Work Phone: [facility] ED Comment on above: Chest wall pain (Monica duran Dx) Start: 05-19-2024 End: 05-19-2024 ambulatory JUAN DAVID JUDITH Not Available Start: 05-08-2024 End: 05-08-[address] [facility] Start: 04-15-2024 End: 04-15-2024 ambulatory SAVITA GARCIA Not Available Start: 04-03-2024 End: 04-03-2024 ambulatory SAVITA L JOSE [facility] Start: 03-18-2024 End: 03-18-2024 ambulatory SAVITA JOSE Not Available Start: 03-06-2024 End: 03-06-2024 [facility] Start: 02-28-2024 End: 02-28-2024 ambulatory MEE W MIGHT [facility] Start: 02-28-2024 End: 02-28-2024 Subsequent hospital visit by physician Francis Maxewll [facility] Comment on above: Arrived Start: 02-26-2024 Procedure Aniyah Rosa rne Other [facility] Office Start: 02-21-2024 End: 02-21-2024 [facility] Start: 02-14-2024 End: 02-14-2024 ambulatory MEE Yusra Niño [facility] Start: 02-13-2024 End: 02-13-2024 ambulatory SAVITA GARCIA Not Available Start: 02-07-2024 End: 02-09-2024 ambulatory [facility] Start: 02-07-2024 End: 02-07-2024 Subsequent hospital visit by physician Victor Manuel Rowe PT [facility] Comment on above: Arrived Start: 01-16-2024 End: 01-16-2024 ambulatory JUAN DAVID LEVY Not Available Start: 12-13-2023 End: 12-13-2023 [facility] Start: 07-12-2023 End: 07-12-2023 ambulatory [facility]EE [facility]SH [facility] Start: 09-04-2022 End: 09-04-[address] JUAN DAVID LEVY Facility:[facility]1 Start: 06-05-2022 End: 06-06-[address] JUAN DAVID LEVY Facility:[facility]1 Start: 05-31-2022 End: 06-01-[address] JUAN DAVID LEVY Facility:[facility]1 Start: 11-14-2021 Encounter for preprocedural laboratory examination PHU MCGEE [facility] Start: 11-11-2021 Encounter for preprocedural laboratory examination PHUJorge MCGEE [facility] Start: 11-08-2021 End: 11-09-2021 Evaluation and management [...] by physician Mee Bright CNP Work Phone: [facility] Laboratory Comment on above: Fatigue due to depre ssion; 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 Start: 10-24-2020 End: 10-24-2020 Subsequent hospital visit by physician Cady Lab Drawing Room [facility] Laboratory Comment on above: Hypothyroidism due t o Clint's thyroiditis Start: 07-12-2020 End: 07-12-2020 Subsequent hospital visit by physician Mee Marsh [facility] Laboratory Comment on above: Hypothyroidism due t o Clint's thyroiditis Start: 03-26-2020 End: 03-26-2020 Emergency department patient visit Quinton Leonel Cherelle Work Phone: [facility] ED Comment on above: Laceration of left l ower extremity, initial encounter (Primary Dx) Start: 03-22-2020 End: 03-22-2020 Subsequent hospital visit by physician Mee Marsh [facility] Laboratory Comment on above: Screen for STD (sexu ally transmitted disease); SAB (spontaneous ) Start: 03-14-2020 End: 03-14-2020 Emergency department patient visit [facility] ED Comment on above: Vaginal bleeding (Pr imary Dx) Start: 08-09-2019 End: 08-09-2019 Emergency department patient visit Tom De Jesus Work Phone: [facility] ED Comment on above: Abdominal pain, righ t lower quadrant (Primary Dx); Mesenteric adenitis Procedures Date Procedure Procedure Detail Performing Clinician Start: 06-17-2024 Ct thorax w/contrast material Barbara Carlton MD Work Phone: Start: 06-17-2024 Radiologic exam ches t single view Barbara Carlton MD Work Phone: Start: 06-17-2024 Basic metabolic [...] Assay of free thyroxine Mee W Might POWER CLEANER OPERATOR - BROADCAST METEOROLOGIST Work Phone: Start: 10-24-2020 Assay of free [...] Phone: Start: 03-14-2020 Gonadotropin chorion ic quantitative Felotn Hinds Work Phone: Start: 03-14-2020 Urinalysis microscop ic only Felton Hinds Work Phone: Start: 03-14-2020 Urnls dip stick/tabl et rgnt auto w/o microscopy Felton Hinds Work Phone: Start: 08-09-2019 Us transvaginal Tom [facility] [employer] Work Phone: Start: 08-09-2019 Ct abdomen & pelvis w/contrast material Tom [facility] [employer] Work Phone: Start: 08-09-2019 Urinalysis microscop ic only Tom [facility] [employer] Work Phone: Start: 08-09-2019 Urnls dip stick/tabl [...] 05/24/2025 4:00 PM EDT Office Visit [facility] [address] [place] [address] Juan David Levy DO [address] [place] [address] [facility] Start: 04-16-2025 End: 04-16-2025 Patient encounter procedure 04/16/2025 7:00 AM EDT Office Visit [facility] [address] [place] [place] [phone] Mee Marsh, POWER CLEANER OPERATOR - BROADCAST METEOROLOGIST [address] [facility] [place] [address] Yearly [facility] Comment on above: Yearly Start: 12-11-2024 Depression Monitoring [facility] Start: 12-11-2024 DTaP/Tdap/Td vaccine (1 - Tdap) DTaP/Tdap/Td vaccine (1 - Tdap) [facility] Comment on above: Postponed from 08/19 (Patient Refused) Start: 12-11-2024 Screening for malign ant neoplasm of cervix Pap smear [facility] Comment on above: Postponed from 08/19 (Not Indicated) Start: 10-11-2024 Hepatitis B vaccine (1 of 3 - 3-dose series) Hepatitis B vaccine (1 of 3 - 3-dose series) [facility] Comment on above: Postponed from 08/19 (Patient Refused) Start: 10-11-2024 Influenza vaccination Flu vaccine (# 1) [facility] Comment on above: Postponed from 07/02 (Patient Refused) Start: 09-15-2024 End: 09-15-2024 Patient encounter procedure 09/15/2024 2:50 PM EDT Office Visit [facility] [address] [address] Savita Garcia PA [address] [place] [address] Arrived [facility] Comment on above: Arrived Start: 07-02-2024 Influenza vaccination Flu vaccine (# 1) [facility] Start: 05-30-2024 COVID-19 Vaccine (#1) COVID-19 Vacci ne (#1) [facility] Comment on above: Postponed from 02/16 (Not Indicated) Start: 05-30-2024 Hepatitis C screening Hepatitis C sc rasheed [facility] Comment on above: Postponed from 08/19 (Patient Refused) Start: 04-10-2024 End: 04-10-2024 Patient encounter procedure 04/10/2024 9:00 AM EDT Office Visit [facility] [address] [place] [address] Mee Marsh, POWER CLEANER OPERATOR - BROADCAST METEOROLOGIST [address] [place] [address] 6 month [facility] Comment on above: 6 month Start: 03-06-2024 End: 03-06-2024 Patient encounter procedure 03/06/2024 10:45 AM EDT Appointment [facility] [address] [place] [phone] Francis Maxwell, EXTRUDER TENDER [facility] Start: 03-06-2024 Subsequent hospital visit by physician 03/06/2024 10:45 AM EDT Hospital Encounter [facility] [address] [place] [phone] Francis Maxwell, EXTRUDER TENDER [facility] Start: 02-28-2024 End: 02-28-2024 Patient encounter procedure 02/28/2024 10:45 AM EDT Appointment [facility] [address] [place] [phone] Francis Maxwell, EXTRUDER TENDER [facility] Start: 02-21-2024 End: 02-21-2024 Patient encounter procedure 02/21/2024 10:00 AM EDT Appointment [facility] [address] [place] [phone] Francis Maxwell, EXTRUDER TENDER [facility] Start: 02-14-2024 End: 02-14-2024 Patient encounter procedure 02/14/2024 9:30 AM EDT Appointment [facility] [address] [place] [phone] Em Alonso, NITHYA [facility] Start: 03-10-2022 COVID-19 Vaccine (1) COVID-19 Vaccin e (1) [facility] [employer] Phone: Comment on above: Postponed from 08/19 (Patient Refused) Start: 03-10-2022 Hepatitis C screening Hepatitis C sc reen [facility] [employer] Phone: Comment on above: Postponed from 08/19 (Patient Refused) Start: 09-09-2021 Influenza vaccination [place] Comment on above: Postponed from 08/02 (Patient Refused) Postponed from 08/02 (Patient Refused) Start: 06-29-2021 DTaP/Tdap/Td vaccine (1 - Tdap) DTaP/Tdap/Td vaccine (1 - Tdap) [place] Comment on above: Postponed from 08/19 (Patient Refused) Start: 06-29-2021 HPV vaccine (1 - 2-d ose series) HPV vaccine (1 - 2-dose series) [place] Comment on above: Postponed from 08/19 (Patient Refused) Start: 06-29-2021 Pneumococcal 0-64 ye ars Vaccine (1 of 1 - PPSV23) Pneumococcal 0-64 years Vaccine (1 of 1 - PPSV23) [place] Comment on above: Postponed from 08/19 (Patient Refused) Start: 06-29-2021 Screening for malign ant neoplasm of cervix Cervical cancer screen [place] Comment on above: Postponed from 08/19 (Patient Refused) Start: 06-29-2021 Varicella vaccine (1 of 2 - 2-dose childhood series) Varicella vaccine (1 of 2 - 2-dose childhood series) [place] Comment on above: Postponed from 08/19 (Patient Refused) Start: 06-26-2021 End: 06-26-2021 Patient encounter procedure 06/26/2021 Office Visit Primary Care Might, Mee Meng, POWER CLEANER OPERATOR - BROADCAST METEOROLOGIST [address] [facility] [place] [address] [facility] Start: 03-27-2021 End: 03-27-2021 Patient encounter procedure 03/27/2021 Office Visit Primary Care Mee Marsh, POWER CLEANER OPERATOR - BROADCAST METEOROLOGIST [address] [facility] [place] [address] [phone] [facility] Start: 03-22-2021 Screening for Chlamy rosalio trachomatis Chlamydia screen [place] Start: 10-26-2020 End: 10-26-2020 Office Visit 10/26/2020 Office Visit Primary Care Mee Marsh, POWER CLEANER OPERATOR - BROADCAST METEOROLOGIST [address] [facility] [place] [phone] [facility] Start: 08-02-2020 Influenza vaccination [place] Start: 07-28-2020 End: 07-28-2020 Office Visit 07/28/2020 Office Visit Obstetrics and Gynecology Aislinn Proctor POWER CLEANER OPERATOR - CNM [address] [facility] [place] [address] [phone] [facility] OBSTETRICS & GYNECOLOGY Start: 07-13-2020 End: 07-13-2020 Office Visit 07/13/2020 Office Visit Primary Care Mee Marsh POWER CLEANER OPERATOR - BROADCAST METEOROLOGIST [address] [facility] [place] [phone] [facility] Start: 06-01-2020 Cervical cancer screen Cervical canc er screen [place] Comment on above: Postponed from 08/19 (Patient Refused) Start: 06-01-2020 Chlamydia screen Chlamydia screen [place] Comment on above: Postponed from 01/02 (Patient Refused) Start: 06-01-2020 DTaP/Tdap/Td vaccine (1 - Tdap) DTaP/Tdap/Td vaccine (1 - Tdap) [place] Comment on above: Postponed from 08/19 (Patient Refused) Start: 06-01-2020 HPV vaccine (1 - 2-d ose series) HPV vaccine (1 - 2-dose series) [place] Comment on above: Postponed from 08/19 (Patient Refused) Start: 06-01-2020 HPV vaccine (1 - Fem rimma 3-dose series) HPV vaccine (1 - Female 3-dose series) [place] Comment on above: Postponed from 08/19 (Patient Refused) Start: 06-01-2020 Pneumococcal 0-64 ye ars Vaccine (1 of 1 - PPSV23) Pneumococcal 0-64 years Vaccine (1 of 1 - PPSV23) [place] Comment on above: Postponed from 08/19 (Patient Refused) Start: 06-01-2020 Screening for Chlamy rosalio trachomatis Chlamydia screen [place] Comment on above: Postponed from 01/02 (Patient Refused) Start: 06-01-2020 Screening for malign ant neoplasm of cervix Cervical cancer screen [place] Comment on above: Postponed from 08/19 (Patient Refused) Start: 06-01-2020 Varicella Vaccine (1 of 2 - 13+ 2-dose series) Varicella Vaccine (1 of 2 - 13+ 2-dose series) [place] Comment on above: Postponed from 08/19 (Patient Refused) Start: 06-01-2020 Varicella vaccine (1 of 2 - 2-dose childhood series) Varicella vaccine (1 of 2 - 2-dose childhood series) [place] Comment on above: Postponed from 08/19 (Patient Refused) Start: 12-03-2019 End: 12-03-2019 Office Visit 12/03/2019 Office Visit Primary Care Mee Marsh, POWER CLEANER OPERATOR - BROADCAST METEOROLOGIST [address] [place] [address] [phone] [facility] [place] Start: 08-02-2019 Influenza vaccination Flu vaccine (# 1) [place] Start: 2013 Hepatitis C screening Hepatitis C sc reen [facility] Start: 02-17-1996 COVID-19 Vaccine (#1) COVID-19 Vacci ne (#1) [facility] End: 03-22-2020 C.trachomatis N.gonorrhoeae DNA, Urine C.trachomatis N.gonorrhoeae DNA, Urine Microbiology Routine Screen for STD (sexually transmitted disease) 1 Occurrences starting 03/22/2020 until 03/22/2020 [facility]: 1 Occurrences starti ng 03/22/2020 until 03/22/2020 C.trachomatis N.gonorrhoeae DNA, Urine C.trachomatis N.gonorrhoeae DNA, Urine Microbiology Routine Screen for STD (sexually transmitted disease) 03/22/2020 5:37 PM EDT [facility]EL[facility] W IV CONTRAST CT ABDOMEN PELVIS W IV CONTRAST Imaging STAT 08/09/2019 7:20 AM EDT [facility] Lead EKG 12 Lead ECG STAT 06/17/2024 12:48 AM EDT [facility] US NON OB TRANSVAGINAL US NON OB TRANSVAGINAL Imaging STAT 08/09/2019 7:46 AM EDT [facility] Payers Date Payer Category Payer Medicaid (Managed Care) [facility] MEDICA[facility] [id number] 2020 Unknown [employer] [address] [id number] 2020-Present [phone] [address] [place] [address] [id number] 2020 Unknown [facility] xxxxxxxxxxxx 2020-Present [phone] [address] [place] [address] xxxxxxxxxxxx [id number] 2019 Private Health Insurance [facility] PLU xxxxxxxxx 2019-Present [phone] [facility] [address] [place] [address] xxxxxxxxx [id number] .[id number] 1995 Unknown [id number] 2.16.840.1.914894.3.579.2 .593 1995 Unknown [id number] 2.16.840.1.857832.3.579.2 .593 1995 Unknown [id number] 2.16.840.1.280400.3.579.2 .593 1995 Unknown [id number] 2.16.840.1.718164.3.579.2 .593 1995 Unknown [id number] 2.16.840.1.378557.3.579.2 .593 1995 Unknown [id number] 2.16.840.1.183044.3.579.2 .593 1995 Unknown [id number] 2.16.840.1.255145.3.579.2 .593 1995 Unknown [id number] 2.16.840.1.534013.3.579.2 .593 1995 Unknown [id number] 2.16.840.1.567042.3.579.2 .1286 1995 Unknown [id number] 2.16.840.1.051200.3.579.2 .173 1995 Unknown [id number] 2.16.840.1.205554.3.579.2 .173 1995 Unknown [id number] 2.16.840.1.734708.3.579.2 .173 1995 Unknown [id number] 2.16.840.1.582548.3.579.2 .173 1995 Unknown [id number] 2.16.840.1.882506.3.579.2 .173 1995 Unknown [id number] 2.16.840.1.773358.3.579.2 .173 1995 Unknown [id number] 2.16.840.1.579220.3.579.2 .173 1995 Unknown [id number] 2.16.840.1.732583.3.579.2 .173 1995 Unknown [id number] 2.16.840.1.024711.3.579.2 .173 1995 Unknown [id number] 2.16.840.1.683857.3.579.2 .173 1995 Unknown [id number] 2.16.840.1.617890.3.579.2 .173 1995 Unknown [id number] 2.16.840.1.191475.3.579.2 .9 1995 Unknown [id number] 2.16.840.1.981824.3.579.2 .1258 1995 Unknown [id number] 2.16.840.1.677813.3.579.2 .9 1995 Unknown [id number] 2.16.840.1.518152.3.579.2 .9 1995 Unknown [id number] 2.16.840.1.419370.3.579.2 .9 1995 Unknown [id number] 2.16.840.1.673465.3.579.2 .1259 1959 Unknown [id number] .[id number] Social History Date Type Detail Facility Start: 03-22-2020 End: 03-26-2020 Tobacco smoking status NHIS Current every day smoker [place] Start: 05-16-2013 End: 01-02-2021 History of tobacco use Cigarette Sm[place] Start: 03-26-2020 End: 05-19-2024 Cigarettes smoked current (pack per day) - Reported [facility] Start: 03-26-2020 End: 06-17-2024 Alcohol intake Lifetime non-drinker (finding) [facility] [employer] Start: 06-01-2019 History SDOH Alcohol Frequency 1 [facility] [employer] [facility] Start: 1995 Sex Assigned At Not on file [place] Exposure to SARS-CoV -2 (event) Unable to assess [facility] [employer] ESTHER Start: 06-29-2020 End: 05-19-2024 Tobacco use and exposure Never used [employer] [place] , [place] Exposure to SARS-CoV -2 (event) Not sure [facility] [employer] ESTHER Start: 08-09-2019 End: 05-19-2024 Alcohol intake Never [facility] Start: 03-10-2021 End: 05-19-2024 Tobacco smoking status NHIS Former smoker [employer] Start: 05-16-2013 End: 01-02-2021 History of tobacco use Current [facility] Frequency of Alcohol Consumption Never [facility] Start: *Tobacco [employer] Start: 05-19-2024 Alcoholic beverage intake Ex-drinker (finding) [facility] Start: 08-29-2023 Tobacco Comment Current smoker , frequency unknown [facility] Start: 08-29-2023 Alcohol Comment caffeine: none [facility] History of Present illness Narrative 02-07-2024 Victor Manuel Rowe, PT - 02/07/2024 9:00 AM EST Note Date & Type Note Facility 02-07-2024 History of Present illness Narrative [facility] Outpatient Physical Therapy Evaluation Date: 02/07/2024 Patient: Valerie Lakhani : 1995 CSN #: [id number] Referring Physician: Mee Marsh APRN - * Medical Diagnosis: Cervical radiculopathy, M54.12; B hand numbness, R20.0 Treatment Diagnosis: L thoracic outlet syndrome; R cubital tunnel syndrome/golfer's elbow PT Insurance Information: Malaika Total # of Visits Approved: 12 Total # of Visits to Date: 1 No Show: 0 Canceled Appointment: 0 [x] This public relations writer acknowledges review of patient history form [...] depression, GERD Observations: General Observations Description: B apprentice instrument technician strength: 70lbs. B shoulder ROM is WNL's. [...] or new jar: Moderate Difficulty Do heavy yarn inspector (e.g., wash valenzuela, floors): Moderate Difficulty Nelly [...] pain up to 7/10 with certain activities.B apprentice instrument technician strength: 70lbs. B shoulder ROM is WNL's. [...] prn to decrease pain and improve mobility. Alf Goals Time Frame for Alf Goals : 6 weeks Alf Goal 1: Patient to be independent and compliant with HEP. Alf Goal 2: Patient to have (-) ULTT for R ulnar nerve and (-) Veronica test for L thoracic outlet syndrome to return to PLOF. Alf Goal 3: Patient to have improved B mid/lower trap strength >/=4+/5 for improved postural control. Alf Goal 4: Patient to report >/=75% improvement in symptoms to return to PLOF. 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 documented in this encounter [facility] Work Phone: Evaluation note Note Date & Type Note Facility Evaluation note Diagnosis Chest wall pain- Primary Painful respiration documented in this encounter [facility] Hospital Discharge instructions Attachments Note Date & Type Note Facility Hospital Discharge instructions The following attachments cannot be sent through Care Everywhere.Chest Pain: Musculoskeletal (Samoan)documented in this encounter [facility] Discharge Instructions * Attachments The following attachments cannot be sent through Care Everywhere. * Lacerations: Stitches (Samoan) documented in this encounter* Attachments The following attachments cannot be sent through Care Everywhere. * Vaginal Bleeding (Samoan) documented in this encounter* Attachments The following attachments cannot be sent through Care Everywhere. 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 [employer] provides no warranty or guarantee of the accuracy or completeness of information in this document.
[2024-09-18 11:50] LABS: Basophils Absolute Auto 0.1 10^3/uL (0.0-0.1); Basophils Percent Auto 0.9 % (0.2-2.0); Eosinophils Absolute Auto 0.1 10^3/uL (0.0-0.7); Hematocrit 38.7 % (36.0-48.0); Hemoglobin 12.5 g/dL (12.0-16.0); Immature Granulocytes Abs Auto 0.03 10^3/uL (0.00-0.03); Immature Granulocytes Pct Auto 0.6 % (0.0-0.5); Lymphocytes Absolute Auto 1.7 10^3/uL (1.2-3.8); Lymphocytes Percent Auto 31.3 % (20.5-60.0); Mean Corpuscular HGB Conc 32.3 g/dL (29.9-35.2); Mean Corpuscular Hemoglobin 27.4 pg (26.7-34.0); Mean Corpuscular Volume 84.7 fL (81.0-99.0); Mean Platelet Volume 12.6 fL (9.5-13.5); Monocytes Absolute Auto 0.3 10^3/uL (0.3-0.8); Monocytes Percent Auto 5.5 % (1.7-12.0); Neutrophils Absolute Auto 3.3 10^3/uL (1.4-6.5); Neutrophils Percent Auto 59.7 % (43.0-75.0); Platelet Count 206 10^3/uL (150-450); Red Blood Count 4.57 10^6/uL (4.20-5.40); Red Cell Distribution Width 14.2 % (11.0-15.0); White Blood Count 5.4 10^3/uL (4.0-11.0)
[2024-09-18 12:03] LABS: Estimated Average Glucose 97 mg/dL
[2024-09-18 12:28] LABS: Alanine Aminotransferase 13 U/L (14-59); Albumin Globulin Ratio 0.8; Albumin Level 3.2 g/dL (3.4-5.0); Alkaline Phosphatase 81 U/L (46-116); Aspartate Amino Transferase 11 U/L (15-37); BUN Creatinine Ratio 11.3; Bilirubin Total 0.2 mg/dL (0.2-1.0); Calcium 9.2 mg/dL (8.5-10.1); Carbon Dioxide 23.1 mmol/L (21.0-32.0); Chloride 106 mmol/L (98-107); Estimated GFR (African America >60 (>=60 mL/min/1.73m^2); Estimated GFR (Non-African Ame >60 (>=60 mL/min/1.73m^2); Globulin 4.1 g/dL; Glucose 95 mg/dL (74-106); Potassium 4.1 mmol/L (3.5-5.1); Sodium 142 mmol/L (136-145); Thyroid Stimulating Hormone 15.035 uIU/mL (0.358-3.740); Total Protein 7.3 g/dL (6.4-8.2)
== END 2024-09-18 08:11 | disposition home or self-care (01) ==
LOC: LAB 08:11
PROVIDERS: Visit Provider Physician Assistant
DX: R10.11 Right upper quadrant pain (principal)
CPT/HCPCS: 36415; 80053; 83036; 83690; 84443; 85025